=== PATIENT | male | born 1930 | race Hispanic/Latino ===

== ENCOUNTER 2017-09-20 19:32 | Inpatient (IN) | payer MEDICARE ==
[2017-09-20] MEDS ORDERED: ASPIRIN PO ONE (19:49)
[2017-09-20 20:28] LABS: Hematocrit 29.9 % (35.5-45.6); Hemoglobin 9.3 gm/dl (11.8-15.2); Mean Corpuscular HGB Conc 31 % (32-34); Mean Corpuscular Hemoglobin 31 pg (28-32); Mean Corpuscular Volume 99 fl (84-94); Platelet Count 267 K/mm3 (140-440); Red Blood Count 3.01 M/mm3 (3.65-5.03); Red Cell Distribution Width 14.9 % (13.2-15.2)
--- NOTE | 2017-09-20 20:28 | Emergency Department Report ---
ED Chest Pain HPI - General Chief Complaint: Chest Pain Stated Complaint: CHEST PAIN Time Seen by Provider: 09/20/17 20:22 Source: patient Mode of arrival: Stretcher Limitations: Altered Mental Status - History of Present Illness Initial Comments: Patient is a 87-year-old male, correction patient with history of dementia and hypertension. Patient brought to the ER for evaluation of left-sided chest pain. Patient is not communicating well but he is pointing to his left side of his chest. Unable to obtain more information at this moment. MD Complaint: chest pain -: This afternoon Onset: during rest Pain Location: left chest - Related Data Previous Rx's Medication Instructions Recorded Last Taken Type HYDROcodone/APAP 5-325 [Clarita 1 each PO Q6HR PRN #20 tablet 11/07/13 Unknown Rx 5/325] Allergies Allergy/AdvReac Type Severity Reaction Status Date / Time Penicillins Allergy Itching Verified 11/07/13 00:39 Heart Score - HEART Score History: Moderately suspicious EKG: Non-specific Age: > 65 Risk factors: 1-2 risk factors Troponin: < normal limit HEART Score: 5 - Critical Actions Critical Actions: 4-6 pts:12-16.6% risk of adverse cardiac event. Should be admitted ED Review of Systems ROS: Stated complaint: CHEST PAIN Other details as noted in HPI Comment: Unobtainable due to pts medical conditions ED Past Medical Hx - Past Medical History Hx Psychiatric Treatment: Yes (Depression) Hx COPD: Yes Hx Dementia: Yes - Surgical History Additional Surgical History: Back surgery in 2008 - Social History Smoking Status: Never Smoker Substance Use Type: None - Medications Home Medications: Home Medications Medication Instructions Recorded Confirmed Last Taken Type HYDROcodone/APAP 5-325 [Clarita 1 each PO Q6HR PRN #20 tablet 11/07/13 Unknown Rx 5/325] ED Physical Exam - General Limitations: Altered Mental Status General appearance: alert, in no apparent distress - Head Head exam: Present: atraumatic, normocephalic, normal inspection - Eye Eye exam: Present: normal appearance - ENT ENT exam: Present: normal exam, normal orophraynx, mucous membranes moist - Neck Neck exam: Present: normal inspection, full ROM. Absent: tenderness, meningismus, lymphadenopathy, thyromegaly - Respiratory Respiratory exam: Present: normal lung sounds bilaterally. Absent: respiratory distress, wheezes, rales, rhonchi, stridor, accessory muscle use, prolonged expiratory - Cardiovascular Cardiovascular Exam: Present: regular rate, normal rhythm, normal heart sounds - GI/Abdominal GI/Abdominal exam: Present: soft, normal bowel sounds. Absent: distended, tenderness, guarding, rebound, rigid, diminished bowel sounds, organomegaly, mass, bruit, pulsatile mass, hernia - Extremities Exam Extremities exam: Present: normal inspection, full ROM, normal capillary refill - Back Exam Back exam: Present: normal inspection, full ROM. Absent: tenderness, CVA tenderness (R), CVA tenderness (L), muscle spasm, paraspinal tenderness, vertebral tenderness - Neurological Exam Neurological exam: Present: alert, altered - Skin Skin exam: Present: warm, intact, normal color ED Course Vital Signs 09/20/17 19:50 Temperature 98.7 F Pulse Rate 72 Respiratory 16 Rate Blood Pressure 112/63 O2 Sat by Pulse 99 Oximetry ED Medical Decision Making - Lab Data Result diagrams: 09/20/17 20:07 09/20/17 20:07 - EKG Data -: EKG Interpreted by Me EKG shows normal: sinus rhythm Rate: normal - EKG Data Interpretation: no acute changes - Radiology Data Radiology results: image reviewed interpreted by me: Chest x-ray is unremarkable for acute findings. - Medical Decision Making I discussed the patient was Dr. Katy Gray, she agreed to admit to her service. Critical care attestation.: If time is entered above; I have spent that time in minutes in the direct care of this critically ill patient, excluding procedure time. ED Disposition Clinical Impression: Chest pain Disposition: -09 OP ADMIT IP TO THIS HOSP Is pt being admited?: Yes Condition: Stable Instructions: Chest Pain (ED)
[2017-09-20 20:39] LABS: BUN/Creatinine Ratio 22; Blood Urea Nitrogen 31 mg/dL (9-20); Calcium 8.4 mg/dL (8.4-10.2); Hemolysis Index 2
[2017-09-20 21:01] LABS: Bilirubin,Urine NEG (Negative); Blood,Urine NEG (Negative); Color,Urine Yellow (Yellow); Mucus,Urine 1+ /HPF; Urobilinogen,Urine < 2.0 mg/dL (<2.0)
[2017-09-20 21:07] LABS: Basophils % (Manual) 0 % (0.0-1.8); Ovalocytes 1+; Total Cells Counted 100
[2017-09-20 21:08] LABS: Anisocytosis 1+; Poikilocytosis 1+
[2017-09-20] MEDS ORDERED: SODIUM CHLORIDE FLUSH SYRINGE 10 ML IV PRN (22:30)
[2017-09-20] MEDS ORDERED: ZOFRAN IV PRN (22:30)
--- NOTE | 2017-09-20 22:33 | History and Physical Report ---
History of Present Illness Date of examination: 09/20/17 History of present illness: 87-year-old man with a history of dementia, depression, COPD was sent from senior care for evaluation of chest pain. The patient is unable to give a history. Review of system is unobtainable PAST MEDICAL HISTORY: Dementia, depression, COPD PAST SURGICAL HISTORY: Back surgery SOCIAL HISTORY: No alcohol, no drugs, tobacco, senior care resident FAMILY HISTORY: Hypertension Medications and Allergies Allergies Allergy/AdvReac Type Severity Reaction Status Date / Time Penicillins Allergy Itching Verified 11/07/13 00:39 Home Medications Medication Instructions Recorded Confirmed Last Taken Type Albuterol Sulfate [Ventolin HFA] 2 puff IH PRN PRN 09/20/17 09/20/17 Unknown History Donepezil [Aricept] 5 mg PO DAILY 09/20/17 09/20/17 Unknown History Ergocalciferol [Vitamin D2] 1 cap PO 2XW 09/20/17 09/20/17 Unknown History Mirtazapine [Remeron] 67.5 mg PO HS PRN 09/20/17 09/20/17 Unknown History Testosterone [Androderm] 1 each TD DAILY 09/20/17 09/20/17 Unknown History Tiotropium Br/Olodaterol HCl 1 puff IH DAILY 09/20/17 09/20/17 Unknown History [Stiolto Respimat Inhal [place]] Exam - Physical Exam Narrative exam: Gen. appearance: Patient lying in bed, no apparent distress HEENT: Normocephalic, atraumatic, pupils equally round and reactive to light, eyes are , extraocular movement intact, and no sclericterus,. No JVD or thyromegaly or nodule,neck supple, no carotid bruit ,mucous membranes moist, no exudate or erythema Heart: S1, S2, regular rate and rhythm Lungs: Clear bilaterally, breathing comfortable Abdomen: Positive bowel sounds, tender in mid abdomen, nondistended, no organomegaly Extremity:no edema cyanosis, clubbing Skin: no rash, dry, warm Neuro: Difficult to assess - Constitutional Vitals: Temp Pulse Resp BP Pulse Ox 98.7 F 71 16 124/64 96 09/20/17 19:50 09/20/17 22:06 09/20/17 22:06 09/20/17 22:06 09/20/17 22:06 Results - Labs CBC & Chem 7: 09/22/17 07:04 09/22/17 07:04 Labs: Abnormal lab results 09/20/17 09/20/17 09/20/17 Range/Units 20:07 20:07 20:44 WBC 13.9 H (4.5-11.0) K/mm3 RBC 3.01 L (3.65-5.03) M/mm3 Hgb 9.3 L (11.8-15.2) gm/dl Hct 29.9 L (35.5-45.6) % MCV 99 H (84-94) fl MCHC 31 L (32-34) % Lymphocytes % (Manual) 9.0 L (13.4-35.0) % Monocytes % (Manual) 12.0 H (0.0-7.3) % Eosinophils % (Manual) 6.0 H (0.0-4.3) % Seg Neutrophils # Man 9.7 H (1.8-7.7) K/mm3 Monocytes # (Manual) 1.7 H (0.0-0.8) K/mm3 Eosinophils # (Manual) 0.8 H (0.0-0.4) K/mm3 BUN 31 H (9-20) mg/dL Urine WBC (Auto) 13.0 H (0.0-6.0) /HPF - Imaging and Cardiology EKG: image reviewed Chest x-ray: image reviewed Assessment and Plan Assessment Chest pain UTI Dementia Depression COPD Plan Admit to medicine Check cardiac enzymes, d-dimer, consult cardiology DVT prophylaxis,, start Levaquin Continue appropriate outpatient medications
--- NOTE | 2017-09-20 22:39 | XRay Report ---
FINAL REPORT PROCEDURE: XR CHEST 1V AP TECHNIQUE: Chest radiograph anteroposterior view. CPT 64889 HISTORY: chest pain COMPARISON: No prior studies are available for comparison. FINDINGS: Heart: Normal. Mediastinum/Vessels: Normal. Lungs/Pleural space: No infiltrate, effusion, or pneumothorax is seen. There may be right pleural calcification. Bony thorax: Spinal stimulator device is present. Life support devices: None. IMPRESSION: No radiographic evidence of acute cardiopulmonary abnormality. Limited evaluation of the ribs. If there is concern for fracture, recommend dedicated rib series
[2017-09-20 23:32] LABS: Creatine Kinase MB < 1.0 ng/mL (0.0-4.0)
[2017-09-21] MEDS ORDERED: MIRTAZAPINE PO PRN (01:49)
[2017-09-21] MEDS ORDERED: PROAIR IH PRN (01:49)
[2017-09-21] MEDS ORDERED: PROVENTIL IH PRN (02:10)
[2017-09-21 08:19] LABS: Mean Corpuscular HGB Conc 33 % (32-34); Mean Corpuscular Hemoglobin 31 pg (28-32); Mean Corpuscular Volume 95 fl (84-94); Platelet Count 245 K/mm3 (140-440); Red Blood Count 2.85 M/mm3 (3.65-5.03); Red Cell Distribution Width 13.9 % (13.2-15.2)
[2017-09-21 08:21] LABS: Creatine Kinase MB < 1.0 ng/mL (0.0-4.0)
[2017-09-21 08:30] LABS: Calcium 8.3 mg/dL (8.4-10.2)
[2017-09-21 09:30] LABS: Band Neutrophils # (Manual) 0.4 K/mm3; Basophils % (Manual) 0 % (0.0-1.8); Total Cells Counted 100
[2017-09-21 09:31] LABS: Anisocytosis 1+; Platelet Estimate Consistent w Auto
[2017-09-21] MEDS ORDERED: LOVENOX SUB-Q SCH (10:00)
[2017-09-21] MEDS: SODIUM CHLORIDE FLUSH SYRINGE 10 ML IV SCH ×2 (10:29→22:00)
[2017-09-21] MEDS: LEVAQUIN 500MG/100ML 500 MG/100 ML BAG IV SCH (10:29)
[2017-09-21] MEDS: ARICEPT PO SCH (10:29)
--- NOTE | 2017-09-21 11:10 | Consultation ---
History of Present Illness Consult date: 09/21/17 Consult reason: chest pain History of present illness: This is an 87yr old male admitted with chest pain. A cardiac consultation was requested. History is unobtainable due to Dementia. No family members are present during this assessment. Patient is resting in bed and appears comfortable. He has wrist restraints in place. There were no reports of shortness of breath or palpitations. Cycled cardiac enzymes were normal. He has a negative chest x-ray. His ECG is benign, a normal sinus rhythm. Medications and Allergies Allergies Allergy/AdvReac Type Severity Reaction Status Date / Time Penicillins Allergy Itching Verified 11/07/13 00:39 Home Medications Medication Instructions Recorded Confirmed Last Taken Type Albuterol Sulfate [Ventolin HFA] 2 puff IH PRN PRN 09/20/17 09/20/17 Unknown History Donepezil [Aricept] 5 mg PO DAILY 09/20/17 09/20/17 Unknown History Ergocalciferol [Vitamin D2] 1 cap PO 2XW 09/20/17 09/20/17 Unknown History Mirtazapine [Remeron] 67.5 mg PO HS PRN 09/20/17 09/20/17 Unknown History Testosterone [Androderm] 1 each TD DAILY 09/20/17 09/20/17 Unknown History Tiotropium Br/Olodaterol HCl 1 puff IH DAILY 09/20/17 09/20/17 Unknown History [Stiolto Respimat Inhal [place]] Active Meds: Active Medications Acetaminophen (Tylenol) 650 mg PO Q4H PRN PRN Reason: Pain MILD(1-3)/Fever >100.5/[place] Albuterol (Proventil) 2.5 mg IH Q3HRT PRN PRN Reason: Shortness Of Breath Donepezil HCl (Aricept) 5 mg PO DAILY [facility] Last Admin: 09/21/17 10:29 Dose: 5 mg Enoxaparin Sodium (Lovenox) 40 mg SUB-Q QDAY NILDA Last Admin: 09/21/17 10:29 Dose: 40 mg Levofloxacin/Dextrose (Levaquin 500mg/100ml) 500 mg in 100 mls @ 100 mls/hr IV Q24HR NILDA; Protocol Last Admin: 09/21/17 10:29 Dose: 100 mls/hr Miscellaneous Medication (Mirtazapine [Remeron]) 67.5 mg PO HS PRN PRN Reason: Sleep Ondansetron HCl (Zofran) 4 mg IV Q8H PRN PRN Reason: Nausea And Vomiting Sodium Chloride (Sodium Chloride Flush Syringe 10 Ml) 10 ml IV BID NILDA Last Admin: 09/21/17 10:29 Dose: 10 ml Sodium Chloride (Sodium Chloride Flush Syringe 10 Ml) 10 ml IV PRN PRN PRN Reason: LINE FLUSH Physical Examination Vital Signs Temp Pulse Resp BP Pulse Ox 98.7 F 72 16 112/63 99 09/20/17 19:50 09/20/17 19:50 09/20/17 19:50 09/20/17 19:50 09/20/17 19:50 General appearance: no acute distress Cardiac: Positive: Reg Rate and Rhythm Results 09/21/17 07:14 09/21/17 07:14 Cardiac Enzymes 09/20/17 09/21/17 Range/Units 22:30 07:14 CK-MB (CK-2) < 1.0 < 1.0 (0.0-4.0) ng/mL CBC 09/20/17 09/21/17 Range/Units 20:07 07:14 WBC 13.9 H 13.1 H (4.5-11.0) K/mm3 RBC 3.01 L 2.85 L (3.65-5.03) M/mm3 Hgb 9.3 L 9.0 L (11.8-15.2) gm/dl Hct 29.9 L 27.0 L (35.5-45.6) % Plt Count 267 245 (140-440) K/mm3 Lymph # Pss Delivery Professional [place] # Pss Delivery Professional Eos # Pss Delivery Professional Baso # Pss Delivery Professional Comprehensive Metabolic Panel 09/20/17 09/21/17 Range/Units 20:07 07:14 Sodium 144 145 (137-145) mmol/L Potassium 3.9 3.9 (3.6-5.0) mmol/L Chloride 106.0 107.0 (98-107) mmol/L Carbon Dioxide 23 24 (22-30) mmol/L BUN 31 H 26 H (9-20) mg/dL Creatinine 1.4 1.2 (0.8-1.5) mg/dL Glucose 98 84 (75-100) mg/dL Calcium 8.4 8.3 L (8.4-10.2) mg/dL Assessment and Plan - Patient Problems (1) Chest pain Current Visit: Yes Status: Acute
[2017-09-21] MEDS ORDERED: ATIVAN IV NR (13:28)
--- NOTE | 2017-09-21 17:36 | Progress Note ---
Assessment and Plan Assessment and plan: Mr. Maguire is a 87 yo man from [facility] w/ a h/o hypertension and Dementia who pw chest pains * pCXR unremarkable for acute cardiopulmonary abnormality * WBC 13.1 * UA positive for UTI * Hgb 9.0 * D-Dimer 6059.16 * negative Troponin T x 4 * -Chest pains, atypical with elevated d-dimer: order stat CTA chest -UTI: treat with abx, no cultures sent -Acute encephalopathy -ARF, vasomotor nephrology, poa (no prior baseline cr) vs CKD 3: repeat bmp in am -Anemia: repeat levels -DVT prophylaxis: sq heparin History Interval history: Patient was seen and examined. Follow-up on current diagnosis of ams, still present. Overnight uneventful. Patient is confused. Imaging, nursing note, chart , labs and old chart reviewed. Hospitalist Physical - Physical exam Narrative exam: GEN: thin frail NAD, Awake, Alert, Orientated x0 HEENT: NCAT, EOMI, PERRL, OP Clear NECK: supple, no adenopathy, no thyromegaly, no JVD CVS/HEART: RRR, normal S1S2, pulses present bilaterally CHEST/LUNGS: CTA B, Symmetrical chest expansion, good air entry bilaterally GI/Abdomen: soft, NTND, good bowel sounds, no guarding or rebound /Bladder: no suprapubic tenderness, no CVA or paraspinal tenderness EXT/Skin: no c/c/e, no obvious rash MSK: FROM x 4 Neuro: CN 2-12 grossly intact, no new focal deficits Psych: calm but confused - Constitutional Vitals: Temp Pulse Resp BP Pulse Ox 98.8 F 70 18 133/71 95 09/21/17 09:00 09/21/17 15:00 09/21/17 10:00 09/21/17 08:18 09/21/17 10:00 General appearance: Present: no acute distress Results - Labs CBC & Chem 7: 09/21/17 07:14 09/21/17 07:14 Labs: Laboratory Last Values WBC 13.1 K/mm3 (4.5-11.0) H 09/21/17 07:14 RBC 2.85 M/mm3 (3.65-5.03) L 09/21/17 07:14 Hgb 9.0 gm/dl (11.8-15.2) L 09/21/17 07:14 Hct 27.0 % (35.5-45.6) L 09/21/17 07:14 MCV 95 fl (84-94) H 09/21/17 07:14 MCH 31 pg (28-32) 09/21/17 07:14 MCHC 33 % (32-34) 09/21/17 07:14 RDW 13.9 % (13.2-15.2) 09/21/17 07:14 Plt Count 245 K/mm3 (140-440) 09/21/17 07:14 Lymph % (Auto) Driller Portable 09/20/17 20:07 [place] % (Auto) Driller Portable 09/20/17 20:07 Eos % (Auto) Driller Portable 09/20/17 20:07 Baso % (Auto) Driller Portable 09/20/17 20:07 Lymph # Driller Portable 09/20/17 20:07 [place] # Driller Portable 09/20/17 20:07 Eos # Driller Portable 09/20/17 20:07 Baso # Driller Portable 09/20/17 20:07 Add Manual Diff Complete 09/21/17 07:14 Total Counted 100 09/21/17 07:14 Seg Neutrophils % Driller Portable 09/20/17 20:07 Seg Neuts % (Manual) 72.0 % (40.0-70.0) H 09/21/17 07:14 Band Neutrophils % 3.0 % 09/21/17 07:14 Lymphocytes % (Manual) 9.0 % (13.4-35.0) L 09/21/17 07:14 Reactive Lymphs % (Man) 0 % 09/21/17 07:14 Monocytes % (Manual) 13.0 % (0.0-7.3) H 09/21/17 07:14 Eosinophils % (Manual) 3.0 % (0.0-4.3) 09/21/17 07:14 Basophils % (Manual) 0 % (0.0-1.8) 09/21/17 07:14 Metamyelocytes % 0 % 09/21/17 07:14 Myelocytes % 0 % 09/21/17 07:14 Promyelocytes % 0 % 09/21/17 07:14 Blast Cells % 0 % 09/21/17 07:14 Nucleated RBC % Not Reportable 09/21/17 07:14 Seg Neutrophils # Driller Portable 09/20/17 20:07 Seg Neutrophils # Man 9.4 K/mm3 (1.8-7.7) H 09/21/17 07:14 Band Neutrophils # 0.4 K/mm3 09/21/17 07:14 Lymphocytes # (Manual) 1.2 K/mm3 (1.2-5.4) 09/21/17 07:14 Abs React Lymphs (Man) 0.0 K/mm3 09/21/17 07:14 Monocytes # (Manual) 1.7 K/mm3 (0.0-0.8) H 09/21/17 07:14 Eosinophils # (Manual) 0.4 K/mm3 (0.0-0.4) 09/21/17 07:14 Basophils # (Manual) 0.0 K/mm3 (0.0-0.1) 09/21/17 07:14 Metamyelocytes # 0.0 K/mm3 09/21/17 07:14 Myelocytes # 0.0 K/mm3 09/21/17 07:14 Promyelocytes # 0.0 K/mm3 09/21/17 07:14 Blast Cells # 0.0 K/mm3 09/21/17 07:14 WBC Morphology Not Reportable 09/21/17 07:14 Hypersegmented Neuts Not Reportable 09/21/17 07:14 Hyposegmented Neuts Not Reportable 09/21/17 07:14 Hypogranular Neuts Not Reportable 09/21/17 07:14 Smudge Cells Not Reportable 09/21/17 07:14 Toxic Granulation Not Reportable 09/21/17 07:14 Toxic Vacuolation Not Reportable 09/21/17 07:14 Dohle Bodies Not Reportable 09/21/17 07:14 Pelger-Huet Anomaly Not Reportable 09/21/17 07:14 Vincenzo Rods Not Reportable 09/21/17 07:14 Platelet Estimate Consistent w auto 09/21/17 07:14 Clumped Platelets Not Reportable 09/21/17 07:14 Plt Clumps, EDTA Not Reportable 09/21/17 07:14 Large Platelets Not Reportable 09/21/17 07:14 Giant Platelets Not Reportable 09/21/17 07:14 Platelet Satelliting Not Reportable 09/21/17 07:14 Plt Morphology Comment Not Reportable 09/21/17 07:14 RBC Morphology Not Reportable 09/21/17 07:14 Dimorphic RBCs Not Reportable 09/21/17 07:14 Polychromasia Rare 09/21/17 07:14 Hypochromasia Not Reportable 09/21/17 07:14 Poikilocytosis Not Reportable 09/21/17 07:14 Anisocytosis 1+ 09/21/17 07:14 Microcytosis Not Reportable 09/21/17 07:14 Macrocytosis Not Reportable 09/21/17 07:14 Spherocytes Not Reportable 09/21/17 07:14 Pappenheimer Bodies Not Reportable 09/21/17 07:14 Sickle Cells Not Reportable 09/21/17 07:14 Target Cells Not Reportable 09/21/17 07:14 Tear Drop Cells Not Reportable 09/21/17 07:14 Ovalocytes Not Reportable 09/21/17 07:14 Helmet Cells Not Reportable 09/21/17 07:14 [place] Bodies Not Reportable 09/21/17 07:14 [place] Rings Not Reportable 09/21/17 07:14 [place] Cells Not Reportable 09/21/17 07:14 Bite Cells Not Reportable 09/21/17 07:14 Crenated Cell Not Reportable 09/21/17 07:14 Elliptocytes Not Reportable 09/21/17 07:14 Acanthocytes (Spur) Not Reportable 09/21/17 07:14 Rouleaux Not Reportable 09/21/17 07:14 Hemoglobin C Crystals Not Reportable 09/21/17 07:14 Schistocytes Not Reportable 09/21/17 07:14 Malaria parasites Not Reportable 09/21/17 07:14 [place] Bodies Not Reportable 09/21/17 07:14 Hem Pathologist Commnt No 09/21/17 07:14 D-Dimer 6059.16 ng/mlDDU (0-234) H 09/21/17 02:12 Sodium 145 mmol/L (137-145) 09/21/17 07:14 Potassium 3.9 mmol/L (3.6-5.0) 09/21/17 07:14 Chloride 107.0 mmol/L (98-107) 09/21/17 07:14 Carbon Dioxide 24 mmol/L (22-30) 09/21/17 07:14 Anion Gap 18 mmol/L 09/21/17 07:14 BUN 26 mg/dL (9-20) H 09/21/17 07:14 Creatinine 1.2 mg/dL (0.8-1.5) 09/21/17 07:14 Estimated GFR 57 ml/min 09/21/17 07:14 BUN/Creatinine Ratio 22 % 09/21/17 07:14 Glucose 84 mg/dL (75-100) 09/21/17 07:14 Calcium 8.3 mg/dL (8.4-10.2) L 09/21/17 07:14 Total Creatine Kinase 40 units/L (55-170) L 09/21/17 07:14 CK-MB (CK-2) < 1.0 ng/mL (0.0-4.0) 09/21/17 07:14 CK-MB (CK-2) Rel Index 2.5 (0-4) 09/21/17 07:14 Troponin T < 0.010 ng/mL (0.00-0.029) 09/21/17 07:14 Urine Color Yellow (Yellow) 09/20/17 20:44 Urine Turbidity Clear (Clear) 09/20/17 20:44 Urine pH 5.0 (5.0-7.0) 09/20/17 20:44 Ur Specific [place] 1.025 (1.003-1.030) 09/20/17 20:44 Urine Protein 30 mg/dl mg/dL (Negative) 09/20/17 20:44 Urine Glucose (UA) Neg mg/dL (Negative) 09/20/17 20:44 Urine Ketones Tr mg/dL (Negative) 09/20/17 20:44 Urine Blood Neg (Negative) 09/20/17 20:44 Urine Nitrite Neg (Negative) 09/20/17 20:44 Urine Bilirubin Neg (Negative) 09/20/17 20:44 Urine Urobilinogen < 2.0 mg/dL (<2.0) 09/20/17 20:44 Ur Leukocyte Esterase Sm (Negative) 09/20/17 20:44 Urine WBC (Auto) 13.0 /HPF (0.0-6.0) H 09/20/17 20:44 Urine RBC (Auto) 1.0 /HPF (0.0-6.0) 09/20/17 20:44 U Epithel Cells (Auto) < 1.0 /HPF (0-13.0) 09/20/17 20:44 Urine Mucus 1+ /HPF 09/20/17 20:44
[2017-09-22 08:14] LABS: Hematocrit 28.3 % (35.5-45.6); Hemoglobin 9.4 gm/dl (11.8-15.2); Mean Corpuscular HGB Conc 33 % (32-34); Mean Corpuscular Hemoglobin 32 pg (28-32); Mean Corpuscular Volume 95 fl (84-94); Platelet Count 263 K/mm3 (140-440); Red Blood Count 2.97 M/mm3 (3.65-5.03); Red Cell Distribution Width 14.1 % (13.2-15.2)
[2017-09-22 08:24] LABS: BUN/Creatinine Ratio 23; Blood Urea Nitrogen 23 mg/dL (9-20); Calcium 8.3 mg/dL (8.4-10.2); Hemolysis Index 5
--- NOTE | 2017-09-22 10:54 | Cat Scan Report ---
CTA CHEST: HISTORY: chest pain. COMPARISON: none. TECHNIQUE: Helical CT in 1.25mm intervals following IV contrast. Pulmonary embolus protocol. Sagittal and coronal reformatted images. Rotational MIP images. FINDINGS: Contrast bolus is satisfactory. No pulmonary embolus is identified. Thyroid gland: The right thyroid lobe is mildly enlarged and heterogeneous. The left thyroid lobe is normal. Tracheobronchial tree: Normal. Esophagus: Normal. Heart: Normal. Pericardium: Normal. Mediastinum: Normal. Lung [place]: Moderate centrilobular emphysematous changes are identified bilaterally. Pleural Spaces: Trace bilateral pleural fluid effusions are identified. No pneumothorax. Musculoskeletal: Subtle nondisplaced left posterior rib fractures are identified at levels 8-10. The spleen is heterogeneous with suggestion of intermediate density perisplenic fluid. In a splenic laceration should be considered. IMPRESSION: No evidence for pulmonary embolus. Emphysema. Left posterior rib fractures at levels 8-10. Findings suspicious for a splenic laceration. Consider further evaluation of the abdomen and pelvis.
--- NOTE | 2017-09-22 11:05 | Progress Note ---
Assessment and Plan - Patient Problems (1) Elevated d-dimer Current Visit: Yes Status: Acute Plan to address problem: Patient's chest pain complaint is not reproducible, confusion and disorientation provides unreliable history. Due to marked elevation in d-dimer, we have recommended a CT of the chest for PE protocol. Otherwise no further cardiac ischemic workup is indicated in the absence of angina or ECG abnormalities. Subjective Date of service: 09/22/17 Interval history: Patient is confused, no acute cardiac problems. Objective Vital Signs Temp Pulse Pulse Resp BP BP Pulse Ox 09/22/17 09:07 95 09/22/17 08:03 61 82 L 09/22/17 08:01 98.2 F 20 163/68 09/22/17 06:02 97.6 F 68 18 126/58 94 09/22/17 02:53 73 18 09/22/17 01:22 98.2 F 68 18 110/68 98 09/21/17 23:00 79 09/21/17 21:14 97 09/21/17 20:28 79 F L 20 125/55 98 09/21/17 19:55 73 95 09/21/17 17:00 98.2 F 67 20 133/66 99 09/21/17 15:00 70 - Physical Examination General: Other (confused and disoriented) HEENT: Positive: PERRL Neck: Positive: neck supple Cardiac: Positive: Reg Rate and Rhythm Lungs: Positive: Decreased Breath Sounds Neuro: Positive: Grossly Intact Abdomen: Positive: Soft Skin: Positive: Clear Extremities: Absent: edema - Labs and Meds CBC 09/22/17 Range/Units 07:04 WBC 13.5 H (4.5-11.0) K/mm3 RBC 2.97 L (3.65-5.03) M/mm3 Hgb 9.4 L (11.8-15.2) gm/dl Hct 28.3 L (35.5-45.6) % Plt Count 263 (140-440) K/mm3 Comprehensive Metabolic Panel 09/22/17 Range/Units 07:04 Sodium 148 H (137-145) mmol/L Potassium 4.0 (3.6-5.0) mmol/L Chloride 109.2 H (98-107) mmol/L Carbon Dioxide 24 (22-30) mmol/L BUN 23 H (9-20) mg/dL Creatinine 1.0 (0.8-1.5) mg/dL Glucose 78 (75-100) mg/dL Calcium 8.3 L (8.4-10.2) mg/dL - Imaging and Cardiology EKG: image reviewed
[2017-09-22] MEDS: HEPARIN SUB-Q SCH ×2 (11:08→22:52)
[2017-09-22] MEDS: LEVAQUIN 500MG/100ML 500 MG/100 ML BAG IV SCH (11:08)
[2017-09-22] MEDS: ARICEPT PO SCH (11:08)
[2017-09-22] MEDS: SODIUM CHLORIDE FLUSH SYRINGE 10 ML IV SCH ×2 (11:09→23:00)
--- NOTE | 2017-09-22 15:08 | Progress Note ---
Assessment and Plan Assessment and plan: Mr. Maguire is a 87 yo man from [facility] called [facility] with a h/o hypertension and Dementia who pw chest pains * pCXR unremarkable for acute cardiopulmonary abnormality * WBC 13.1 * UA positive for UTI * Hgb 9.0 * D-Dimer 6059.16 * negative Troponin T x 4 * -Chest pains, atypical with elevated d-dimer: order stat CTA chest -Splenic laceration: stat Surgeon consult, I called Dr. Smith's answering service -Rib fractures: supportative care. -UTI: treat with abx, no cultures sent -Acute encephalopathy -ARF, vasomotor nephrology, poa (no prior baseline cr) w/CKD 3: repeat bmp in am -Anemia: repeat levels -DVT prophylaxis: sq heparin CTA chest wasn't done yesterday because no consent was obtained. i signed the consent. CTA chest done IMPRESSION: No evidence for pulmonary embolus. Emphysema. Left posterior rib fractures at levels 8-10. Findings suspicious for a splenic laceration. Consider further evaluation of the abdomen and pelvis. Consult Gen. Surgeon geriatric personal care aide, Dr. Smith, i called answering service, spoke with [facility] message. Dr. Moser is covering, await call back CCT 32 minutes History Interval history: Patient was seen and examined. Follow-up on current diagnosis of ams, still present. Overnight uneventful. Patient is confused. Imaging, nursing note, chart , labs and old chart reviewed. Hospitalist Physical - Physical exam Narrative exam: GEN: thin frail NAD, Awake, Alert, Orientated x2 HEENT: NCAT, EOMI, PERRL, OP Clear NECK: supple, no adenopathy, no thyromegaly, no JVD CVS/HEART: RRR, normal S1S2, pulses present bilaterally CHEST/LUNGS: CTA B, Symmetrical chest expansion, good air entry bilaterally GI/Abdomen: soft, NTND, good bowel sounds, no guarding or rebound /Bladder: no suprapubic tenderness, no CVA or paraspinal tenderness EXT/Skin: no c/c/e, no obvious rash MSK: FROM x 4 Neuro: CN 2-12 grossly intact, no new focal deficits Psych: calm but confused - Constitutional Vitals: Temp Pulse Resp BP Pulse Ox 98.2 F 113 H 18 116/71 84 09/22/17 11:16 07/04/18 11:17 09/22/17 11:16 09/22/17 11:16 09/22/17 11:17 General appearance: Present: no acute distress Results - Labs CBC & Chem 7: 09/22/17 07:04 09/22/17 07:04 Labs: Laboratory Last Values WBC 13.5 K/mm3 (4.5-11.0) H 09/22/17 07:04 RBC 2.97 M/mm3 (3.65-5.03) L 09/22/17 07:04 Hgb 9.4 gm/dl (11.8-15.2) L 09/22/17 07:04 Hct 28.3 % (35.5-45.6) L 09/22/17 07:04 MCV 95 fl (84-94) H 09/22/17 07:04 MCH 32 pg (28-32) 09/22/17 07:04 MCHC 33 % (32-34) 09/22/17 07:04 RDW 14.1 % (13.2-15.2) 09/22/17 07:04 Plt Count 263 K/mm3 (140-440) 09/22/17 07:04 Lymph % (Auto) [employer] 09/20/17 20:07 [place] % (Auto) [employer] 09/20/17 20:07 Eos % (Auto) [employer] 09/20/17 20:07 Baso % (Auto) [employer] 09/20/17 20:07 Lymph # [employer] 09/20/17 20:07 [place] # [employer]er 09/20/17 20:07 Eos # [employer] 09/20/17 20:07 Baso # [employer] 09/20/17 20:07 Add Manual Diff Complete 09/21/17 07:14 Total Counted 100 09/21/17 07:14 Seg Neutrophils % [employer] 09/20/17 20:07 Seg Neuts % (Manual) 72.0 % (40.0-70.0) H 09/21/17 07:14 Band Neutrophils % 3.0 % 09/21/17 07:14 Lymphocytes % (Manual) 9.0 % (13.4-35.0) L 09/21/17 07:14 Reactive Lymphs % (Man) 0 % 09/21/17 07:14 Monocytes % (Manual) 13.0 % (0.0-7.3) H 09/21/17 07:14 Eosinophils % (Manual) 3.0 % (0.0-4.3) 09/21/17 07:14 Basophils % (Manual) 0 % (0.0-1.8) 09/21/17 07:14 Metamyelocytes % 0 % 09/21/17 07:14 Myelocytes % 0 % 09/21/17 07:14 Promyelocytes % 0 % 09/21/17 07:14 Blast Cells % 0 % 09/21/17 07:14 Nucleated RBC % Not Reportable 09/21/17 07:14 Seg Neutrophils # [employer] 09/20/17 20:07 Seg Neutrophils # Man 9.4 K/mm3 (1.8-7.7) H 09/21/17 07:14 Band Neutrophils # 0.4 K/mm3 09/21/17 07:14 Lymphocytes # (Manual) 1.2 K/mm3 (1.2-5.4) 09/21/17 07:14 Abs React Lymphs (Man) 0.0 K/mm3 09/21/17 07:14 Monocytes # (Manual) 1.7 K/mm3 (0.0-0.8) H 09/21/17 07:14 Eosinophils # (Manual) 0.4 K/mm3 (0.0-0.4) 09/21/17 07:14 Basophils # (Manual) 0.0 K/mm3 (0.0-0.1) 09/21/17 07:14 Metamyelocytes # 0.0 K/mm3 09/21/17 07:14 Myelocytes # 0.0 K/mm3 09/21/17 07:14 Promyelocytes # 0.0 K/mm3 09/21/17 07:14 Blast Cells # 0.0 K/mm3 09/21/17 07:14 WBC Morphology Not Reportable 09/21/17 07:14 Hypersegmented Neuts Not Reportable 09/21/17 07:14 Hyposegmented Neuts Not Reportable 09/21/17 07:14 Hypogranular Neuts Not Reportable 09/21/17 07:14 Smudge Cells Not Reportable 09/21/17 07:14 Toxic Granulation Not Reportable 09/21/17 07:14 Toxic Vacuolation Not Reportable 09/21/17 07:14 Dohle Bodies Not Reportable 09/21/17 07:14 Pelger-Huet Anomaly Not Reportable 09/21/17 07:14 Vincenzo Rods Not Reportable 09/21/17 07:14 Platelet Estimate Consistent w auto 09/21/17 07:14 Clumped Platelets Not Reportable 09/21/17 07:14 Plt Clumps, EDTA Not Reportable 09/21/17 07:14 Large Platelets Not Reportable 09/21/17 07:14 Giant Platelets Not Reportable 09/21/17 07:14 Platelet Satelliting Not Reportable 09/21/17 07:14 Plt Morphology Comment Not Reportable 09/21/17 07:14 RBC Morphology Not Reportable 09/21/17 07:14 Dimorphic RBCs Not Reportable 09/21/17 07:14 Polychromasia Rare 09/21/17 07:14 Hypochromasia Not Reportable 09/21/17 07:14 Poikilocytosis Not Reportable 09/21/17 07:14 Anisocytosis 1+ 09/21/17 07:14 Microcytosis Not Reportable 09/21/17 07:14 Macrocytosis Not Reportable 09/21/17 07:14 Spherocytes Not Reportable 09/21/17 07:14 Pappenheimer Bodies Not Reportable 09/21/17 07:14 Sickle Cells Not Reportable 09/21/17 07:14 Target Cells Not Reportable 09/21/17 07:14 Tear Drop Cells Not Reportable 09/21/17 07:14 Ovalocytes Not Reportable 09/21/17 07:14 Helmet Cells Not Reportable 09/21/17 07:14 [place] Bodies Not Reportable 09/21/17 07:14 [place] Rings Not Reportable 09/21/17 07:14 [place] Cells Not Reportable 09/21/17 07:14 Bite Cells Not Reportable 09/21/17 07:14 Crenated Cell Not Reportable 09/21/17 07:14 Elliptocytes Not Reportable 09/21/17 07:14 Acanthocytes (Spur) Not Reportable 09/21/17 07:14 Rouleaux Not Reportable 09/21/17 07:14 Hemoglobin C Crystals Not Reportable 09/21/17 07:14 Schistocytes Not Reportable 09/21/17 07:14 Malaria parasites Not Reportable 09/21/17 07:14 [place] Bodies Not Reportable 09/21/17 07:14 Hem Pathologist Commnt No 09/21/17 07:14 D-Dimer 6059.16 ng/mlDDU (0-234) H 09/21/17 02:12 Sodium 148 mmol/L (137-145) H 09/22/17 07:04 Potassium 4.0 mmol/L (3.6-5.0) 09/22/17 07:04 Chloride 109.2 mmol/L (98-107) H 09/22/17 07:04 Carbon Dioxide 24 mmol/L (22-30) 09/22/17 07:04 Anion Gap 19 mmol/L 09/22/17 07:04 BUN 23 mg/dL (9-20) H 09/22/17 07:04 Creatinine 1.0 mg/dL (0.8-1.5) 09/22/17 07:04 Estimated GFR > 60 ml/min 09/22/17 07:04 BUN/Creatinine Ratio 23 % 09/22/17 07:04 Glucose 78 mg/dL (75-100) 09/22/17 07:04 Calcium 8.3 mg/dL (8.4-10.2) L 09/22/17 07:04 Total Creatine Kinase 40 units/L (55-170) L 09/21/17 07:14 CK-MB (CK-2) < 1.0 ng/mL (0.0-4.0) 09/21/17 07:14 CK-MB (CK-2) Rel Index 2.5 (0-4) 09/21/17 07:14 Troponin T < 0.010 ng/mL (0.00-0.029) 09/21/17 07:14 Urine Color Yellow (Yellow) 09/20/17 20:44 Urine Turbidity Clear (Clear) 09/20/17 20:44 Urine pH 5.0 (5.0-7.0) 09/20/17 20:44 Ur Specific [place] 1.025 (1.003-1.030) 09/20/17 20:44 Urine Protein 30 mg/dl mg/dL (Negative) 09/20/17 20:44 Urine Glucose (UA) Neg mg/dL (Negative) 09/20/17 20:44 Urine Ketones Tr mg/dL (Negative) 09/20/17 20:44 Urine Blood Neg (Negative) 09/20/17 20:44 Urine Nitrite Neg (Negative) 09/20/17 20:44 Urine Bilirubin Neg (Negative) 09/20/17 20:44 Urine Urobilinogen < 2.0 mg/dL (<2.0) 09/20/17 20:44 Ur Leukocyte Esterase Sm (Negative) 09/20/17 20:44 Urine WBC (Auto) 13.0 /HPF (0.0-6.0) H 09/20/17 20:44 Urine RBC (Auto) 1.0 /HPF (0.0-6.0) 09/20/17 20:44 U Epithel Cells (Auto) < 1.0 /HPF (0-13.0) 09/20/17 20:44 Urine Mucus 1+ /HPF 09/20/17 20:44
--- NOTE | 2017-09-22 22:33 | Consultation ---
HISTORY OF PRESENT ILLNESS: This man was a resident in a [facility]. Apparently, he was transferred here because of questionable chest pain. The patient is an 87-year-old white male with a history of dementia, depression, and COPD. I could not get any specific history from him. I was called to evaluate him because of questionable laceration of the spleen. The patient on the x-ray and the CAT scan showed evidence of questionable fractures to the posterior rib on the left side, only 1. Chest x-ray was essentially negative. Chest CT was negative. CBC showed a white count of 13,000 over the last 3 days and his hemoglobin was 9.3. His platelets were 250 all through. His potassium was normal. Sodium was normal. Chloride was normal. BUN was 31, today is 23. His troponins were normal. I was asked to evaluate him from a general surgical point of view especially that there is questionable spleen laceration. I was barely able to communicate with the man, he looked demented, but he is normal otherwise. PHYSICAL EXAMINATION: HEAD AND NECK: Essentially negative. Neck is supple. CHEST: Essentially clear to me. HEART: Sounds normal. ABDOMEN: Protuberant, soft, benign. No evidence of any acute tenderness anywhere. EXTREMITIES: Showed no sign of edema. NEUROLOGIC: Physiologic other than being demented. IMPRESSION: Normal examination, surgery araya. Dementia. Fracture of the rib in the left side by history. No evidence of any left upper abdominal tenderness to suggest any spleen laceration. At this point, I would just continue observation. I am going to check his CBC in the morning and then we will go from there. The patient is already on clear liquids and he is on Levaquin. JOB# [id number] RADHA/NINFA MERINO
[2017-09-22] MEDS: TYLENOL PO PRN (23:00)
[2017-09-23] MEDS: ARICEPT PO SCH (10:48)
[2017-09-23] MEDS: HEPARIN SUB-Q SCH ×2 (10:49→21:58)
[2017-09-23] MEDS: SODIUM CHLORIDE FLUSH SYRINGE 10 ML IV SCH ×2 (10:49→21:59)
[2017-09-23] MEDS: LEVAQUIN 500MG/100ML 500 MG/100 ML BAG IV SCH (10:49)
--- NOTE | 2017-09-23 13:15 | Progress Note ---
Subjective Patient Reports: Positive: feels better Narrative: doing fine , no aches no pains abd soft and benign tolerating PO well can go Home fro a surgical view point . Objective Vital Signs - 12hr 09/23/17 09/23/17 09/23/17 05:21 07:00 07:51 Temperature 98.1 F Pulse Rate 78 69 75 Respiratory 18 20 Rate Blood Pressure 131/70 136/71 O2 Sat by Pulse 91 93 Oximetry 09/23/17 08:00 Temperature 98.1 F Pulse Rate Respiratory Rate Blood Pressure O2 Sat by Pulse Oximetry - Labs 09/22/17 07:04 09/22/17 07:04
--- NOTE | 2017-09-23 13:59 | Progress Note ---
Assessment and Plan - Patient Problems (1) Chest pain Current Visit: Yes Status: Acute Plan to address problem: Atypical noncardiac chest pain, conservative cardiac management. Subjective Date of service: 09/23/17 Interval history: Patient is comfortable, in no acute distress. Chest CT scan showed posterior rib fractures with possible spleen laceration, the internal medicine service is evaluating these findings. Objective Vital Signs Temp Pulse Resp BP BP Pulse Ox 09/23/17 12:25 80 20 105/64 92 09/23/17 12:00 99.3 F 80 20 105/64 93 09/23/17 08:00 98.1 F 09/23/17 07:51 75 20 136/71 93 09/23/17 07:00 69 09/23/17 05:21 98.1 F 78 18 131/70 91 09/22/17 23:28 98.2 F 74 18 118/56 93 09/22/17 22:00 20 09/22/17 20:00 97.8 F 90 18 116/67 90 09/22/17 15:41 98.4 F 18 121/68 - Physical Examination General: No Apparent Distress HEENT: Positive: PERRL Neck: Positive: neck supple Cardiac: Positive: Reg Rate and Rhythm Lungs: Positive: Decreased Breath Sounds Neuro: Positive: Grossly Intact Abdomen: Positive: Soft Skin: Positive: Clear Extremities: Absent: edema - Imaging and Cardiology EKG: image reviewed
--- NOTE | 2017-09-23 14:32 | XRay Report ---
AP CHEST: HISTORY: Short of breath Compared to the exams dated 09/20/17 and 09/22/17. Moderate underlying emphysema is again noted. Trace bilateral pleural effusions are again identified. A small amount of fluid is noted in the right major fissure which simulates a mass. No evidence for pneumonia or pneumothorax. Heart size is within normal limits. Previously described left rib fractures are not appreciated on this exam. IMPRESSION: Emphysema. Trace pleural effusions. No significant change since previous exams.
--- NOTE | 2017-09-23 15:08 | Progress Note ---
Assessment and Plan Assessment and plan: Mr. Maguire is a 87 yo man from [facility] called [facility] with a h/o hypertension and Dementia who pw chest pains * pCXR unremarkable for acute cardiopulmonary abnormality * WBC 13.1 * UA positive for UTI * Hgb 9.0 * D-Dimer 6059.16 * negative Troponin T x 4 * -Chest pains, atypical, costochondritis most likely with rib fractures -Acute COPD exacerbation: start steroids, duonebs and continue Levaquin -Splenic laceration: stat Surgeon consult, I called Dr. Smith's answering service -Rib fractures: supportative care. -UTI, poa: treat with abx, no urine cultures sent on admission -Acute encephalopathy -ARF, vasomotor nephrology, poa (no prior baseline cr) w/CKD 3: repeat bmp in am -Anemia: repeat levels -DVT prophylaxis: sq heparin -Splenic laceration evaluated by Surgeon, Dr. Moser -Disposition: continue inpatient care, anticipate d/c in AM Not in restraints anymore * CTA chest IMPRESSION: No evidence for pulmonary embolus. Emphysema. Left posterior rib fractures at levels 8-10. Findings suspicious for a splenic laceration. Consider further evaluation of the abdomen and pelvis. Today he developed acute respiratory distress with bilateral wheezing, most likely AE copd; will treat according, wasn't hypoxic, reviewed ABGs. ordered stat CXR==>patient condition stabilized, possibly d/c tomorrow CCT 36 minutes History Interval history: Patient was seen and examined. Follow-up on current diagnosis of ams, still present. Overnight uneventful. Patient is confused. Imaging, nursing note, chart , labs and old chart reviewed. Today he started to gasp for air, he was choking. He had auditory wheezing. Hospitalist Physical - Physical exam Narrative exam: GEN: thin frail NAD, Awake, Alert, Orientated x2 HEENT: NCAT, EOMI, PERRL, OP Clear NECK: supple, no adenopathy, no thyromegaly, no JVD CVS/HEART: RRR, normal S1S2, pulses present bilaterally CHEST/LUNGS: bilateral wheezing, Symmetrical chest expansion, good air entry bilaterally GI/Abdomen: soft, NTND, good bowel sounds, no guarding or rebound /Bladder: no suprapubic tenderness, no CVA or paraspinal tenderness EXT/Skin: no c/c/e, no obvious rash MSK: FROM x 4 Neuro: CN 2-12 grossly intact, no new focal deficits Psych: calm but confused - Constitutional Vitals: Temp Pulse Resp BP Pulse Ox 99.3 F 72 18 105/64 97 09/23/17 12:00 09/23/17 14:25 09/23/17 14:25 09/23/17 12:25 09/23/17 14:37 General appearance: Present: no acute distress Results - Labs CBC & Chem 7: 09/22/17 07:04 09/22/17 07:04 Labs: Laboratory Last Values WBC 13.5 K/mm3 (4.5-11.0) H 09/22/17 07:04 RBC 2.97 M/mm3 (3.65-5.03) L 09/22/17 07:04 Hgb 9.4 gm/dl (11.8-15.2) L 09/22/17 07:04 Hct 28.3 % (35.5-45.6) L 09/22/17 07:04 MCV 95 fl (84-94) H 09/22/17 07:04 MCH 32 pg (28-32) 09/22/17 07:04 MCHC 33 % (32-34) 09/22/17 07:04 RDW 14.1 % (13.2-15.2) 09/22/17 07:04 Plt Count 263 K/mm3 (140-440) 09/22/17 07:04 Lymph % (Auto) [employer] Room Attendant 09/20/17 20:07 [place] % (Auto) [employer] Attendant 09/20/17 20:07 Eos % (Auto) [employer] Room Attendant 09/20/17 20:07 Baso % (Auto) [employer] Room Attendant 09/20/17 20:07 Lymph # [employer] Room Attendant 09/20/17 20:07 [place] # [employer] Room Attendant 09/20/17 20:07 Eos # [employer] Locker Room Attendant 09/20/17 20:07 Baso # [employer] Room Attendant 09/20/17 20:07 Add Manual Diff Complete 09/21/17 07:14 Total Counted 100 09/21/17 07:14 Seg Neutrophils % [employer] Attendant 09/20/17 20:07 Seg Neuts % (Manual) 72.0 % (40.0-70.0) H 09/21/17 07:14 Band Neutrophils % 3.0 % 09/21/17 07:14 Lymphocytes % (Manual) 9.0 % (13.4-35.0) L 09/21/17 07:14 Reactive Lymphs % (Man) 0 % 09/21/17 07:14 Monocytes % (Manual) 13.0 % (0.0-7.3) H 09/21/17 07:14 Eosinophils % (Manual) 3.0 % (0.0-4.3) 09/21/17 07:14 Basophils % (Manual) 0 % (0.0-1.8) 09/21/17 07:14 Metamyelocytes % 0 % 09/21/17 07:14 Myelocytes % 0 % 09/21/17 07:14 Promyelocytes % 0 % 09/21/17 07:14 Blast Cells % 0 % 09/21/17 07:14 Nucleated RBC % Not Reportable 09/21/17 07:14 Seg Neutrophils # [employer] Attendant 09/20/17 20:07 Seg Neutrophils # Man 9.4 K/mm3 (1.8-7.7) H 09/21/17 07:14 Band Neutrophils # 0.4 K/mm3 09/21/17 07:14 Lymphocytes # (Manual) 1.2 K/mm3 (1.2-5.4) 09/21/17 07:14 Abs React Lymphs (Man) 0.0 K/mm3 09/21/17 07:14 Monocytes # (Manual) 1.7 K/mm3 (0.0-0.8) H 09/21/17 07:14 Eosinophils # (Manual) 0.4 K/mm3 (0.0-0.4) 09/21/17 07:14 Basophils # (Manual) 0.0 K/mm3 (0.0-0.1) 09/21/17 07:14 Metamyelocytes # 0.0 K/mm3 09/21/17 07:14 Myelocytes # 0.0 K/mm3 09/21/17 07:14 Promyelocytes # 0.0 K/mm3 09/21/17 07:14 Blast Cells # 0.0 K/mm3 09/21/17 07:14 WBC Morphology Not Reportable 09/21/17 07:14 Hypersegmented Neuts Not Reportable 09/21/17 07:14 Hyposegmented Neuts Not Reportable 09/21/17 07:14 Hypogranular Neuts Not Reportable 09/21/17 07:14 Smudge Cells Not Reportable 09/21/17 07:14 Toxic Granulation Not Reportable 09/21/17 07:14 Toxic Vacuolation Not Reportable 09/21/17 07:14 Dohle Bodies Not Reportable 09/21/17 07:14 Pelger-Huet Anomaly Not Reportable 09/21/17 07:14 Vincenzo Rods Not Reportable 09/21/17 07:14 Platelet Estimate Consistent w auto 09/21/17 07:14 Clumped Platelets Not Reportable 09/21/17 07:14 Plt Clumps, EDTA Not Reportable 09/21/17 07:14 Large Platelets Not Reportable 09/21/17 07:14 Giant Platelets Not Reportable 09/21/17 07:14 Platelet Satelliting Not Reportable 09/21/17 07:14 Plt Morphology Comment Not Reportable 09/21/17 07:14 RBC Morphology Not Reportable 09/21/17 07:14 Dimorphic RBCs Not Reportable 09/21/17 07:14 Polychromasia Rare 09/21/17 07:14 Hypochromasia Not Reportable 09/21/17 07:14 Poikilocytosis Not Reportable 09/21/17 07:14 Anisocytosis 1+ 09/21/17 07:14 Microcytosis Not Reportable 09/21/17 07:14 Macrocytosis Not Reportable 09/21/17 07:14 Spherocytes Not Reportable 09/21/17 07:14 Pappenheimer Bodies Not Reportable 09/21/17 07:14 Sickle Cells Not Reportable 09/21/17 07:14 Target Cells Not Reportable 09/21/17 07:14 Tear Drop Cells Not Reportable 09/21/17 07:14 Ovalocytes Not Reportable 09/21/17 07:14 Helmet Cells Not Reportable 09/21/17 07:14 [place] Bodies Not Reportable 09/21/17 07:14 [place] Rings Not Reportable 09/21/17 07:14 [place] Cells Not Reportable 09/21/17 07:14 Bite Cells Not Reportable 09/21/17 07:14 Crenated Cell Not Reportable 09/21/17 07:14 Elliptocytes Not Reportable 09/21/17 07:14 Acanthocytes (Spur) Not Reportable 09/21/17 07:14 Rouleaux Not Reportable 09/21/17 07:14 Hemoglobin C Crystals Not Reportable 09/21/17 07:14 Schistocytes Not Reportable 09/21/17 07:14 Malaria parasites Not Reportable 09/21/17 07:14 [place] Bodies Not Reportable 09/21/17 07:14 Hem Pathologist Commnt No 09/21/17 07:14 D-Dimer 6059.16 ng/mlDDU (0-234) H 09/21/17 02:12 POC ABG pH 7.457 (7.35-7.45) H 09/23/17 14:06 POC ABG pCO2 34.5 (35-45) L 09/23/17 14:06 POC ABG pO2 86 (80-105) 09/23/17 14:06 POC ABG HCO3 24.3 09/23/17 14:06 POC ABG Total CO2 25 09/23/17 14:06 POC ABG O2 Sat 97 09/23/17 14:06 POC ABG Base Excess 0 09/23/17 14:06 FiO2 28 % 09/23/17 14:06 Sodium 148 mmol/L (137-145) H 09/22/17 07:04 Potassium 4.0 mmol/L (3.6-5.0) 09/22/17 07:04 Chloride 109.2 mmol/L (98-107) H 09/22/17 07:04 Carbon Dioxide 24 mmol/L (22-30) 09/22/17 07:04 Anion Gap 19 mmol/L 09/22/17 07:04 BUN 23 mg/dL (9-20) H 09/22/17 07:04 Creatinine 1.0 mg/dL (0.8-1.5) 09/22/17 07:04 Estimated GFR > 60 ml/min 09/22/17 07:04 BUN/Creatinine Ratio 23 % 09/22/17 07:04 Glucose 78 mg/dL (75-100) 09/22/17 07:04 Calcium 8.3 mg/dL (8.4-10.2) L 09/22/17 07:04 Total Creatine Kinase 40 units/L (55-170) L 09/21/17 07:14 CK-MB (CK-2) < 1.0 ng/mL (0.0-4.0) 09/21/17 07:14 CK-MB (CK-2) Rel Index 2.5 (0-4) 09/21/17 07:14 Troponin T < 0.010 ng/mL (0.00-0.029) 09/21/17 07:14 Urine Color Yellow (Yellow) 09/20/17 20:44 Urine Turbidity Clear (Clear) 09/20/17 20:44 Urine pH 5.0 (5.0-7.0) 09/20/17 20:44 Ur Specific [place] 1.025 (1.003-1.030) 09/20/17 20:44 Urine Protein 30 mg/dl mg/dL (Negative) 09/20/17 20:44 Urine Glucose (UA) Neg mg/dL (Negative) 09/20/17 20:44 Urine Ketones Tr mg/dL (Negative) 09/20/17 20:44 Urine Blood Neg (Negative) 09/20/17 20:44 Urine Nitrite Neg (Negative) 09/20/17 20:44 Urine Bilirubin Neg (Negative) 09/20/17 20:44 Urine Urobilinogen < 2.0 mg/dL (<2.0) 09/20/17 20:44 Ur Leukocyte Esterase Sm (Negative) 09/20/17 20:44 Urine WBC (Auto) 13.0 /HPF (0.0-6.0) H 09/20/17 20:44 Urine RBC (Auto) 1.0 /HPF (0.0-6.0) 09/20/17 20:44 U Epithel Cells (Auto) < 1.0 /HPF (0-13.0) 09/20/17 20:44 Urine Mucus 1+ /HPF 09/20/17 20:44
[2017-09-23] MEDS: DELTASONE PO SCH (18:25)
[2017-09-23] MEDS ORDERED: REMERON PO PRN (20:12)
[2017-09-23] MEDS: DUONEB *Not for PRN Use IH SCH (20:53)
[2017-09-23] MEDS: TYLENOL PO PRN (21:58)
[2017-09-23] MEDS ORDERED: REMERON PO SCH (22:00)
[2017-09-24 06:49] LABS: Hematocrit 26.8 % (35.5-45.6); Hemoglobin 8.9 gm/dl (11.8-15.2); Mean Corpuscular HGB Conc 33 % (32-34); Mean Corpuscular Hemoglobin 31 pg (28-32); Mean Corpuscular Volume 94 fl (84-94); Platelet Count 298 K/mm3 (140-440); Red Blood Count 2.86 M/mm3 (3.65-5.03); Red Cell Distribution Width 14.1 % (13.2-15.2)
[2017-09-24 07:03] LABS: BUN/Creatinine Ratio 16; Blood Urea Nitrogen 16 mg/dL (9-20); Calcium 8.2 mg/dL (8.4-10.2); Hemolysis Index 1
[2017-09-24] MEDS: DUONEB *Not for PRN Use IH SCH ×2 (08:20→13:26)
[2017-09-24] MEDS: LEVAQUIN PO SCH ×2 (10:21→13:58)
[2017-09-24] MEDS: ARICEPT PO SCH ×2 (10:21→13:58)
[2017-09-24] MEDS: HEPARIN SUB-Q SCH (10:21)
[2017-09-24] MEDS: DELTASONE PO SCH ×2 (10:21→13:58)
--- NOTE | 2017-09-24 12:01 | Progress Note ---
Assessment and Plan Emphysema Rib fractures Possible spleen laceration by CT chest Dementia Recommendations: Conservative cardiac management No further cardiac work-up is needed Subjective Date of service: 09/24/17 Principal diagnosis: Malaise Interval history: Patient describes feeling bad with pain all over No cardiac events overnight Objective Vital Signs Temp Pulse Pulse Pulse Resp Resp BP 09/24/17 07:45 97.6 F 77 18 133/54 09/24/17 06:29 98.4 F 74 18 09/24/17 01:33 98.3 F 73 18 09/23/17 21:11 70 16 09/23/17 21:06 85 20 09/23/17 20:56 83 20 09/23/17 20:43 98.3 F 70 18 09/23/17 16:20 69 20 115/64 09/23/17 16:00 98.1 F 09/23/17 14:37 09/23/17 14:25 72 18 09/23/17 14:08 73 18 09/23/17 12:25 80 20 105/64 09/23/17 12:00 99.3 F 80 20 BP Pulse Ox 09/24/17 07:45 100 09/24/17 06:29 127/77 09/24/17 01:33 128/70 100 09/23/17 21:11 94 09/23/17 21:06 09/23/17 20:56 95 09/23/17 20:43 113/66 94 09/23/17 16:20 93 09/23/17 16:00 09/23/17 14:37 97 09/23/17 14:25 09/23/17 14:08 09/23/17 12:25 92 09/23/17 12:00 105/64 93 - Physical Examination General: No Apparent Distress HEENT: Positive: PERRL Neck: Positive: neck supple Cardiac: Positive: Reg Rate and Rhythm Lungs: Positive: Normal Exam Neuro: Positive: Grossly Intact Abdomen: Positive: Soft Skin: Positive: Clear Extremities: Absent: edema - Labs and Meds CBC 09/24/17 Range/Units 05:44 WBC 11.2 H (4.5-11.0) K/mm3 RBC 2.86 L (3.65-5.03) M/mm3 Hgb 8.9 L (11.8-15.2) gm/dl Hct 26.8 L (35.5-45.6) % Plt Count 298 (140-440) K/mm3 Comprehensive Metabolic Panel 09/24/17 Range/Units 05:44 Sodium 144 (137-145) mmol/L Potassium 3.9 (3.6-5.0) mmol/L Chloride 105.3 (98-107) mmol/L Carbon Dioxide 26 (22-30) mmol/L BUN 16 (9-20) mg/dL Creatinine 1.0 (0.8-1.5) mg/dL Glucose 99 (75-100) mg/dL Calcium 8.2 L (8.4-10.2) mg/dL - Imaging and Cardiology EKG: image reviewed
--- NOTE | 2017-09-24 13:00 | Discharge Summary ---
Providers - Providers Date of Admission: 09/23/17 10:15 Date of discharge: 09/24/17 Attending physician: YAHIR LANTIGUA 09/20/17 22:30 Consult to Physician [CONS] Routine Comment: Consulting Provider: LORRI SINHA Physician Instructions: Reason For Exam: cp 09/21/17 11:47 Speech Therapy Evaluation and Treat [CONS] Routine Reason For Exam: elev 09/22/17 15:01 Consult to Physician [CONS] Routine Comment: Consulting Provider: NEHAL LAUGHLIN Physician Instructions: Reason For Exam: splenic laceration 09/23/17 16:09 Consult to Physician [CONS] Routine Comment: Consulting Provider: HEATHER SCHMIDT Physician Instructions: Reason For Exam: Copd Exacerbation Primary care physician: [employer] Hospitalization Condition: Stable Hospital course: Mr. Maguire is a 87 yo man from personal [facility] with a h/o hypertension and Dementia who pw chest pains * pCXR unremarkable for acute cardiopulmonary abnormality * WBC 13.1 * UA positive for UTI * Hgb 9.0 * D-Dimer 6059.16 * negative Troponin T x 4 * -Chest pains, atypical, costochondritis most likely with rib fractures -Acute COPD exacerbation: start steroids, duonebs and continue Levaquin -Rib fractures most likely due to falls at home: supportative care. -UTI, poa: treat with abx, no urine cultures sent on admission -Acute encephalopathy -ARF, vasomotor nephrology, poa (no prior baseline cr) w/CKD 3: repeat bmp in am -Anemia: repeat levels -DVT prophylaxis: sq heparin -Splenic laceration evaluated by Surgeon, Dr. Laughlin -Disposition: d/c back to personal skilled nursing Not in restraints anymore * CTA chest IMPRESSION: No evidence for pulmonary embolus. Emphysema. Left posterior rib fractures at levels 8-10. Findings suspicious for a splenic laceration. Consider further evaluation of the abdomen and pelvis. Disposition: [id number] HOME UNDER HOME [facility] Time spent for discharge: 38 minutes Core Measure Documentation - Palliative Care Palliative Care/ Comfort Measures: Not Applicable - Core Measures Any of the following diagnoses?: none - VTE Discharge Requirements Deep Vein Thrombosis/Pulmonary Embolism Present on Admission: No Has pt received <5 days of overlap therapy or INR<2.0: No Anticoagulant overlap therapy prescribed at discharge: No Contraindication No Overlap Therapy order at DC: Not Indicated Exam - Physical Exam Narrative exam: GEN: thin frail NAD, Awake, Alert, Orientated x2 HEENT: NCAT, EOMI, PERRL, OP Clear NECK: supple, no adenopathy, no thyromegaly, no JVD CVS/HEART: RRR, normal S1S2, pulses present bilaterally CHEST/LUNGS: bilateral wheezing, Symmetrical chest expansion, good air entry bilaterally GI/Abdomen: soft, NTND, good bowel sounds, no guarding or rebound /Bladder: no suprapubic tenderness, no CVA or paraspinal tenderness EXT/Skin: no c/c/e, no obvious rash MSK: FROM x 4 Neuro: CN 2-12 grossly intact, no new focal deficits Psych: calm but confused - Constitutional Vitals: Temp Pulse Resp BP Pulse Ox 97.7 F 64 18 102/55 90 09/24/17 12:11 09/24/17 12:11 09/24/17 12:11 09/24/17 12:11 09/24/17 12:11 Plan Activity: up only with assistance, fall precautions, other (aspiration precaution, head of bed at 45 degree angle at all times, no strenous activity) Diet: low salt, diabetic Special Instructions: record daily BP diary, record blood sugar diary (three times a day with meals), home hospice Follow up with: PRIMARY CARE, [Primary Care Provider] - 3-5 Days NEHAL LAUGHLIN MD [Staff Physician] - 7 Days HEATHER SCHMIDT MD [Staff Physician] - 7 Days LORRI SINHA MD [Staff Physician] - 7 Days Prescriptions: Acetaminophen [Acetaminophen TAB] 650 mg PO Q4H PRN #30 tablet PRN Reason: Pain MILD(1-3)/Fever >100.5/[place] ALBUTEROL NEB's [Proventil 0.083% NEBS] 2.5 mg IH Q3HRT PRN #30 nebu PRN Reason: Shortness Of Breath Ipratropium/Albuterol Sulfate [DUONEB *Not for PRN Use*] 1 ampul IH DAILY #30 ampul.neb Levofloxacin [Levaquin TAB] 500 mg PO Q24HR #5 tablet predniSONE [Deltasone] 1 dose PO QDAY 12 Days tab
--- NOTE | 2017-09-24 13:34 | Consultation ---
History of Present Illness Consult date: 09/24/17 Requesting physician: YAHIR LANTIGUA Reason for consult: dyspnea History of present illness: 87 y/o male who [facility] admitted with dyspnea. CTA negative for PE but shows rib fractures and emphyesema. Pulmonary consulted for shortness of breath. Resolved now and patient has a discharge order in place. Past History Past Medical History: COPD (or some form of obstructive lung disease) Medications and Allergies Allergies Allergy/AdvReac Type Severity Reaction Status Date / Time Penicillins Allergy Itching Verified 11/07/13 00:39 Home Medications Medication Instructions Recorded Confirmed Last Taken Type Albuterol Sulfate [Ventolin HFA] 2 puff IH PRN PRN 09/20/17 09/20/17 Unknown History Ergocalciferol [Vitamin D2] 1 cap PO 2XW 09/20/17 09/20/17 Unknown History Testosterone [Androderm] 1 each TD DAILY 09/20/17 09/20/17 Unknown History Tiotropium Br/Olodaterol HCl 1 puff IH DAILY 09/20/17 09/20/17 Unknown History [Stiolto Respimat Inhal [place]] ALBUTEROL NEB's [Proventil 0.083% 2.5 mg IH Q3HRT PRN #30 nebu 09/24/17 Unknown Rx NEBS] Acetaminophen [Acetaminophen TAB] 650 mg PO Q4H PRN #30 tablet 09/24/17 Unknown Rx Donepezil [Aricept] 5 mg PO DAILY #30 09/24/17 09/20/17 Unknown Rx Ipratropium/Albuterol Sulfate 1 ampul IH DAILY #30 ampul.neb 09/24/17 Unknown Rx [DUONEB *Not for PRN Use*] Levofloxacin [Levaquin TAB] 500 mg PO Q24HR #5 tablet 09/24/17 Unknown Rx Mirtazapine [Remeron] 30 mg PO QHS PRN #30 tablet 09/24/17 Unknown Rx predniSONE [Deltasone] 1 dose PO QDAY 12 Days tab 09/24/17 Unknown Rx Active Meds: Active Medications Acetaminophen (Tylenol) 650 mg PO Q4H PRN PRN Reason: Pain MILD(1-3)/Fever >100.5/[place] Last Admin: 09/23/17 21:58 Dose: 650 mg Albuterol (Proventil) 2.5 mg IH Q3HRT PRN PRN Reason: Shortness Of Breath Last Admin: 09/23/17 14:07 Dose: 2.5 mg Albuterol/Ipratropium (Duoneb *Not For Prn Use*) 1 ampul IH TIDRT [facility] Last Admin: 09/24/17 13:26 Dose: 1 ampul Donepezil HCl (Aricept) 5 mg PO DAILY [facility] Last Admin: 09/24/17 10:21 Dose: Not Given Heparin Sodium (Porcine) (Heparin) 5,000 unit SUB-Q Q12HR [facility] Last Admin: 09/24/17 10:21 Dose: Not Given Levofloxacin (Levaquin) 500 mg PO Q24HR [facility] Last Admin: 09/24/17 10:21 Dose: Not Given Mirtazapine (Remeron) 30 mg PO QHS PRN PRN Reason: Sleep Last Admin: 09/23/17 21:58 Dose: 30 mg Ondansetron HCl (Zofran) 4 mg IV Q8H PRN PRN Reason: Nausea And Vomiting Prednisone (Deltasone) 60 mg PO QDAY [facility] Last Admin: 09/24/17 10:21 Dose: Not Given Sodium Chloride (Sodium Chloride Flush Syringe 10 Ml) 10 ml IV BID [facility] Last Admin: 09/23/17 21:59 Dose: 10 ml Sodium Chloride (Sodium Chloride Flush Syringe 10 Ml) 10 ml IV PRN PRN PRN Reason: LINE FLUSH Review of Systems All systems: negative Physical Examination Vital signs: Vital Signs Temp Pulse Resp BP Pulse Ox 98.7 F 72 16 112/63 99 09/20/17 19:50 09/20/17 19:50 09/20/17 19:50 09/20/17 19:50 09/20/17 19:50 General appearance: no acute distress, alert Neck: supple Effort: normal Ascultation: Bilateral: diminished breath sounds Percussion: Right: not dull Tactile fremitus: Right: normal Results - Laboratory Findings CBC and BMP: 09/24/17 05:44 09/24/17 05:44 ABG POC ABG pH 7.457 (7.35-7.45) H 09/23/17 14:06 POC ABG pCO2 34.5 (35-45) L 09/23/17 14:06 POC ABG pO2 86 (80-105) 09/23/17 14:06 POC ABG HCO3 24.3 09/23/17 14:06 POC ABG Total CO2 25 09/23/17 14:06 POC ABG O2 Sat 97 09/23/17 14:06 PT/INR, D-dimer D-Dimer 6059.16 ng/mlDDU (0-234) H 09/21/17 02:12 Abnormal lab findings: Abnormal Labs 09/20/17 09/20/17 09/20/17 20:07 20:07 20:44 WBC 13.9 H RBC 3.01 L Hgb 9.3 L Hct 29.9 L MCV 99 H MCHC 31 L Seg Neuts % (Manual) Lymphocytes % (Manual) 9.0 L Monocytes % (Manual) 12.0 H Eosinophils % (Manual) 6.0 H Seg Neutrophils # Man 9.7 H Monocytes # (Manual) 1.7 H Eosinophils # (Manual) 0.8 H D-Dimer POC ABG pH POC ABG pCO2 Sodium Chloride BUN 31 H Calcium Total Creatine Kinase Urine WBC (Auto) 13.0 H 09/20/17 09/21/17 09/21/17 22:30 02:12 07:14 WBC 13.1 H RBC 2.85 L Hgb 9.0 L Hct 27.0 L MCV 95 H MCHC Seg Neuts % (Manual) 72.0 H Lymphocytes % (Manual) 9.0 L Monocytes % (Manual) 13.0 H Eosinophils % (Manual) Seg Neutrophils # Man 9.4 H Monocytes # (Manual) 1.7 H Eosinophils # (Manual) D-Dimer 6059.16 H POC ABG pH POC ABG pCO2 Sodium Chloride BUN Calcium Total Creatine Kinase 32 L Urine WBC (Auto) 09/21/17 09/21/17 09/22/17 07:14 07:14 07:04 WBC 13.5 H RBC 2.97 L Hgb 9.4 L Hct 28.3 L MCV 95 H MCHC Seg Neuts % (Manual) Lymphocytes % (Manual) Monocytes % (Manual) Eosinophils % (Manual) Seg Neutrophils # Man Monocytes # (Manual) Eosinophils # (Manual) D-Dimer POC ABG pH POC ABG pCO2 Sodium Chloride BUN 26 H Calcium 8.3 L Total Creatine Kinase 40 L Urine WBC (Auto) 07/0409/23/17 09/24/17 07:04 14:06 05:44 WBC 11.2 H RBC 2.86 L Hgb 8.9 L Hct 26.8 L MCV MCHC Seg Neuts % (Manual) Lymphocytes % (Manual) Monocytes % (Manual) Eosinophils % (Manual) Seg Neutrophils # Man Monocytes # (Manual) Eosinophils # (Manual) D-Dimer POC ABG pH 7.457 H POC ABG pCO2 34.5 L Sodium 148 H Chloride 109.2 H BUN 23 H Calcium 8.3 L Total Creatine Kinase Urine WBC (Auto) 09/24/17 05:44 WBC RBC Hgb Hct MCV MCHC Seg Neuts % (Manual) Lymphocytes % (Manual) Monocytes % (Manual) Eosinophils % (Manual) Seg Neutrophils # Man Monocytes # (Manual) Eosinophils # (Manual) D-Dimer POC ABG pH POC ABG pCO2 Sodium Chloride BUN Calcium 8.2 L Total Creatine Kinase Urine WBC (Auto) - Diagnostic Findings Chest x-ray: image reviewed CT scan - chest: image reviewed (emphysema with a right upper lobe smooth lesion , not spiculated, most likely old. This is not mentioned in the radiology report. )
[2017-09-24 16:02] VITALS: BP 115/55
== END 2017-09-24 17:26 | disposition home health service (06) | DRG 205 ==
LOC: ED 19:32 → 4A 22:30 → OBSVTOIN 09-23 10:15
PROVIDERS: ADMIT Internal Medicine; ATTEND Internal Medicine
PROC: 4A033R1 Measurement of Arterial Saturation, Peripheral, Percutaneous Approach (ICD-10-PCS; principal; 2017-09-23)
DX: M94.0 Chondrocostal junction syndrome [Tietze] (principal); G93.40 Encephalopathy, unspecified; S22.49XA Multiple fractures of ribs, unspecified side, initial encounter for closed fracture; J44.1 Chronic obstructive pulmonary disease with (acute) exacerbation; N39.0 Urinary tract infection, site not specified; S36.039A Unspecified laceration of spleen, initial encounter; F03.90 Unspecified dementia, unspecified severity, without behavioral disturbance, psychotic disturbance, mood disturbance, and anxiety; I12.9 Hypertensive chronic kidney disease with stage 1 through stage 4 chronic kidney disease, or unspecified chronic kidney disease; N18.3 Chronic kidney disease, stage 3 (moderate); D64.9 Anemia, unspecified; D72.829 Elevated white blood cell count, unspecified; F32.9 Major depressive disorder, single episode, unspecified; W18.30XA Fall on same level, unspecified, initial encounter; Z88.0 Allergy status to penicillin; Z79.899 Other long term (current) drug therapy; Z82.49 Family history of ischemic heart disease and other diseases of the circulatory system; Y93.89 Activity, other specified; Y92.098 Other place in other non-institutional residence as the place of occurrence of the external cause; Y99.8 Other external cause status
CPT/HCPCS: 36415; 36600; 71045; 71275; 80048; 81001; 82550; 82553; 82803; 84484; 85007; 85025; 85027; 85379; 93005; 93010; 94640; 94760; G0378; G8996-GN; G8997-GN; J1644; J1650; J1956; J2060; J7512; Q9967

== ENCOUNTER 2017-09-30 11:38 | Emergency (ER) | payer MEDICARE ==
[2017-09-30] MEDS ORDERED: SUBLIMAZE IV ONE (12:26)
[2017-09-30] MEDS ORDERED: NACL 0.9% 500 ML 500 ML IV ONE (12:26)
[2017-09-30] MEDS ORDERED: BOOSTRIX IM ONE (12:28)
[2017-09-30] MEDS ORDERED: XYLOCAINE 2%/ EPI 1:200,000 INFILTRATI ONE (12:28)
[2017-09-30] MEDS ORDERED: NACL 0.9% IR ONE (12:28)
--- NOTE | 2017-09-30 12:30 | Emergency Department Report ---
<KULDEEP HE - Last Filed: 09/30/17 15:50> ED General Adult HPI - General Chief complaint: Fall Stated complaint: LACERATION Time Seen by Provider: 09/30/17 12:15 Source: EMS (ems notes not available at time of chart dictation), RN notes reviewed, old records reviewed Mode of arrival: Stretcher Limitations: Physical Limitation, Other (patient is demented, patient is a poor historian) - History of Present Illness Initial comments: This is an 87-year-old male. The patient is unknown to this provider previously. Has a past medical history of hypertension, dementia, recently admitted to this hospital for possible splenic laceration, and left posterior rib fractures at levels 8, 9, 10. The patient was seen and evaluated by general surgery for the possible splenic laceration and they eventually cleared him for discharge from a surgical perspective. He presents to the ER today for fall. The patient is demented and cannot describe how he fell. He has a large left posterior, medial forearm laceration. It is unknown when his last tetanus vaccination is. The patient cannot describe the nature of his fall, he cannot describe the nature of his pain, and he cannot describe exacerbating or relieving factors. Patient recently admitted to this hospital, and was cleared by cardiology, and was also thigh with by pulmonology. Specifically, cardiology did not recommend further ischemic cardiac workup. -: unknown (as per history of present illness) Location: left, upper extremity Radiation: other (as per history of present illness) Quality: other (as per history of present illness) Consistency: other (as per history of present illness) Improves with: other (as per history of present illness) Worsens with: other (as per history of present illness) Associated Symptoms: other (as per history of present illness) - Related Data Home Medications Medication Instructions Recorded Confirmed Last Taken Albuterol Sulfate [Ventolin HFA] 2 puff IH PRN PRN 09/20/17 09/20/17 Unknown Ergocalciferol [Vitamin D2] 1 cap PO 2XW 09/20/17 09/20/17 Unknown Testosterone [Androderm] 1 each TD DAILY 09/20/17 09/20/17 Unknown Tiotropium Br/Olodaterol HCl 1 puff IH DAILY 09/20/17 09/20/17 Unknown [Stiolto Respimat Inhal [place]] Previous Rx's Medication Instructions Recorded Last Taken Type ALBUTEROL NEB's [Proventil 0.083% 2.5 mg IH Q3HRT PRN #30 nebu 09/24/17 Unknown Rx NEBS] Acetaminophen [Acetaminophen TAB] 650 mg PO Q4H PRN #30 tablet 09/24/17 Unknown Rx Donepezil [Aricept] 5 mg PO DAILY #30 09/24/17 Unknown Rx Ipratropium/Albuterol Sulfate 1 ampul IH DAILY #30 ampul.neb 09/24/17 Unknown Rx [DUONEB *Not for PRN Use*] Levofloxacin [Levaquin TAB] 500 mg PO Q24HR #5 tablet 09/24/17 Unknown Rx Mirtazapine [Remeron] 30 mg PO QHS PRN #30 tablet 09/24/17 Unknown Rx predniSONE [Deltasone] 1 dose PO QDAY 12 Days tab 09/24/17 Unknown Rx Allergies Allergy/AdvReac Type Severity Reaction Status Date / Time haloperidol [From Haldol] Allergy Unknown Verified 09/30/17 12:34 Penicillins Allergy Itching Verified 11/07/13 00:39 shellfish derived Allergy Unknown Verified 09/30/17 12:34 ED Review of Systems ROS: Stated complaint: LACERATION Other details as noted in HPI Comment: Unobtainable due to pts medical conditions ED Past Medical Hx - Past Medical History Hx Psychiatric Treatment: Yes (Depression) Hx COPD: Yes Hx Dementia: Yes - Surgical History Additional Surgical History: Back surgery in 2008 - Social History Smoking Status: Unknown if ever smoked - Medications Home Medications: Home Medications Medication Instructions Recorded Confirmed Last Taken Type Albuterol Sulfate [Ventolin HFA] 2 puff IH PRN PRN 09/20/17 09/20/17 Unknown History Ergocalciferol [Vitamin D2] 1 cap PO 2XW 09/20/17 09/20/17 Unknown History Testosterone [Androderm] 1 each TD DAILY 09/20/17 09/20/17 Unknown History Tiotropium Br/Olodaterol HCl 1 puff IH DAILY 09/20/17 09/20/17 Unknown History [Stiolto Respimat Inhal [place]] ALBUTEROL NEB's [Proventil 0.083% 2.5 mg IH Q3HRT PRN #30 nebu 09/24/17 Unknown Rx NEBS] Acetaminophen [Acetaminophen TAB] 650 mg PO Q4H PRN #30 tablet 09/24/17 Unknown Rx Donepezil [Aricept] 5 mg PO DAILY #30 09/24/17 09/20/17 Unknown Rx Ipratropium/Albuterol Sulfate 1 ampul IH DAILY #30 ampul.neb 09/24/17 Unknown Rx [DUONEB *Not for PRN Use*] Levofloxacin [Levaquin TAB] 500 mg PO Q24HR #5 tablet 09/24/17 Unknown Rx Mirtazapine [Remeron] 30 mg PO QHS PRN #30 tablet 09/24/17 Unknown Rx predniSONE [Deltasone] 1 dose PO QDAY 12 Days tab 09/24/17 Unknown Rx ED Physical Exam - General Limitations: Physical Limitation, Other (patient is demented. Patient is a poor historian) General appearance: alert, in distress - Head Head exam: Present: atraumatic, normocephalic - Eye Eye exam: Present: normal appearance. Absent: nystagmus - ENT ENT exam: Present: mucous membranes dry - Neck Neck exam: Present: normal inspection, full ROM. Absent: tenderness, meningismus - Respiratory Respiratory exam: Present: normal lung sounds bilaterally. Absent: respiratory distress, chest wall tenderness - Cardiovascular Cardiovascular Exam: Present: regular rate, normal rhythm, normal heart sounds. Absent: bradycardia, tachycardia, irregular rhythm, systolic murmur, diastolic murmur, rubs, gallop - GI/Abdominal GI/Abdominal exam: Present: soft, normal bowel sounds. Absent: distended, tenderness, guarding, rebound, rigid, pulsatile mass - Rectal Rectal exam: Present: deferred - Extremities Exam Extremities exam: Present: normal inspection, full ROM, normal capillary refill , other (there is a large 10 cm laceration noted on the medial posterior aspect of the left forearm. Muscle tissue is exposed. Patient is demented, and cannot cooperate with a sensory or detailed tendon examination. He withdraws to pain, and is noted to be moving 4 extremities spontaneously and forcefully. He also was noted to be making a fist in his bilateral upper extremities. 2+ pulses noted in the bilateral upper, lower extremities. Compartments soft.). Absent: tenderness, pedal edema, joint swelling, calf tenderness - Back Exam Back exam: Present: normal inspection, full ROM. Absent: paraspinal tenderness , vertebral tenderness - Neurological Exam Neurological exam: Present: alert, other (unable to assess remainder of neurologic examination secondary to patient's dementia and lack of ability to cooperate). Absent: motor sensory deficit (5 out of 5 strength upper, lower extremities. Sensation intact to pinprick, pain in bilateral upper, lower extremities. No obvious facial droop.) - Psychiatric Psychiatric exam: Present: agitated - Skin Skin exam: Present: warm, dry, intact, normal color, other (laceration noted to the left lateral posterior forearm) ED Course Vital Signs 09/30/17 09/30/17 09/30/17 12:00 13:01 14:01 Temperature 98.1 F Pulse Rate 72 78 65 Respiratory 23 18 14 Rate Blood Pressure 109/55 112/59 112/59 Blood Pressure 109/55 [Left] O2 Sat by Pulse 94 95 100 Oximetry 09/30/17 15:00 Temperature Pulse Rate 62 Respiratory 18 Rate Blood Pressure 95/50 Blood Pressure [Left] O2 Sat by Pulse 100 Oximetry - Reevaluation(s) Reevaluation #1: 09/30/17 14:04 Differential diagnosis, including but not limited to: Intracranial injury, cervical spine injury, pneumonia, urinary tract infection, debilitated, recurrent falls Assessment and plan: 87-year-old male with recurrent fall and large left forearm laceration. He is moving 4 extremities spontaneously but is a poor historian. We will obtain CT scan of his brain and cervical spine. Given his recent complex findings on CT scan at this hospital, we will repeat a CT scan of his chest, and also obtain CT scan of his abdomen, pelvis. Attempted to contact family and next of kin as listed on his paperwork, however nobody answered that could give consent. The caregiver from the personal fpc did give consent, and we will also administrative consent the patient for CT scan. EKG is pending at this time. Urinalysis is pending at this time. Laceration will be repaired by the physician email marketing assistant Reevaluation #2: 09/30/17 15:51 CT scan of the abdomen and pelvis demonstrates the following findings: 1. Grade 3 splenic laceration with subcapsular hematoma and parenchyma laceration. 2. Grade 2 liver laceration/subcapsular hematoma. 3. Focus of hemorrhage adjacent to greater curvature of the stomach. Cannot exclude gastric injury. 4. Moderate volume of hemorrhage within the pelvis. 5. Acute left 7th through 10th rib fractures. 6. Nonspecific left renal lesion should be further characterized with a dedicated renal CT or MRI. 7. Nonobstructing left renal calculus. 8. Probable small simple right renal cyst. 9. Calcified left posterior pleural plaques. 10. Small probable simple right hepatic cyst. 11. 7 millimeter urinary bladder calcification. Uncertain which injuries are acute and which injuries are subacute. Given the complex nature of patient's traumatic presentation, and lack of, resources available at this hospital, we will transfer the patient to a dedicated trauma center that has definitive resources to manage this patient and the safest and best way possible. The case was presented to the trauma surgeon at [facility], Dr. Isaac Sheppard, who accepted the patient as an ER to ER transfer. Noncontrast CT scan of the brain, cervical spine negative for acute disease. ED Medical Decision Making - Lab Data Result diagrams: 09/30/17 13:14 09/30/17 13:14 Vital Signs 09/30/17 12:00 Temperature 98.1 F Pulse Rate 72 Respiratory 23 Rate Blood Pressure 109/55 Blood Pressure 109/55 [Left] O2 Sat by Pulse 94 Oximetry Lab Results 09/30/17 09/30/17 09/30/17 Range/Units 13:14 13:14 13:14 WBC 12.8 H (4.5-11.0) K/mm3 RBC 2.93 L (3.65-5.03) M/mm3 Hgb 9.0 L (11.8-15.2) gm/dl Hct 27.7 L (35.5-45.6) % MCV 95 H (84-94) fl MCH 31 (28-32) pg MCHC 33 (32-34) % RDW 14.3 (13.2-15.2) % Plt Count 448 H (140-440) K/mm3 PT 14.6 (12.2-14.9) Sec. INR 1.08 (0.87-1.13) APTT 33.0 (24.2-36.6) Sec. Sodium 143 (137-145) mmol/L Potassium 4.3 (3.6-5.0) mmol/L Chloride 105.7 (98-107) mmol/L Carbon Dioxide 25 (22-30) mmol/L Anion Gap 17 mmol/L BUN 27 H (9-20) mg/dL Creatinine 1.3 (0.8-1.5) mg/dL Estimated GFR 52 ml/min BUN/Creatinine Ratio 21 % Glucose 90 (75-100) mg/dL Calcium 8.8 (8.4-10.2) mg/dL Total Bilirubin 0.50 (0.1-1.2) mg/dL AST 14 (5-40) units/L ALT 5 L (7-56) units/L Alkaline Phosphatase 138 H (35-129) units/L Total Creatine Kinase 78 (55-170) units/L Total Protein 6.2 L (6.3-8.2) g/dL Albumin 3.0 L (3.9-5) g/dL Albumin/Globulin Ratio 0.9 % - Radiology Data Radiology results: pending, report reviewed, image reviewed Patient: ESTRELLA ROSARIO MR#: [id number] : 1930 Acct:[id number] Age/Sex: 87 / M ADM Date: 09/30/17 Loc: ED Attending Dr: Ordering Physician: KULDEEP HE MD Date of Service: 09/30/17 Procedure(s): CT abdomen pelvis w con Accession Number(s): [id number] cc: KULDEEP HE MD FINAL REPORT EXAM: CT ABDOMEN PELVIS W CON HISTORY: Trauma fall today. TECHNIQUE: CT of the abdomen and pelvis was performed after the administration of intravenous contrast. Subsequently, CT of the abdomen and pelvis was performed in the delayed phase. Reconstructions were included in the coronal and sagittal planes. PRIORS: None available. FINDINGS: Lower thorax: Bilateral dependent atelectasis is seen. There is a small hiatal hernia. Calcified left posterior pleural plaques are seen. The visualized portions of the heart are normal. Liver: There is a focal area of low attenuation along the periphery of the left hepatic lobe encompassing less than 25 percent of the surface area. Small low-attenuation lesion in the right hepatic lobe is too small to characterize but likely represents a small cyst. No active extravasation of contrast is seen. No intrahepatic biliary duct dilation. Gallbladder/ biliary system: Post cholecystectomy. The common bile duct appears nondilated. Spleen: Multifocal areas of low-attenuation are seen throughout the spleen. One of the sites of intraparenchymal hematoma measures 6.3 centimeters. There is a small amount of subcapsular hematoma encompassing less than 50 percent of the surface area. No extension is seen to the hilar vessels. No active extravasation is seen. Pancreas: No pancreatic lesions are seen. No pancreatic duct dilation. Kidneys: There is a nonspecific ovoid low-attenuation lesion in the interpolar region of the left kidney measuring 2.0 x 1.3 centimeters. There is a nonobstructing calculus in the inferior pole of the left kidney measuring 3 millimeters. Tiny low-attenuation lesion in the inferior pole of the right kidney is too small to characterize but likely represents a small cyst. No evidence of renal laceration. No evidence of renal collecting system injury. Adrenal glands: No adrenal masses. Vasculature: The abdominal and pelvic vasculature is patent without variant anatomy. Atherosclerotic calculi are seen in the abdominal aorta and branch vessels. Lymph nodes: No enlarged lymph nodes are seen in the abdomen or pelvis. Bowel, mesentery, peritoneum: No bowel obstruction. No free air. There is hemorrhage adjacent to greater curvature of the stomach. The appendix was not definitively seen. No colonic diverticulosis. Urinary bladder: A 7 millimeter calculus is seen in the left posterior aspect of the urinary bladder. No wall thickening is seen. No evidence of bladder injury. Pelvis: There is a moderate volume of hemorrhage within the pelvis. Abdominal wall: Small bilateral fat containing inguinal hernias are seen. A spinal stimulator device is present in the subcutaneous tissues of the left lower abdominal quadrant. Bones: A left hip prosthesis is seen. Several bone islands are seen within the sacrum, right iliac bone and L5 vertebral body. There acute left posterior 7th through 10th rib fractures. Degenerative changes are seen in the spine. Prior L5 laminectomy is noted. Old L1 compression fracture is seen. IMPRESSION: 1. Grade 3 splenic laceration with subcapsular hematoma and parenchyma laceration. 2. Grade 2 liver laceration/subcapsular hematoma. 3. Focus of hemorrhage adjacent to greater curvature of the stomach. Cannot exclude gastric injury. 4. Moderate volume of hemorrhage within the pelvis. 5. Acute left 7th through 10th rib fractures. 6. Nonspecific left renal lesion should be further characterized with a dedicated renal CT or MRI. 7. Nonobstructing left renal calculus. 8. Probable small simple right renal cyst. 9. Calcified left posterior pleural plaques. 10. Small probable simple right hepatic cyst. 11. 7 millimeter urinary bladder calcification. Findings were discussed with Dr. He at 12:29 p.m. [facility] on 09/30/2017. Transcribed By: Dictated By: KISHOR POON MD Electronically Authenticated By: KISHOR POON MD Signed Date/Time: 09/30/17 5001 Critical care attestation.: If time is entered above; I have spent that time in minutes in the direct care of this critically ill patient, excluding procedure time. ED Disposition Disposition: [id number]-TRM GEN HOSP IP Is pt being admited?: No Does the pt Need Aspirin: No Condition: Fair Referrals: PRIMARY CARE, [Primary Care Provider] - 3-5 Days <ROSA DOHERTY - Last Filed: 09/30/17 16:57> - Laceration /Wound Repair Left Distal Arm Wound Location: upper extremity (left forearm laceration) Wound Length (cm): 20 Wound's Depth, Shape: linear (linear with some jagged wound edges), irregular Irrigated w/ Saline (ccs): 1,000 Betadine Prep?: Yes Anesthesia: Lidocaine w/ Epi Volume Anesthetic (ccs): 10 Wound Debrided: moderate Wound Repaired With: sutures Suture Size/Type: 3:0, nylon Number of Sutures: 15 Layer Closure?: Yes Deep Layer Suture Size/Type: 4:0, dexon Number Deep Layer Sutures: 8 Sterile Dressing Applied?: Yes Progress: Patient was combative during laceration repair secondary to his dementia. Area cleaned thoroughly with iodine and saline mixture. Large laceration to left lateral forearm extending from below wrist to above elbow. Visible subcutaneous tissue and fascia. Wound irrigated thoroughly. Locally infiltrated with lidocaine with epinephrine all throughout wound edges. 8 deep sutures using 4-0 Vicryl placed. 15 external sutures using 3-0 Prolene placed externally. Wound edges with abrasions slathered with triple antibiotic ointment and covered with gauze afterward. Nurse Katty and Nurse Krupa assisted me by holding patient during procedure as he is combative and demented. After I finished suturing the wound I informed Dr. He of the repair. Pt was then picked up[ by EMT for transport to [facility] Medical Decision Making - Lab Data Result diagrams: 09/30/17 13:14 09/30/17 13:14
[2017-09-30] MEDS ORDERED: XYLOCAINE TOPICAL 2% 30ML TP ONE (12:42)
[2017-09-30] MEDS ORDERED: LET TOPICAL TP ONE ×2 (12:45→12:51)
[2017-09-30] MEDS ORDERED: NACL 0.9% 500 ML IR ONE (12:50)
[2017-09-30] MEDS ORDERED: XYLOCAINE 2%/EPI 1:100,000 INFILTRATI ONE (12:51)
--- NOTE | 2017-09-30 13:15 | XRay Report ---
LEFT FOREARM RADIOGRAPHS INDICATION: Trauma. COMPARISON: None similar. FINDINGS: AP and lateral views demonstrate bony demineralization, though otherwise grossly intact left radius and ulna with grossly preserved elbow and wrist articulations, to the extent assessed. Unremarkable soft tissues. CONCLUSION: No acute left forearm radiographic abnormality. Thank you for the opportunity to participate in this patient's care.
--- NOTE | 2017-09-30 13:16 | XRay Report ---
LEFT ELBOW RADIOGRAPHS INDICATION: Trauma. COMPARISON: None similar. FINDINGS: AP and lateral views demonstrate grossly intact bony articulation, including the radial head. Demineralized bones. Tiny olecranon spur. No abnormal fat pad sign. CONCLUSION: No acute left elbow radiographic abnormality. Thank you for the opportunity to participate in this patient's care.
--- NOTE | 2017-09-30 13:19 | XRay Report ---
LEFT HAND RADIOGRAPHS INDICATION: Trauma. COMPARISON: None similar. FINDINGS: AP and oblique left hand radiographs demonstrate demineralized bones. True lateral view not available. Articulation grossly intact. Mild osteoarthritic changes noted as involving few interphalangeal joints. Unremarkable soft tissues. CONCLUSION: No acute left hand radiographic abnormality with few age-appropriate degenerative changes noted. Thank you for the opportunity to participate in this patient's care.
[2017-09-30 13:49] LABS: Hematocrit 27.7 % (35.5-45.6); Mean Corpuscular HGB Conc 33 % (32-34); Mean Corpuscular Hemoglobin 31 pg (28-32); Mean Corpuscular Volume 95 fl (84-94); Platelet Count 448 K/mm3 (140-440); Red Blood Count 2.93 M/mm3 (3.65-5.03); Red Cell Distribution Width 14.3 % (13.2-15.2)
[2017-09-30 14:00] LABS: INR 1.08 (0.87-1.13)
[2017-09-30] MEDS ORDERED: BETADINE TP SCH (14:00)
[2017-09-30 14:02] LABS: Calcium 8.8 mg/dL (8.4-10.2)
--- NOTE | 2017-09-30 14:56 | Cat Scan Report ---
CT HEAD WITHOUT CONTRAST INDICATION: Trauma. COMPARISON: None similar. FINDINGS: Noncontrast head CT demonstrates symmetric, mild to moderate sulcal and mild ventricular enlargement, overall age-appropriate. Extra-axial CSF spaces asymmetrically larger on the right than left, measuring up to 0.8 cm on axial image 28, series 2, amongst others, possibly representing a subdural hygroma. Moderate periventricular white matter hypodense small vessel ischemic disease, left more than right. Few small lacunar infarcts as approximately 0.5 cm on the right, axial image 36. No definite acute infarct, hemorrhage, mass effect or midline shift. Approximately 1.3 cm partially calcified probable meningioma along the posterior interhemispheric fissure incidentally noted on axial image 54. Grossly normal posterior fossa with preserved basilar cisterns. Atherosclerotic ICA and vertebral artery calcifications. Bilateral cataract surgeries. Rightward nasal septal deviation. Clear imaged paranasal sinuses and mastoid air cells. Moderate right and mild left external auditory canal debris may be directly visualized. Intact calvarium. Mild left frontal/supraorbital soft tissue swelling not excluded. Edentulous jaw with possible maxillary dentures. CONCLUSION: No acute intracranial CT abnormality with age-appropriate atrophy, microvascular changes and few other findings as a small posterior interhemispheric possible meningioma and small right subdural hygroma, amongst others, as detailed above. Thank you for the opportunity to participate in this patient's care.
[2017-09-30 15:09] VITALS: BP 95/50
--- NOTE | 2017-09-30 15:33 | Cat Scan Report ---
CT CERVICAL SPINE WITHOUT CONTRAST INDICATION: Trauma. COMPARISON: None similar. FINDINGS: Noncontrast axial, sagittal and coronal CT reconstructions through the cervical spine demonstrate normal imaged posterior fossa. Clear mastoid air cells. Right more than left external auditory canal debris. Intact craniocervical articulation, dens, anterior and posterior arches of C1, prevertebral soft tissues and airway. Demineralized bones. Normal vertebral body stature and alignment. Mild multilevel degenerative spurring. Right thyroid asymmetrically enlarged with at least 2 hypodense lesions, the smaller approximately 1.5 cm superiorly, axial image 53, series 2 while the larger inferiorly is approximately 3 x 2.2 cm on axial image 64. Bilateral upper lobe emphysematous changes. On the obtained axial images: C2-C3 demonstrates mild, left more than right facet arthropathy. C3-C4 demonstrates mild disc narrowing. Left more than right uncovertebral spurring. Moderate to severe left and mild right facet hypertrophy. Moderate to severe left neural foraminal narrowing, axial image 67, series 3. C4-C5 demonstrates moderate bilateral facet hypertrophy. Mild uncovertebral spurring. Small central disc bulge. Moderate left neural foraminal narrowing as on axial image 81. C5-C6 demonstrates moderate to severe disc narrowing. Mild to moderate bilateral facet hypertrophy. Bilateral uncovertebral spurring. Bilateral neural foraminal narrowing suspected, axial image 93. Assessment of more inferior spinal canal compromised due to streak artifact from shoulder soft tissues. C6-C7 however demonstrates left more than right facet arthropathy. C7-T1 grossly unremarkable. CONCLUSION: No acute cervical spine CT abnormality with multilevel degenerative changes and various other findings, including asymmetrically enlarged right thyroid lobe with hypodense nodules, as described. Please correlate. Thank you for the opportunity to participate in this patient's care.
--- NOTE | 2017-09-30 15:41 | Cat Scan Report ---
FINAL REPORT EXAM: CT ABDOMEN PELVIS W CON HISTORY: Trauma fall today. TECHNIQUE: CT of the abdomen and pelvis was performed after the administration of intravenous contrast. Subsequently, CT of the abdomen and pelvis was performed in the delayed phase. Reconstructions were included in the coronal and sagittal planes. PRIORS: None available. FINDINGS: Lower thorax: Bilateral dependent atelectasis is seen. There is a small hiatal hernia. Calcified left posterior pleural plaques are seen. The visualized portions of the heart are normal. Liver: There is a focal area of low attenuation along the periphery of the left hepatic lobe encompassing less than 25 percent of the surface area. Small low-attenuation lesion in the right hepatic lobe is too small to characterize but likely represents a small cyst. No active extravasation of contrast is seen. No intrahepatic biliary duct dilation. Gallbladder/ biliary system: Post cholecystectomy. The common bile duct appears nondilated. Spleen: Multifocal areas of low-attenuation are seen throughout the spleen. One of the sites of intraparenchymal hematoma measures 6.3 centimeters. There is a small amount of subcapsular hematoma encompassing less than 50 percent of the surface area. No extension is seen to the hilar vessels. No active extravasation is seen. Pancreas: No pancreatic lesions are seen. No pancreatic duct dilation. Kidneys: There is a nonspecific ovoid low-attenuation lesion in the interpolar region of the left kidney measuring 2.0 x 1.3 centimeters. There is a nonobstructing calculus in the inferior pole of the left kidney measuring 3 millimeters. Tiny low-attenuation lesion in the inferior pole of the right kidney is too small to characterize but likely represents a small cyst. No evidence of renal laceration. No evidence of renal collecting system injury. Adrenal glands: No adrenal masses. Vasculature: The abdominal and pelvic vasculature is patent without variant anatomy. Atherosclerotic calculi are seen in the abdominal aorta and branch vessels. Lymph nodes: No enlarged lymph nodes are seen in the abdomen or pelvis. Bowel, mesentery, peritoneum: No bowel obstruction. No free air. There is hemorrhage adjacent to greater curvature of the stomach. The appendix was not definitively seen. No colonic diverticulosis. Urinary bladder: A 7 millimeter calculus is seen in the left posterior aspect of the urinary bladder. No wall thickening is seen. No evidence of bladder injury. Pelvis: There is a moderate volume of hemorrhage within the pelvis. Abdominal wall: Small bilateral fat containing inguinal hernias are seen. A spinal stimulator device is present in the subcutaneous tissues of the left lower abdominal quadrant. Bones: A left hip prosthesis is seen. Several bone islands are seen within the sacrum, right iliac bone and L5 vertebral body. There acute left posterior 7th through 10th rib fractures. Degenerative changes are seen in the spine. Prior L5 laminectomy is noted. Old L1 compression fracture is seen. IMPRESSION: 1. Grade 3 splenic laceration with subcapsular hematoma and parenchyma laceration. 2. Grade 2 liver laceration/subcapsular hematoma. 3. Focus of hemorrhage adjacent to greater curvature of the stomach. Cannot exclude gastric injury. 4. Moderate volume of hemorrhage within the pelvis. 5. Acute left 7th through 10th rib fractures. 6. Nonspecific left renal lesion should be further characterized with a dedicated renal CT or MRI. 7. Nonobstructing left renal calculus. 8. Probable small simple right renal cyst. 9. Calcified left posterior pleural plaques. 10. Small probable simple right hepatic cyst. 11. 7 millimeter urinary bladder calcification. Findings were discussed with Dr. He at 12:29 p.m. PST on 09/30/2017.
[2017-09-30 15:56] LABS: Bilirubin,Urine NEG (Negative); Blood,Urine NEG (Negative); Color,Urine Yellow (Yellow); Mucus,Urine FEW /HPF; Protein,Urine <15 mg/dL mg/dL (Negative); Urobilinogen,Urine < 2.0 mg/dL (<2.0)
[2017-09-30] MEDS ORDERED: TRIPLE ANTIBIOTIC TP ONE (16:36)
--- NOTE | 2017-09-30 16:42 | Cat Scan Report ---
FINAL REPORT PROCEDURE: CT ANGIO CHEST TECHNIQUE: Computerized tomographic angiography of the chest was performed during the IV injection of iodinated nonionic contrast including image processing. The image data was postprocessed using 2-dimensional multiplanar reformatted (MPR) and 3-dimensional (MIP and/or volume rendered) techniques. HISTORY: fall hx of rib fractures COMPARISON: No prior studies are available for comparison. FINDINGS: Pulmonary outflow tract, right and left main pulmonary arteries and their proximal branches: The pulmonary outflow tract right and left main pulmonary arteries are clear. Peripheral branches are suboptimally visualized due to breathing motion artifact however appear clear. No filling defects are seen that would suggest pulmonary embolus. Pericardium: No evidence of pericardial effusion. Thoracic aorta: There is borderline aneurysmal dilatation of the ascending thoracic aorta measuring 4 centimeter x 3.9 centimeter. No dissection seen. Mild atherosclerotic changes are noted. Coronary arteries: Are partially calcified indicating atherosclerotic disease. Mediastinum and hilar regions: Nonspecific subcentimeter lymph nodes are visualized. No pathologically enlarged lymph nodes or masses are identified. Within the right lobe of the thyroid gland there is a 2.3 centimeter heterogeneous subtle low-density nodule. Thyroid gland otherwise unremarkable. Lung [place]: Moderate emphysematous changes are visualized bilaterally. Bands of atelectasis seen in both lungs. Calcified pleural plaquing is visualized bilaterally suggesting prior environmental exposures. There is an oval density in the superior aspect of the right major fissure. This measures 1.6 x 1.7 by 4.0 centimeter. This has low density, approximately 10 Hounsfield units. Given the density and location this may represent a small loculated fluid collection. I cannot exclude a pleural-based mass. This is noncalcified. This is seen on axial image 82 series 3 and sagittal reconstruction image 139 series 602. Upper abdomen: There is heterogeneous enhancement of the spleen. There are linear bands of decreased enhancement seen. I suspect these represent splenic laceration secondary to the previous trauma. No free fluid is seen around the edges of the spleen. Other: There are multiple old healed rib fractures bilaterally. There acute/subacute rib fractures visualized on the left some with callus formation involving the left 3rd, 4th, 5th, 6th, 8th, 9th, 10th ribs laterally and posterior laterally. There is a moderate size Schmorl's node involving the superior endplate of L1. Electronic stimulating leads are seen projecting into the lower thoracic spinal canal posteriorly. IMPRESSION: No evidence of pulmonary embolus. Multiple old healed rib fractures visualized bilaterally. Subacute rib fractures are seen some with early callus formation visualized on the left involving the left 3rd through 10th ribs excluding the left 7th rib. Previous laceration of the spleen suspected. No free fluid is seen in the adjacent to the spleen. Atherosclerosis coronary arteries. Borderline aneurysmal dilatation ascending thoracic aorta. Moderate emphysematous changes visualized bilaterally. Calcified pleural plaquing visualized suggesting prior environmental exposures. Oval low-density nodule right major fissure superiorly. Please see above comments. Given the location and density this may represent a loculated fluid collection. Other masses not entirely excluded. Consider PET scan to evaluate for abnormal metabolic activity versus short-term follow-up, 3 months to evaluate for stability over time. Indeterminate low-density nodule right lobe of the thyroid gland. If clinically indicated thyroid ultrasound could be obtained for further evaluation
== END 2017-09-30 17:07 | disposition short-term general hospital (02) ==
LOC: ED 11:38
DX: S22.42XA Multiple fractures of ribs, left side, initial encounter for closed fracture (principal); S51.812A Laceration without foreign body of left forearm, initial encounter; S36.113A Laceration of liver, unspecified degree, initial encounter; S36.031A Moderate laceration of spleen, initial encounter; J44.9 Chronic obstructive pulmonary disease, unspecified; F03.90 Unspecified dementia, unspecified severity, without behavioral disturbance, psychotic disturbance, mood disturbance, and anxiety; F32.9 Major depressive disorder, single episode, unspecified; N32.89 Other specified disorders of bladder; W18.30XA Fall on same level, unspecified, initial encounter; Y93.89 Activity, other specified; Y92.89 Other specified places as the place of occurrence of the external cause; Y99.8 Other external cause status
CPT/HCPCS: 12035; 36415; 70450; 71275; 72125; 73070; 73090; 73130; 74177; 80053; 81001; 82550; 85027; 85610; 85730; 87086; 90471; 90715; 93005; 93010; 96374; 99285; J3010; J7040; Q9967; A6250

== ENCOUNTER 2018-05-07 09:27 | Emergency (ER) | payer MEDICARE ==
[2018-05-07 10:58] LABS: Hematocrit 42.8 % (35.5-45.6); Hemoglobin 14.8 gm/dl (11.8-15.2); Mean Corpuscular HGB Conc 34 % (32-34); Mean Corpuscular Volume 95 fl (84-94); Platelet Count 179 K/mm3 (140-440); Red Blood Count 4.53 M/mm3 (3.65-5.03)
--- NOTE | 2018-05-07 10:59 | XRay Report ---
FINAL REPORT EXAM: XR CHEST 1V AP HISTORY: cough COMPARISON: Chest radiograph performed on 09/20/2017 TECHNIQUE: Single frontal view of the chest FINDINGS: The cardiomediastinal silhouette is normal in appearance. No focal consolidation. Unchanged pleural plaques. No pleural effusion or pneumothorax. No acute bony or soft tissue abnormality. Epidural catheters are seen in the lower thoracic spine. IMPRESSION: No acute cardiopulmonary disease.
[2018-05-07 11:19] LABS: Alanine Aminotransferase 12 units/L (7-56); BUN/Creatinine Ratio 13; Blood Urea Nitrogen 14 mg/dL (9-20); Calcium 8.9 mg/dL (8.4-10.2); Hemolysis Index 15
--- NOTE | 2018-05-07 11:42 | Cat Scan Report ---
FINAL REPORT EXAM: CT HEAD/BRAIN WO CON HISTORY: AMS COMPARISON: None TECHNIQUE: Multiple contiguous axial images were obtained from the skullbase to the vertex without a dministration of IV contrast. FINDINGS: There is marked cerebral cortical atrophy. There is no parenchymal hemorrhage or extra-axial fluid co llection. There is a calcified extra-axial mass along the posterior falx (series 2, image 28), measur ing approximately 1.3 x 0.9 centimeters. There is no acute territorial infarct. There are patchy area s of decreased attenuation in the subcortical and periventricular white matter, likely due to chronic microvascular ischemic disease. The ventricles are midline. The subarachnoid spaces and basilar cist erns are clear. There is no skull fracture. The paranasal sinuses and mastoid air cells are clear. IMPRESSION: No acute intracranial abnormality. 1.3 x 0.9 centimeter calcified extra-axial mass along the posterior falx that may represent a meningi charity. Marked cerebral cortical atrophy and chronic microvascular ischemic changes in the subcortical and pe riventricular white matter.
--- NOTE | 2018-05-07 12:19 | Emergency Department Report ---
ED General Adult HPI - General Chief complaint: Altered Mental Status Stated complaint: DEMATIA Time Seen by Provider: 05/07/18 10:10 Source: patient, EMS Mode of arrival: Stretcher Limitations: No Limitations - History of Present Illness Initial comments: This is an 88-year-old senior care resident that was sent to this facility for evaluation of a transient alteration of awareness. He has a history of COPD on continuous oxygen. Harmful by the emergency department nurse that the report that she received indicated the following: The patient was found without his oxygen. He was lethargic. [facility] staff found her difficult to arouse him. Was replaced back on his oxygen. Paramedics were summoned. The paramedics arrived the patient was back to his baseline. The nurse states the patient was able to ambulate on his own and sit on the s tretcher for transport to this facility. The patient is coherent enough when he arrives to answer questions. He knows his in the hospital. He has no complaints whatsoever. He does not recall any d ifficulty in the senior care. -: minutes(s) Severity scale (0 -10): 0 - Related Data Home Medications Medication Instructions Recorded Confirmed Last Taken Albuterol Sulfate [Ventolin HFA] 2 puff IH PRN PRN 09/20/17 09/20/17 Unknown Ergocalciferol [Vitamin D2] 1 cap PO 2XW 09/20/17 09/20/17 Unknown Testosterone [Androderm] 1 each TD DAILY 09/20/17 09/20/17 Unknown Tiotropium Br/Olodaterol HCl 1 puff IH DAILY 09/20/17 09/20/17 Unknown [Stiolto Respimat Inhal [place]] Previous Rx's Medication Instructions Recorded Last Taken Type ALBUTEROL NEB's [Proventil 0.083% 2.5 mg IH Q3HRT PRN #30 nebu 09/24/17 Unknown Rx NEBS] Acetaminophen [Acetaminophen TAB] 650 mg PO Q4H PRN #30 tablet 09/24/17 Unknown Rx Donepezil [Aricept] 5 mg PO DAILY #30 09/24/17 Unknown Rx Ipratropium/Albuterol Sulfate 1 ampul IH DAILY #30 ampul.neb 09/24/17 Unknown Rx [DUONEB *Not for PRN Use*] Mirtazapine [Remeron] 30 mg PO QHS PRN #30 tablet 09/24/17 Unknown Rx levoFLOXacin [Levaquin TAB] 500 mg PO Q24HR #5 tablet 09/24/17 Unknown Rx predniSONE [Deltasone] 1 dose PO QDAY 12 Days tab 09/24/17 Unknown Rx Allergies Allergy/AdvReac Type Severity Reaction Status Date / Time haloperidol [From Haldol] Allergy Unknown Verified 09/30/17 12:34 Penicillins Allergy Itching Verified 11/07/13 00:39 shellfish derived Allergy Unknown Verified 09/30/17 12:34 ED Review of Systems ROS: Stated complaint: DEMATIA Other details as noted in HPI Comment: Unobtainable due to pts medical conditions (Limited secondary to dementia. However the patient has no complaints.) ED Past Medical Hx - Past Medical History Hx Psychiatric Treatment: Yes (Depression) Hx COPD: Yes Hx Dementia: Yes - Surgical History Additional Surgical History: Back surgery in 2008 - Social History Smoking Status: Former Smoker Substance Use Type: None - Medications Home Medications: Home Medications Medication Instructions Recorded Confirmed Last Taken Type Albuterol Sulfate [Ventolin HFA] 2 puff IH PRN PRN 09/20/17 09/20/17 Unknown History Ergocalciferol [Vitamin D2] 1 cap PO 2XW 09/20/17 09/20/17 Unknown History Testosterone [Androderm] 1 each TD DAILY 09/20/17 09/20/17 Unknown History Tiotropium Br/Olodaterol HCl 1 puff IH DAILY 09/20/17 09/20/17 Unknown History [Stiolto Respimat Inhal [place]] ALBUTEROL NEB's [Proventil 0.083% 2.5 mg IH Q3HRT PRN #30 nebu 09/24/17 Unknown Rx NEBS] Acetaminophen [Acetaminophen TAB] 650 mg PO Q4H PRN #30 tablet 09/24/17 Unknown Rx Donepezil [Aricept] 5 mg PO DAILY #30 09/24/17 09/20/17 Unknown Rx Ipratropium/Albuterol Sulfate 1 ampul IH DAILY #30 ampul.neb 09/24/17 Unknown Rx [DUONEB *Not for PRN Use*] Mirtazapine [Remeron] 30 mg PO QHS PRN #30 tablet 09/24/17 Unknown Rx levoFLOXacin [Levaquin TAB] 500 mg PO Q24HR #5 tablet 09/24/17 Unknown Rx predniSONE [Deltasone] 1 dose PO QDAY 12 Days tab 09/24/17 Unknown Rx ED Physical Exam - General Limitations: No Limitations General appearance: alert, in no apparent distress - Head Head exam: Present: atraumatic, normocephalic - Eye Eye exam: Present: normal appearance, PERRL, EOMI. Absent: scleral icterus - ENT ENT exam: Present: mucous membranes moist - Neck Neck exam: Present: normal inspection - Respiratory Respiratory exam: Present: normal lung sounds bilaterally. Absent: respiratory distress - Cardiovascular Cardiovascular Exam: Present: regular rate, normal rhythm. Absent: systolic murmur, diastolic murmur, rubs, gallop - GI/Abdominal GI/Abdominal exam: Present: soft, normal bowel sounds. Absent: distended, tenderness, guarding, rebound - Rectal Rectal exam: Present: deferred - Extremities Exam Extremities exam: Present: normal inspection - Back Exam Back exam: Present: normal inspection - Neurological Exam Neurological exam: Present: alert, oriented X3 (patient had some trouble with year. However he was oriented well to context and his name.), CN II-XII intact (as tested). Absent: motor sensory deficit - Psychiatric Psychiatric exam: Present: normal affect, normal mood - Skin Skin exam: Present: warm, dry, intact, normal color. Absent: rash ED Course Vital Signs 05/07/18 09:53 Temperature 97.3 F L Pulse Rate 56 L Respiratory 18 Rate Blood Pressure 164/77 [Left] O2 Sat by Pulse 99 Oximetry - Reevaluation(s) Reevaluation #1: The patient underwent an extensive workup. There are no significantly abnormal findings. Arterial blood gas did not show the presence of hypercapnia. Thus it is deemed that the patient probably had an hypoxic episode causing his transient alteration of awareness. He is appropriate for return to the senior care. 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 pH POC ABG pCO2 POC ABG pO2 POC ABG HCO3 POC ABG Total CO2 POC ABG O2 Sat POC ABG Base Excess FiO2 Sodium 144 Potassium 4.4 Chloride 107.7 H Carbon Dioxide 24 Anion Gap 17 BUN 14 Creatinine 1.1 Estimated GFR > 60 BUN/Creatinine Ratio 13 Glucose 77 Calcium 8.9 Magnesium Total Bilirubin 0.90 AST 20 ALT 12 Alkaline Phosphatase 59 Ammonia NT-Pro-B Natriuret Pep Total Protein 6.7 Albumin 4.0 Albumin/Globulin Ratio 1.5 TSH 2.490 05/07/18 05/07/18 05/07/18 10:34 10:34 11:52 WBC RBC Hgb Hct MCV MCH MCHC RDW Plt Count [place] % (Auto) POC ABG pH 7.353 POC ABG pCO2 41.4 POC ABG pO2 121 H POC ABG HCO3 23.0 POC ABG Total CO2 24 POC ABG O2 Sat 99 POC ABG Base Excess -3 FiO2 28 Sodium Potassium Chloride Carbon Dioxide Anion Gap BUN Creatinine Estimated GFR BUN/Creatinine Ratio Glucose Calcium Magnesium 2.00 Total Bilirubin AST ALT Alkaline Phosphatase Ammonia 35.0 NT-Pro-B Natriuret Pep 219.6 Total Protein Albumin Albumin/Globulin Ratio TSH - EKG Data EKG shows normal: sinus rhythm (first degree AV block), axis, intervals, QRS complexes, ST-T waves Rate: bradycardia - EKG Data Interpretation: no acute changes Critical care attestation.: If time is entered above; I have spent that time in minutes in the direct care of this critically ill patient, excluding procedure time. ED Disposition Clinical Impression: Hypoxia, Transient alteration of awareness Disposition: DC- TO HOME OR SELFCARE Is pt being admited?: No Does the pt Need Aspirin: No Condition: Stable Instructions: Hypoxia (ED), Altered Mental Status (ED) Additional Instructions: Maintain the patient's supplemental oxygen. His testing today was within acceptable limits. Return him to the emergency department for any acute change or problem. Follow-up with usual responsible physicians. Referrals: SARAH LEPE MD [Primary Care Provider] - 3-5 Days Time of Disposition: 12:22
[2018-05-07 13:05] LABS: Anisocytosis 1+; Band Neutrophils # (Manual) 0.1 K/mm3; Basophils % (Manual) 0 % (0.0-1.8); Platelet Estimate Consistent w Auto; Total Cells Counted 100
[2018-05-07 14:48] VITALS: BP 130/76
== END 2018-05-07 14:59 | disposition home or self-care (01) ==
LOC: ED 09:27
DX: R09.02 Hypoxemia (principal); R41.82 Altered mental status, unspecified; F32.9 Major depressive disorder, single episode, unspecified; J44.9 Chronic obstructive pulmonary disease, unspecified; F03.90 Unspecified dementia, unspecified severity, without behavioral disturbance, psychotic disturbance, mood disturbance, and anxiety; Z87.891 Personal history of nicotine dependence; Z88.0 Allergy status to penicillin; Z91.013 Allergy to seafood
CPT/HCPCS: 36415; 70450; 71045; 80053; 82140; 82803; 82962; 83735; 83880; 84443; 85007; 85025; 93005; 93010

== ENCOUNTER 2020-06-07 08:11 | Inpatient (IN) | payer MEDICARE ==
--- NOTE | 2020-06-07 08:29 | Emergency Department Report ---
ED Altered Mental Status HPI - General Stated Complaint: AMS Time Seen by Provider: 06/07/20 08:23 - History of Present Illness Initial Comments: 89-year-old male with history of COPD, dementia, depression, presents to ED with altered mental status. Patient lives in a personal longterm. His demand inspector found in the bathroom with decreased responsiveness. EMS was called. They report patient had pinpoint pupils arrived. Dental Sales Representative denies giving patient any narcotic medications or patient being on any narcotic medications. Narcan 2 mg IV was given. Afterwards, EMS reports patient much more responsive. States he was able to stand up and walk to the ambulance. They report history of COPD, however patient is not on home O2. They report room air sats were 96%. Patient was placed on 2 L nasal cannula secondary to PVCs on monitor. Patient is oriented to self and place. Has no complaints at this time. MD Complaint: altered mental status -: This morning Severity: moderate Context: unknown Treatments Prior to Arrival: IV fluid, oxygen - Related Data Home Medications Medication Instructions Recorded Confirmed Last Taken Albuterol Sulfate [Ventolin HFA] 2 puff IH PRN PRN 09/20/17 09/20/17 Unknown Ergocalciferol [Vitamin D2] 1 cap PO 2XW 09/20/17 09/20/17 Unknown Testosterone [Androderm] 1 each TD DAILY 09/20/17 09/20/17 Unknown Tiotropium Br/Olodaterol HCl 1 puff IH DAILY 09/20/17 09/20/17 Unknown [Stiolto Respimat Inhal [place]] Previous Rx's Medication Instructions Recorded Last Taken Type ALBUTEROL NEB's [Proventil 0.083% 2.5 mg IH Q3HRT PRN #30 nebu 09/24/17 Unknown Rx NEBS] Acetaminophen [Acetaminophen TAB] 650 mg PO Q4H PRN #30 tablet 09/24/17 Unknown Rx Ipratropium/Albuterol Sulfate 1 ampul IH DAILY #30 ampul.neb 09/24/17 Unknown Rx [DUONEB *Not for PRN Use*] Mirtazapine [Remeron 30mg TAB] 30 mg PO QHS PRN #30 tablet 09/24/17 Unknown Rx donepeziL [Aricept] 5 mg PO DAILY #30 09/24/17 Unknown Rx levoFLOXacin [Levaquin TAB] 500 mg PO Q24HR #5 tablet 09/24/17 Unknown Rx predniSONE 1 dose PO QDAY 12 Days tab 09/24/17 Unknown Rx Famotidine [Pepcid] 40 mg PO QHS #10 tablet 07/21/18 Unknown Rx diphenhydrAMINE [Benadryl CAP] 25 mg PO Q6HR PRN #12 capsule 07/21/18 Unknown Rx Allergies Allergy/AdvReac Type Severity Reaction Status Date / Time haloperidol [From Haldol] Allergy Unknown Verified 09/30/17 12:34 Penicillins Allergy Itching Verified 11/07/13 00:39 shellfish derived Allergy Unknown Verified 09/30/17 12:34 ED Review of Systems ROS: Stated complaint: AMS Other details as noted in HPI Comment: Unobtainable due to pts medical conditions (hx dementia) ED Past Medical Hx - Past Medical History Hx Psychiatric Treatment: Yes (Depression) Hx COPD: Yes Hx Dementia: Yes - Surgical History Additional Surgical History: Back surgery in 2008 - Social History Smoking Status: Unknown if ever smoked Substance Use Type: None - Medications Home Medications: Home Medications Medication Instructions Recorded Confirmed Last Taken Type Albuterol Sulfate [Ventolin HFA] 2 puff IH PRN PRN 09/20/17 09/20/17 Unknown History Ergocalciferol [Vitamin D2] 1 cap PO 2XW 09/20/17 09/20/17 Unknown History Testosterone [Androderm] 1 each TD DAILY 09/20/17 09/20/17 Unknown History Tiotropium Br/Olodaterol HCl 1 puff IH DAILY 09/20/17 09/20/17 Unknown History [Stiolto Respimat Inhal [place]] ALBUTEROL NEB's [Proventil 0.083% 2.5 mg IH Q3HRT PRN #30 nebu 09/24/17 Unknown Rx NEBS] Acetaminophen [Acetaminophen TAB] 650 mg PO Q4H PRN #30 tablet 09/24/17 Unknown Rx Ipratropium/Albuterol Sulfate 1 ampul IH DAILY #30 ampul.neb 09/24/17 Unknown Rx [DUONEB *Not for PRN Use*] Mirtazapine [Remeron 30mg TAB] 30 mg PO QHS PRN #30 tablet 09/24/17 Unknown Rx donepeziL [Aricept] 5 mg PO DAILY #30 09/24/17 09/20/17 Unknown Rx levoFLOXacin [Levaquin TAB] 500 mg PO Q24HR #5 tablet 09/24/17 Unknown Rx predniSONE 1 dose PO QDAY 12 Days tab 09/24/17 Unknown Rx Famotidine [Pepcid] 40 mg PO QHS #10 tablet 07/21/18 Unknown Rx diphenhydrAMINE [Benadryl CAP] 25 mg PO Q6HR PRN #12 capsule 07/21/18 Unknown Rx ED Physical Exam - General General appearance: alert, in no apparent distress - Head Head exam: Present: atraumatic, normocephalic - Eye Eye exam: Present: normal appearance, PERRL, EOMI - ENT ENT exam: Present: mucous membranes moist - Neck Neck exam: Present: normal inspection - Respiratory Respiratory exam: Present: normal lung sounds bilaterally. Absent: respiratory distress - Cardiovascular Cardiovascular Exam: Present: regular rate, normal rhythm - GI/Abdominal GI/Abdominal exam: Present: soft. Absent: distended, tenderness - Extremities Exam Extremities exam: Present: normal inspection - Neurological Exam Neurological exam: Present: alert. Absent: oriented X3 (oriented x 2) - Psychiatric Psychiatric exam: Present: normal affect, normal mood - Skin Skin exam: Present: warm, dry, intact, normal color ED Course Vital Signs 06/07/20 06/07/20 06/07/20 08:40 08:57 09:45 Temperature 97.5 F L 97.8 F Pulse Rate 64 68 55 L Respiratory 18 20 14 Rate Blood Pressure 132/78 138/73 Blood Pressure 138/72 [Left] O2 Sat by Pulse 92 100 97 Oximetry 06/07/20 06/07/20 10:01 10:15 Temperature Pulse Rate 52 L 46 L Respiratory 15 14 Rate Blood Pressure 138/73 123/67 Blood Pressure [Left] O2 Sat by Pulse 96 Oximetry - Reevaluation(s) Reevaluation #1: 06/07/20 08:38 Spoke with patient's demand inspector, Kelley ([phone]). She states that she heard patient take a bath this morning. Afterwards he has to use the bathroom. She states she sat him on the commode and patient urinated. She states after urinating, patient began shaking all over, and then "went out." States he was unresponsive and without yes or any questions, so she called EMS. She denies any history of seizures that she knows of. She states that patient has history of COPD and wears his oxygen as needed. Patient has not had COVID-19 infection, however he has had first dose of the COVID-19 vaccine. She reports patient's medications as donepezil 10 mg, divalproex 50 mg, mirtazapine 45 mg. - Lab Data Result diagrams: 06/07/20 09:11 06/07/20 09:11 Lab Results 06/07/20 06/07/20 06/07/20 Range/Units 08:30 08:30 09:11 WBC 10.8 (4.5-11.0) K/mm3 RBC 4.19 (3.65-5.03) M/mm3 Hgb 13.9 (11.8-15.2) gm/dl Hct 39.9 (35.5-45.6) % MCV 95 H (84-94) fl MCH 33 H (28-32) pg MCHC 35 H (32-34) % RDW 13.6 (13.2-15.2) % Plt Count 247 (140-440) K/mm3 Lymph % (Auto) 15.4 (13.4-35.0) % [place] % (Auto) 7.4 H (0.0-7.3) % Eos % (Auto) 1.2 (0.0-4.3) % Baso % (Auto) 0.4 (0.0-1.8) % Lymph # (Auto) 1.7 (1.2-5.4) K/mm3 [place] # (Auto) 0.8 (0.0-0.8) K/mm3 Eos # (Auto) 0.1 (0.0-0.4) K/mm3 Baso # (Auto) 0.0 (0.0-0.1) K/mm3 Seg Neutrophils % 75.6 H (40.0-70.0) % Seg Neutrophils # 8.1 H (1.8-7.7) K/mm3 PT (12.2-14.9) Sec. INR (0.87-1.13) APTT (24.2-36.6) Sec. D-Dimer (0-234) ng/mlDDU Sodium (137-145) mmol/L Potassium (3.6-5.0) mmol/L Chloride (98-107) mmol/L Carbon Dioxide (22-30) mmol/L Anion Gap mmol/L BUN (9-20) mg/dL Creatinine (0.8-1.3) mg/dL Estimated GFR ml/min BUN/Creatinine Ratio % Glucose (75-100) mg/dL Calcium (8.4-10.2) mg/dL Total Bilirubin (0.1-1.2) mg/dL Direct Bilirubin (0-0.2) mg/dL Indirect Bilirubin mg/dL AST (5-40) units/L ALT (7-56) units/L Alkaline Phosphatase (35-129) units/L Troponin T (0.00-0.029) ng/mL Total Protein (6.3-8.2) g/dL Albumin (3.9-5) g/dL Albumin/Globulin Ratio % Triglycerides (2-149) mg/dL Cholesterol (50-199) mg/dL LDL Cholesterol Direct (50-130) mg/dL HDL Cholesterol (40-59) mg/dL Cholesterol/HDL Ratio % Urine Color Yellow (Yellow) Urine Turbidity Cloudy (Clear) Urine pH 5.0 (5.0-7.0) Ur Specific [place] 1.017 (1.003-1.030) Urine Protein 100 mg/dl (Negative) mg/dL Urine Glucose (UA) Neg (Negative) mg/dL Urine Ketones Neg (Negative) mg/dL Urine Blood Neg (Negative) Urine Nitrite Neg (Negative) Urine Bilirubin Neg (Negative) Urine Urobilinogen < 2.0 (<2.0) mg/dL Ur Leukocyte Esterase Mod (Negative) Urine WBC (Auto) 179.0 H (0.0-6.0) /HPF Urine RBC (Auto) 13.0 (0.0-6.0) /HPF Urine Mucus Few /HPF Urine Opiates Screen Negative Urine Methadone Screen Negative Ur Barbiturates Screen Negative Ur Phencyclidine Scrn Negative Ur Amphetamines Screen Negative U Benzodiazepines Scrn Negative Urine Cocaine Screen Negative U Marijuana (THC) Screen Negative Drugs of Abuse Note Disclamer 06/07/20 06/07/20 06/07/20 Range/Units 09:11 09:11 09:11 WBC (4.5-11.0) K/mm3 RBC (3.65-5.03) M/mm3 Hgb (11.8-15.2) gm/dl Hct (35.5-45.6) % MCV (84-94) fl MCH (28-32) pg MCHC (32-34) % RDW (13.2-15.2) % Plt Count (140-440) K/mm3 Lymph % (Auto) (13.4-35.0) % [place] % (Auto) (0.0-7.3) % Eos % (Auto) (0.0-4.3) % Baso % (Auto) (0.0-1.8) % Lymph # (Auto) (1.2-5.4) K/mm3 [place] # (Auto) (0.0-0.8) K/mm3 Eos # (Auto) (0.0-0.4) K/mm3 Baso # (Auto) (0.0-0.1) K/mm3 Seg Neutrophils % (40.0-70.0) % Seg Neutrophils # (1.8-7.7) K/mm3 PT 13.4 (12.2-14.9) Sec. INR 1.04 (0.87-1.13) APTT 26.1 (24.2-36.6) Sec. D-Dimer 534.8 H (0-234) ng/mlDDU Sodium 141 (137-145) mmol/L Potassium 4.8 (3.6-5.0) mmol/L Chloride 107.9 H (98-107) mmol/L Carbon Dioxide 20 L (22-30) mmol/L Anion Gap 18 mmol/L BUN 19 (9-20) mg/dL Creatinine 1.2 (0.8-1.3) mg/dL Estimated GFR 57 ml/min BUN/Creatinine Ratio 16 % Glucose 130 H (75-100) mg/dL Calcium 8.5 (8.4-10.2) mg/dL Total Bilirubin 0.40 (0.1-1.2) mg/dL Direct Bilirubin < 0.2 (0-0.2) mg/dL Indirect Bilirubin 0.2 mg/dL AST 19 (5-40) units/L ALT 8 (7-56) units/L Alkaline Phosphatase 82 (35-129) units/L Troponin T 0.067 H (0.00-0.029) ng/mL Total Protein 6.7 (6.3-8.2) g/dL Albumin 3.8 L (3.9-5) g/dL Albumin/Globulin Ratio 1.3 % Triglycerides 79 (2-149) mg/dL Cholesterol 137 (50-199) mg/dL LDL Cholesterol Direct 81 (50-130) mg/dL HDL Cholesterol 51 (40-59) mg/dL Cholesterol/HDL Ratio 2.68 % Urine Color (Yellow) Urine Turbidity (Clear) Urine pH (5.0-7.0) Ur Specific [place] (1.003-1.030) Urine Protein (Negative) mg/dL Urine Glucose (UA) (Negative) mg/dL Urine Ketones (Negative) mg/dL Urine Blood (Negative) Urine Nitrite (Negative) Urine Bilirubin (Negative) Urine Urobilinogen (<2.0) mg/dL Ur Leukocyte Esterase (Negative) Urine WBC (Auto) (0.0-6.0) /HPF Urine RBC (Auto) (0.0-6.0) /HPF Urine Mucus /HPF Urine Opiates Screen Urine Methadone Screen Ur Barbiturates Screen Ur Phencyclidine Scrn Ur Amphetamines Screen U Benzodiazepines Scrn Urine Cocaine Screen U Marijuana (THC) Screen Drugs of Abuse Note - EKG Data -: EKG Interpreted by Me EKG shows normal: sinus rhythm, intervals, ST-T waves Rate: bradycardia (rate 54) When compared to previous EKG there are: changes noted (new RBBB) - Radiology Data Radiology results: report reviewed, image reviewed - Medical Decision Making 89-year-old male presents to ED following seizure vs syncopal episode at personal-longterm. Patient currently awake and alert in ED. History of dementia, so responses are limited. However, he is oriented to self and place. Vital signs are stable. CT head is negative for any acute findings. Chest x- ray is unremarkable. EKG shows right bundle branch block which is new compared to previous EKG. No ST changes noted on EKG. Troponin slightly elevated at 0.06. D-dimer elevated, so CTA chest was performed, which was negative for PE, however does show some coronary atherosclerosis. Patient denies any chest pain at this time. UA shows evidence of UTI. Levaquin given for UTI. Patient will be admitted to hospitalist, Dr Powers, for further management. - Differential Diagnosis syncope, micturition syncope, CVA, seizure, arrythmia Critical care attestation.: If time is entered above; I have spent that time in minutes in the direct care of this critically ill patient, excluding procedure time. ED Disposition Clinical Impression: Syncope, Elevated troponin, UTI (urinary tract infection) Disposition: OP ADMIT IP TO THIS HOSP Is pt being admited?: Yes Condition: Stable Time of Disposition: 11:58
--- NOTE | 2020-06-07 09:22 | XRay Report ---
CHEST 1 VIEW 06/07/2020 8:44 AM INDICATION / CLINICAL INFORMATION: syncope/ seizure. COMPARISON: 07/21/2018 FINDINGS: SUPPORT DEVICES: None. HEART / MEDIASTINUM: Stable. LUNGS / PLEURA: Persistent coarsened interstitial lung markings with right lateral pleural plaque sera cifications are similar. Persistent blunting of costophrenic angles versus scarring is noted. No pneu mothorax. ADDITIONAL FINDINGS: Leads traversing the abdomen and projected over the mediastinum are stable since prior exam. Moderate bilateral glenohumeral arthrosis is similar. IMPRESSION: 1. No acute findings. No significant interval change since 07/21/2018. Signer Name: Efren Tyson MD Signed: 06/07/2020 9:18 AM Workstation Name: [id number]
[2020-06-07 09:24] LABS: Basophils % (Auto) 0.4 % (0.0-1.8); Eosinophils # (Auto) 0.1 K/mm3 (0.0-0.4); Eosinophils % (Auto) 1.2 % (0.0-4.3); Hematocrit 39.9 % (35.5-45.6); Hemoglobin 13.9 gm/dl (11.8-15.2); Lymphocytes # (Auto) 1.7 K/mm3 (1.2-5.4); Lymphocytes % (Auto) 15.4 % (13.4-35.0); Mean Corpuscular HGB Conc 35 % (32-34); Mean Corpuscular Volume 95 fl (84-94); Monocytes # (Auto) 0.8 K/mm3 (0.0-0.8); Monocytes % (Auto) 7.4 % (0.0-7.3); Platelet Count 247 K/mm3 (140-440); Red Blood Count 4.19 M/mm3 (3.65-5.03); Red Cell Distribution Width 13.6 % (13.2-15.2)
[2020-06-07 09:50] LABS: Alanine Aminotransferase 8 units/L (7-56); Albumin 3.8 g/dL (3.9-5); BUN/Creatinine Ratio 16; Bilirubin,Direct < 0.2 mg/dL (0-0.2); Blood Urea Nitrogen 19 mg/dL (9-20); Calcium 8.5 mg/dL (8.4-10.2); Hemolysis Index 20
[2020-06-07 09:54] LABS: Amphetamine Screen,Urine Negative; Benzodiazepines Screen,Urine Negative; Bilirubin,Urine NEG (Negative); Blood,Urine NEG (Negative); Cannabinoid Screen,Urine Negative; Cocaine Screen,Urine Negative; Color,Urine Yellow (Yellow); Methadone Screen,Urine Negative; Mucus,Urine FEW /HPF; Opiate Screen,Urine Negative; Urobilinogen,Urine < 2.0 mg/dL (<2.0)
[2020-06-07 10:00] LABS: INR 1.04 (0.87-1.13)
[2020-06-07 10:01] LABS: Chol/HDL Ratio 2.68 %; HDL Cholesterol 51 mg/dL (40-59); LDL Cholesterol,Direct 81 mg/dL (50-130); Partial Thromboplastin Time 26.1 Sec. (24.2-36.6)
--- NOTE | 2020-06-07 10:02 | Cat Scan Report ---
CT HEAD WITHOUT CONTRAST INDICATION : syncope/ seizure. TECHNIQUE: Axial imaging performed from the skull apex through the skull base without the use of con trast. Sagittal and coronal reformatted images. All CT scans at this location are performed using C T dose reduction for ALARA by means of automated exposure control. COMPARISON: 05/07/2018 FINDINGS: Parenchyma: No acute parenchymal abnormality or hemorrhage is identified. Advanced cortical volume l oss is again noted. Moderate hypoattenuation throughout the right matter is stable and most consisten t with chronic microvascular ischemic changes. A low-density right subdural collection is suspected c onsistent with a chronic subdural hygroma which is also unchanged since the previous exam. Previously described 1.3 cm calcified meningioma along the posterior falx is unchanged. Ventricles: Ventricles are normal in size and appear symmetric. Bones: No acute osseous abnormality. Sinuses: Sinuses and mastoid air cells are clear. Soft tissues: Soft tissues including the orbits appear normal. IMPRESSION: No acute abnormality. Chronic findings as described above which are unchanged since 2018 exam. Signer Name: Stanton Graham Jr, MD Signed: 06/07/2020 9:54 AM Workstation Name: [id number]
--- NOTE | 2020-06-07 11:43 | Cat Scan Report ---
CTA CHEST WITH CONTRAST INDICATION / CLINICAL INFORMATION: Syncope and elevated d-dimer. TECHNIQUE: Axial CT images were obtained through the chest after injection of 100 cc Omnipaque 350 IV contrast. 3 plane MIP and/or 3D reconstructions were produced. All CT scans at this location are per formed using CT dose reduction for ALARA by means of automated exposure control. COMPARISON: 09/30/17. FINDINGS: PULMONARY ARTERIES: Opacification bilaterally without intraluminal filling defect suggest acute PTE. THORACIC AORTA: Mild generalized atherosclerotic change. Mild generalized ectasia of the ascending th oracic aorta without aneurysm or dissection. HEART: Mild aortic and mitral valvular calcification. CORONARY ARTERY CALCIFICATION: Moderate. MEDIASTINUM / TELLO: No significant abnormality. PLEURA: No pleural effusion. No pneumothorax. LUNGS: Confluent changes of centrilobular emphysema. Mild to moderate bibasilar subsegmental atelecta sis/scarring. ADDITIONAL FINDINGS: Enlarged right lobe of the thyroid gland with a low density nodule occupying a l arge portion of the anterior and midportion of the right lobe, measuring at least 3 cm. Nodularity ap pears increased since the prior study. UPPER ABDOMEN: Small hiatal hernia. SKELETAL STRUCTURES: Moderate spurring throughout the thoracic spine. Dorsal column stimulator leads overlying the lower thoracic region. IMPRESSION: 1. No CT evidence for pulmonary embolism. 2. Confluent changes of centrilobular emphysema. Moderate coronary artery calcification. 3. Incidental nodule in the right lobe of the thyroid gland measuring approximately 3 cm. INCIDENTAL THYROID NODULE RECOMMENDATION RECOMMENDATION: Dedicated thyroid ultrasound. Nonpalpable nodules detected on US or other anatomic imaging studies are termed incidentally discover ed nodules or incidentalomas. Nonpalpable nodules have the same risk of malignancy as palpable nodule s with the same size. Generally, only nodules >1 cm should be evaluated, since they have a greater po tential to be clinically significant cancers. (ASHLEY, 2009). Follow up for incidental thyroid nodules <1 cm is not recommended. Diagnostic thyroid ultrasound is recommended only if the patient meets the following criteria: (1) < 35 years of age with normal life expectancy and nodule >= 1 cm. (2) >= 35 years of age with normal life expectancy and nodule >= 1.5 cm. ACR Ultrasound for incidental thyroid nodules: [email or web address] Signer Name: Wicho Arellano MD Signed: 06/07/2020 11:38 AM Workstation Name: [id number]
[2020-06-07] MEDS ORDERED: ASPIRIN 325 MG TAB PO ONE (11:58)
--- NOTE | 2020-06-07 11:58 | History and Physical Report ---
History of Present Illness Chief complaint: He was dazed and confused History of present illness: 89 YO Male Personal Half-Way Resident with Vascular Dementia, Cerebral Atherosclerosis, Depression, COPD, GERD presents to ED for evaluation. Patient is confused with diminished cognition at the time my evaluation is unable to provide history. Patient history taken from ED staff, EMS staff, as well as personal [facility] staff. As per staff the patient "was found in the bathroom unresponsive". EMS was notified and upon arrival the patient was found to be in distress with decreased responsiveness and sluggish pupils. Patient treated with Narcan and subsequently transported to [facility] for further care and evaluation of the aforementioned symptoms. The patient was seen and evaluated in the emergency department. All lab and imaging studies reviewed. Patient was found to have urinary tract infection as well as type II non-ST elevation TN. Patient admitted to telemetry and initiated on chest pain protocol as well as IV antibiotic therapy. No reports of fever, chills, chest pain, palpitation, productive cough, skin rash, recent ill contacts, or known exposure to COVID-19. Prior admission on 09/23/2017 reviewed. All medication listed at time of admission has been reconciled. Advanced care planning conducted in ED. Patient is confused with diminished cognition but has a positive gag reflex and is able to protect his airway without difficulty. Past History Past Medical History: COPD, GERD, other (See HPI) Past Surgical History: Other (Back surgery) Social history: . denies: smoking, alcohol abuse, prescription drug abuse Family history: hypertension Medications and Allergies Allergies Allergy/AdvReac Type Severity Reaction Status Date / Time haloperidol [From Haldol] Allergy Unknown Verified 09/30/17 12:34 Penicillins Allergy Itching Verified 11/07/13 00:39 shellfish derived Allergy Unknown Verified 09/30/17 12:34 Home Medications Medication Instructions Recorded Confirmed Last Taken Type Albuterol Sulfate [Ventolin HFA] 2 puff IH PRN PRN 09/20/17 09/20/17 Unknown History Ergocalciferol [Vitamin D2] 1 cap PO 2XW 09/20/17 09/20/17 Unknown History Testosterone [Androderm] 1 each TD DAILY 09/20/17 09/20/17 Unknown History Tiotropium Br/Olodaterol HCl 1 puff IH DAILY 09/20/17 09/20/17 Unknown History [Stiolto Respimat Inhal [place]] ALBUTEROL NEB's [Proventil 0.083% 2.5 mg IH Q3HRT PRN #30 nebu 09/24/17 Unknown Rx NEBS] Acetaminophen [Acetaminophen TAB] 650 mg PO Q4H PRN #30 tablet 09/24/17 Unknown Rx Ipratropium/Albuterol Sulfate 1 ampul IH DAILY #30 ampul.neb 09/24/17 Unknown Rx [DUONEB *Not for PRN Use*] Mirtazapine [Remeron 30mg TAB] 30 mg PO QHS PRN #30 tablet 09/24/17 Unknown Rx donepeziL [Aricept] 5 mg PO DAILY #30 09/24/17 09/20/17 Unknown Rx levoFLOXacin [Levaquin TAB] 500 mg PO Q24HR #5 tablet 09/24/17 Unknown Rx predniSONE 1 dose PO QDAY 12 Days tab 09/24/17 Unknown Rx Famotidine [Pepcid] 40 mg PO QHS #10 tablet 07/21/18 Unknown Rx diphenhydrAMINE [Benadryl CAP] 25 mg PO Q6HR PRN #12 capsule 07/21/18 Unknown Rx Review of Systems ROS unobtainable: due to mental status Exam - Constitutional Vitals: Temp Pulse Resp BP Pulse Ox 97.8 F 46 L 14 123/67 96 06/07/20 08:57 06/07/20 10:15 06/07/20 10:15 06/07/20 10:15 06/07/20 10:01 General appearance: Present: mild distress - EENT Eyes: Present: PERRL ENT: hearing decreased - Neck Neck: Present: supple, normal ROM - Respiratory Respiratory effort: normal Respiratory: bilateral: CTA - Cardiovascular Heart Sounds: Present: S1 & S2. Absent: rub, click - Extremities Extremities: pulses symmetrical, No edema Peripheral Pulses: within normal limits - Abdominal General gastrointestinal: Present: soft, non-tender, non-distended, normal bowel sounds Male genitourinary: Present: normal - Integumentary Integumentary: Present: clear, warm, dry - Musculoskeletal Musculoskeletal: generalized weakness - Psychiatric Psychiatric: no appropriate mood/affect, no intact judgment & insight, no memory intact - Neurologic Neurologic: CNII-XII intact, no focal deficits, moves all extremities, no gait normal HEART Score - HEART Score Troponin: Troponin T 0.067 ng/mL (0.00-0.029) H 06/07/20 09:11 Results - Labs CBC & Chem 7: 06/07/20 09:11 06/07/20 09:11 Labs: Abnormal lab results 06/07/20 06/07/20 06/07/20 Range/Units 08:30 09:11 09:11 MCV 95 H (84-94) fl MCH 33 H (28-32) pg MCHC 35 H (32-34) % [place] % (Auto) 7.4 H (0.0-7.3) % Seg Neutrophils % 75.6 H (40.0-70.0) % Seg Neutrophils # 8.1 H (1.8-7.7) K/mm3 D-Dimer (0-234) ng/mlDDU Chloride 107.9 H (98-107) mmol/L Carbon Dioxide 20 L (22-30) mmol/L Glucose 130 H (75-100) mg/dL Troponin T 0.067 H (0.00-0.029) ng/mL Albumin 3.8 L (3.9-5) g/dL Urine WBC (Auto) 179.0 H (0.0-6.0) /HPF 06/07/20 Range/Units 09:11 MCV (84-94) fl MCH (28-32) pg MCHC (32-34) % [place] % (Auto) (0.0-7.3) % Seg Neutrophils % (40.0-70.0) % Seg Neutrophils # (1.8-7.7) K/mm3 D-Dimer 534.8 H (0-234) ng/mlDDU Chloride (98-107) mmol/L Carbon Dioxide (22-30) mmol/L Glucose (75-100) mg/dL Troponin T (0.00-0.029) ng/mL Albumin (3.9-5) g/dL Urine WBC (Auto) (0.0-6.0) /HPF Assessment and Plan - Patient Problems (1) NSTEMI (non-ST elevated myocardial infarction) Current Visit: Yes Status: Acute Plan to address problem: Type II NSTEMI: Serial cardiac enzymes, EKG, Echo, cardiology team consulted (2) UTI (urinary tract infection) Current Visit: Yes Status: Acute Qualifiers: Encounter type: initial encounter Plan to address problem: CBC, CMP, urinalysis, IV antibiotic therapy, supportive care. (3) GERD (gastroesophageal reflux disease) Current Visit: Yes Status: Acute Qualifiers: Esophagitis presence: without esophagitis Qualified Code(s): K21.9 - Gastro-esophageal reflux disease without esophagitis Plan to address problem: PPI therapy, supportive care. (4) Vascular dementia Current Visit: Yes Status: Acute Qualifiers: Dementia behavioral disturbance: without behavioral disturbance Qualified Code(s): F01.50 - Vascular dementia without behavioral disturbance Plan to address problem: Verbal prompting, verbal redirection, benzodiazepine therapy as clinically indicated. (5) Cerebral atherosclerosis Current Visit: Yes Status: Acute Plan to address problem: Risk factor reduction, antiplatelet therapy as clinically indicated. (6) DVT prophylaxis Current Visit: Yes Status: Acute Plan to address problem: SCD to bilateral lower extremities while in bed (7) Advance care planning Current Visit: Yes Status: Acute Plan to address problem: Disease education conducted, care plan discussed, prognosis discussed, patient is full code, +30 minutes.
[2020-06-07] MEDS ORDERED: ONDANSETRON 4 MG/2 ML INJ IV PRN (12:03)
[2020-06-07] MEDS ORDERED: ACETAMINOPHEN 325 MG TAB PO PRN ×3 (12:05→12:30)
[2020-06-07] MEDS ORDERED: traMADol 50 MG TAB PO PRN (12:07)
[2020-06-07] MEDS ORDERED: diphenhydrAMINE 25 MG CAP PO PRN (12:09)
[2020-06-07] MEDS ORDERED: ALBUTEROL 2.5 MG/3 ML NEBU IH PRN (12:30)
[2020-06-07] MEDS ORDERED: ERGOCALCIFEROL (VIT D2) 50,000 UNIT CAP PO SCH (13:00)
[2020-06-07] MEDS: ENOXAPARIN 80 MG/0.8 ML INJ SUB-Q SCH ×2 (21:03→21:43)
[2020-06-07] MEDS: FAMOTIDINE 20 MG TAB PO SCH (21:04)
[2020-06-07] MEDS ORDERED: NON-FORMULARY EACH (Famotidine [Pepcid] 40 MG Tablet) PO SCH (22:00)
[2020-06-07] MEDS ORDERED: MIRTAZAPINE 30 MG TAB PO PRN (22:00)
[2020-06-08] MEDS: predniSONE 10 MG TAB PO SCH (09:02)
[2020-06-08] MEDS: ENOXAPARIN 80 MG/0.8 ML INJ SUB-Q SCH ×2 (09:02→21:02)
[2020-06-08] MEDS: DONEPEZIL 5 MG TAB PO SCH (09:02)
[2020-06-08] MEDS ORDERED: TESTOSTERONE TD SCH (10:00)
[2020-06-08] MEDS ORDERED: NON-FORMULARY EACH (Tiotropium Br/Olodaterol Hcl [Stiolto Respimat Inhal Spray] 4 GM Mist. IH SCH (10:00)
--- NOTE | 2020-06-08 10:20 | Consultation ---
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 EMS was called patient had a pulse but was not responsive. Brought to the emergency room patient had initial troponin elevation had a CT of the head negative for acute bleed. And CT of the chest was negative for pulmonary embolism. Troponin levels have risen. Baseline EKG sinus rhythm with right bundle branch block. Has normal LV function on echocardiogram without significant regurgitation. Patient laying in bed denies any symptomology pleasantly demented. Past History Past Medical History: COPD, GERD, other (See HPI) Past Surgical History: Other (Back surgery) Social history: . denies: smoking, alcohol abuse, prescription drug abuse Family history: hypertension Medications and Allergies Allergies Allergy/AdvReac Type Severity Reaction Status Date / Time haloperidol [From Haldol] Allergy Unknown Verified 09/30/17 12:34 Penicillins Allergy Itching Verified 11/07/13 00:39 shellfish derived Allergy Unknown Verified 09/30/17 12:34 Home Medications Medication Instructions Recorded Confirmed Last Taken Type Albuterol Sulfate [Ventolin HFA] 2 puff IH PRN PRN 09/20/17 09/20/17 Unknown H istory Ergocalciferol [Vitamin D2] 1 cap PO 2XW 09/20/17 09/20/17 Unknown History Testosterone [Androderm] 1 each TD DAILY 09/20/17 09/20/17 Unknown History Tiotropium Br/Olodaterol HCl 1 puff IH DAILY 09/20/17 09/20/17 Unknown History [Stiolto Respimat Inhal [place]] ALBUTEROL NEB's [Proventil 0.083% 2.5 mg IH Q3HRT PRN #30 nebu 09/24/17 Unknown Rx NEBS] Acetaminophen [Acetaminophen TAB] 650 mg PO Q4H PRN #30 tablet 09/24/17 Unknown Rx Ipratropium/Albuterol Sulfate 1 ampul IH DAILY #30 ampul.neb 09/24/17 Unknown Rx [DUONEB *Not for PRN Use*] Mirtazapine [Remeron 30mg TAB] 30 mg PO QHS PRN #30 tablet 09/24/17 Unknown Rx donepeziL [Aricept] 5 mg PO DAILY #30 09/24/17 09/20/17 Unknown Rx levoFLOXacin [Levaquin TAB] 500 mg PO Q24HR #5 tablet 09/24/17 Unknown Rx predniSONE 1 dose PO QDAY 12 Days tab 09/24/17 Unknown Rx Famotidine [Pepcid] 40 mg PO QHS #10 tablet 07/21/18 Unknown Rx diphenhydrAMINE [Benadryl CAP] 25 mg PO Q6HR PRN #12 capsule 07/21/18 Unknown Rx Active Meds: Active Medications Acetaminophen (Acetaminophen 325 Mg Tab) 650 mg PO Q4H PRN PRN Reason: Pain MILD(1-3)/Fever >100.5/[place] Albuterol (Albuterol 2.5 Mg/3 Ml Nebu) 2.5 mg IH Q4HRT PRN PRN Reason: Shortness Of Breath Aspirin (Aspirin 325 Mg Tab) 325 mg PO QDAY NILDA Atorvastatin Calcium (Atorvastatin 40 Mg Tab) 40 mg PO QHS NILDA Diphenhydramine HCl (Diphenhydramine 25 Mg Cap) 25 mg PO Q6HR PRN PRN Reason: Rash Donepezil HCl (Donepezil 5 Mg Tab) 5 mg PO DAILY [facility] Last Admin: 06/08/20 09:02 Dose: 5 mg Documented by: Enoxaparin Sodium (Enoxaparin 80 Mg/0.8 Ml Inj) 80 mg SUB-Q Q12HR [facility]; Protocol Last Admin: 06/08/20 09:02 Dose: 80 mg Documented by: Ergocalciferol (Ergocalciferol (Vit D2) 50,000 Unit Cap) unit PO 2XW NILDA Famotidine (Famotidine 20 Mg Tab) 40 mg PO QHS NILDA Last Admin: 06/07/20 21:04 Dose: 40 mg Documented by: Levofloxacin/Dextrose (Levaquin 500mg/100ml) 500 mg in 100 mls @ 100 mls/hr IV Q24H [facility]; Protocol Last Admin: 06/07/20 14:22 Dose: Not Given Documented by: Mirtazapine (Mirtazapine 30 Mg Tab) 30 mg PO QHS PRN PRN Reason: Sleep Miscellaneous Medication (Testosterone [Androderm]) 1 each TD DAILY [facility] Miscellaneous Medication (Tiotropium Br/Olodaterol Hcl [Stiolto Respimat Inhal S pray]) 1 puff IH DAILY [facility] Ondansetron HCl (Ondansetron 4 Mg/2 Ml Inj) 4 mg IV Q8H PRN PRN Reason: Nausea And Vomiting Prednisone (Prednisone 10 Mg Tab) 10 mg PO QDAY [facility] Last Admin: 06/08/20 09:02 Dose: 10 mg Documented by: Sodium Chloride (Sodium Chloride 0.9% 10 Ml Flush Syringe) 10 ml IV BID [facility] Last Admin: 06/08/20 09:02 Dose: 10 ml Documented by: Sodium Chloride (Sodium Chloride 0.9% 10 Ml Flush Syringe) 10 ml IV PRN PRN PRN Reason: LINE FLUSH Sodium Chloride (Sodium Chloride 0.9% 10 Ml Flush Syringe) 10 ml IV PRN PRN PRN Reason: LINE FLUSH Tramadol HCl (Tramadol 50 Mg Tab) 50 mg PO Q6H PRN PRN Reason: Pain, Moderate (4-6) Review of Systems ROS unobtainable: due to mental status Physical Examination Vital Signs Temp Pulse Resp BP Pulse Ox 97.5 F L 64 18 138/72 92 06/07/20 08:40 06/07/20 08:40 06/07/20 08:40 06/07/20 08:40 06/07/20 08:40 General appearance: no acute distress, well-nourished HEENT: Positive: PERRL, Mucus Membranes Moist Neck: Positive: neck supple, trachea midline Cardiac: Positive: Reg Rate and Rhythm, S1/S2. Negative: Audible Murmur Lungs: Positive: clear to auscultation, Normal Breath Sounds Neuro: Positive: Grossly Intact, Other (Demented) Abdomen: Positive: Soft, Active Bowel Sounds. Negative: Tender, Distended Male genitourinary: Positive: normal Skin: Positive: Clear Incision: Cardiac Cath Site Musculoskeletal: No Pain, Normal Range of Motion Extremities: Present: normal. Absent: edema Results 06/07/20 09:11 06/07/20 09:11 - Imaging and Cardiology Echo: report reviewed (Normal LV function without significant regurgitation) EKG interpretations - Telemetry EKG Rhythm: Sinus Bradycardia (Sinus bradycardia right bundle branch block) Assessment and Plan 89-year-old male who had a syncopal episode possible seizure with abnormal troponin with normal LV function echocardiogram CAT scan of the chest negative for pulmonary embolism but coronary calcification is noted. Continue Lovenox twice daily for 48 hours. Start aspirin statin Imdur. No beta-janine secondary to lower heart rate. Consider ischemic evaluation - Patient Problems (1) Advance care planning Current Visit: Yes Status: Acute (2) Cerebral atherosclerosis Current Visit: Yes Status: Acute (3) GERD (gastroesophageal reflux disease) Current Visit: Yes Status: Acute Qualifiers: Esophagitis presence: without esophagitis Qualified Code(s): K21.9 - Gastro-esophageal reflux disease without esophagitis (4) NSTEMI (non-ST elevated myocardial infarction) Current Visit: Yes Status: Acute (5) Syncope Current Visit: Yes Status: Acute (6) UTI (urinary tract infection) Current Visit: Yes Status: Acute Qualifiers: Encounter type: initial encounter (7) Vascular dementia Current Visit: Yes Status: Acute Qualifiers: Dementia behavioral disturbance: without behavioral disturbance Qualified Code(s): F01.50 - Vascular dementia without behavioral disturbance
--- NOTE | 2020-06-08 10:34 | Electrocardiograph Report ---
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
[2020-06-08] MEDS ORDERED: ENOXAPARIN 100 MG/1 ML INJ SUB-Q SCH (11:00)
[2020-06-08] MEDS: ASPIRIN 325 MG TAB PO SCH (11:10)
--- NOTE | 2020-06-08 18:38 | Progress Note ---
Assessment and Plan - Patient Problems (1) NSTEMI (non-ST elevated myocardial infarction) Current Visit: Yes Status: Acute Plan to address problem: Troponins and high We will get CK and CK-MB Cardiology consult is appreciated Ischemic evaluation Patient on 80 mg Lovenox subcu every [address] of IV heparin drip Check CK and CK-MB which is more specific (2) UTI (urinary tract infection) Current Visit: Yes Status: Acute Qualifiers: Encounter type: initial encounter Plan to address problem: Patient initiated on IV Rocephin pending cultures (3) SIRS (systemic inflammatory response syndrome) Current Visit: Yes Status: Acute Plan to address problem: Patient has UTI and started on IV Rocephin. (4) COPD (chronic obstructive pulmonary disease) Current Visit: Yes Status: Chronic Qualifiers: COPD type: unspecified COPD Qualified Code(s): J44.9 - Chronic obstructive pulmonary disease, unspecified Plan to address problem: Continue bronchodilators as needed (5) Vitamin D deficiency Current Visit: Yes Status: Chronic Plan to address problem: Continue vitamin D (6) GERD (gastroesophageal reflux disease) Current Visit: Yes Status: Chronic Qualifiers: Esophagitis presence: without esophagitis Qualified Code(s): K21.9 - Gastro-esophageal reflux disease without esophagitis Plan to address problem: Continue PPIs (7) DVT prophylaxis Current Visit: Yes Status: Acute Plan to address problem: Patient on Lovenox and GI prophylaxis Subjective Date of service: 06/08/20 Principal diagnosis: NSTEMI Interval history: 89 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 Patient is confused with diminished cognition at the time my evaluation is unable to provide history. Patient history taken from ED staff, EMS staff, as well as personal fci staff. As per staff the patient "was found in the bathroom unresponsive". EMS was notified and upon arrival the patient was found to be in distress with decreased responsiveness and sluggish pupils. Patient treated with Narcan and subsequently transported to [facility] for further care and evaluation of the aforementioned symptoms. The patient was seen and evaluated in the emergency department. All lab and imaging studies reviewed. Patient was found to have urinary tract infection as well as type II non-ST elevation NM. Patient admitted to telemetry and initiated on chest pain protocol as well as IV antibiotic therapy. No reports of fever, chills, chest pain, palpitation, productive cough, skin rash, recent ill contacts, or known exposure to COVID-19. Prior admission on 09/23/2017 reviewed. All medication listed at time of admission has been reconciled. Advanced care planning conducted in ED. Patient is confused with diminished cognition but has a positive gag reflex and is able to protect his airway without difficulty. Day #2 06/08/2020 No chest pain Patient alert but confused Patient resting in bed Objective - Constitutional Vitals: Vital Signs - 12hr 06/08/20 06/08/20 06/08/20 07:15 07:36 07:52 Temperature 98.0 F Pulse Rate 52 L Respiratory 18 18 Rate Blood Pressure 95/57 Blood Pressure [Left] O2 Sat by Pulse Oximetry 06/08/20 06/08/20 06/08/20 11:07 11:14 15:59 Temperature 98.6 F 98.3 F Pulse Rate 55 L 57 L Respiratory 18 20 Rate Blood Pressure 99/49 99/49 84/50 Blood Pressure [Left] O2 Sat by Pulse 97 Oximetry 06/08/20 17:46 Temperature Pulse Rate 57 L Respiratory Rate Blood Pressure Blood Pressure 111/57 [Left] O2 Sat by Pulse Oximetry General appearance: Present: no acute distress, well-nourished - EENT Eyes: PERRL, EOM intact ENT: hearing intact, clear oral mucosa Ears: bilateral: normal - Neck Neck: supple, normal ROM - Respiratory Respiratory effort: normal Respiratory: bilateral: CTA - Breasts Breasts: normal - Cardiovascular Heart rate: 80 Rhythm: regular Heart Sounds: Present: S1 & S2. Absent: gallop, rub Extremities: pulses intact, No edema, normal color, Full ROM - Gastrointestinal General gastrointestinal: Present: soft, non-tender, non-distended, normal bowel sounds - Genitourinary Male genitourinary: normal - Integumentary Integumentary: clear, warm, dry - Musculoskeletal Musculoskeletal: 1, strength equal bilaterally - Neurologic Neurologic: moves all extremities, other (Alert but not oriented) - Psychiatric Psychiatric: memory intact, appropriate mood/affect, intact judgment & insight - Labs CBC & Chem 7: 06/07/20 09:11 06/07/20 09:11 Labs: Abnormal lab results 06/07/20 Range/Units 19:00 Troponin T 0.808 H* D (0.00-0.029) ng/mL HEART Score - HEART Score Troponin: Troponin T 0.808 ng/mL (0.00-0.029) H* D 06/07/20 19:00
[2020-06-08 19:39] LABS: Creatine Kinase MB 51.5 ng/mL (0.0-4.0)
[2020-06-08] MEDS: FAMOTIDINE 20 MG TAB PO SCH (21:01)
[2020-06-08] MEDS: cefTRIAXone/NS 2 GM/100 ML 2 GM/100 ML BAG IV SCH (21:06)
[2020-06-09 04:39] LABS: Basophils % (Auto) 0.4 % (0.0-1.8); Eosinophils # (Auto) 0.2 K/mm3 (0.0-0.4); Hematocrit 37.2 % (35.5-45.6); Hemoglobin 12.8 gm/dl (11.8-15.2); Lymphocytes # (Auto) 2.6 K/mm3 (1.2-5.4); Lymphocytes % (Auto) 24.5 % (13.4-35.0); Mean Corpuscular HGB Conc 34 % (32-34); Mean Corpuscular Volume 96 fl (84-94); Monocytes # (Auto) 1.2 K/mm3 (0.0-0.8); Monocytes % (Auto) 11.4 % (0.0-7.3); Platelet Count 213 K/mm3 (140-440); Red Blood Count 3.89 M/mm3 (3.65-5.03); Red Cell Distribution Width 13.3 % (13.2-15.2)
[2020-06-09 04:58] LABS: Creatine Kinase MB 31.9 ng/mL (0.0-4.0)
[2020-06-09 05:08] LABS: Albumin 3.5 g/dL (3.9-5); Calcium 8.3 mg/dL (8.4-10.2)
[2020-06-09 07:52] LABS: Creatine Kinase MB 26.7 ng/mL (0.0-4.0)
--- NOTE | 2020-06-09 10:21 | Progress Note ---
Assessment and Plan 89-year-old male who had a syncopal episode possible seizure with abnormal troponin with normal LV function echocardiogram CAT scan of the chest negative for pulmonary embolism but coronary calcification is noted. Continue Lovenox twice daily for 48 hours. Start aspirin statin Imdur. No beta-janine secondary to lower heart rate. Unclear elevation in troponin patient has no ischemic changes on EKG denies any chest pain or is not in respiratory distress do a Lexiscan nuclear stress test in the morning for ischemic evaluation given patient's vascular dementia - Patient Problems (1) Advance care planning Current Visit: Yes Status: Acute (2) Cerebral atherosclerosis Current Visit: Yes Status: Acute (3) GERD (gastroesophageal reflux disease) Current Visit: Yes Status: Chronic Qualifiers: Esophagitis presence: without esophagitis Qualified Code(s): K21.9 - Gastro-esophageal reflux disease without esophagitis (4) NSTEMI (non-ST elevated myocardial infarction) Current Visit: Yes Status: Acute (5) Syncope Current Visit: Yes Status: Acute (6) UTI (urinary tract infection) Current Visit: Yes Status: Acute Qualifiers: Encounter type: initial encounter (7) Vascular dementia Current Visit: Yes Status: Acute Qualifiers: Dementia behavioral disturbance: without behavioral disturbance Qualified Code(s): F01.50 - Vascular dementia without behavioral disturbance Subjective Date of service: 06/09/20 Principal diagnosis: NSTEMI Interval history: awake but does not communicate well Objective Vital Signs Temp Pulse Resp BP BP Pulse Ox 06/09/20 09:04 98.6 F 63 18 130/68 97 06/09/20 09:02 96 06/09/20 03:44 98.5 F 63 18 132/68 97 06/08/20 22:58 98.3 F 55 L 17 124/73 100 06/08/20 22:00 55 L 06/08/20 21:20 98 06/08/20 19:42 97.5 F L 57 L 18 109/59 98 06/08/20 17:46 57 L 111/57 06/08/20 15:59 98.3 F 20 84/50 06/08/20 11:14 57 L 99/49 06/08/20 11:07 98.6 F 55 L 18 99/49 97 - Physical Examination General: No Apparent Distress HEENT: Positive: PERRL, Mucus Membranes Moist Neck: Positive: neck supple, trachea midline Cardiac: Positive: Reg Rate and Rhythm Lungs: Positive: clear to auscultation Neuro: Positive: Grossly Intact, Other (Demented) Abdomen: Positive: Soft, Active Bowel Sounds. Negative: Tender, Distended Skin: Positive: Clear Incision: Cardiac Cath Site Musculoskeletal: No Pain, Normal Range of Motion Extremities: Present: normal. Absent: edema - Labs and Meds Cardiac Enzymes 06/08/20 06/09/20 06/09/20 Range/Units 19:02 03:49 03:49 AST 88 H (5-40) units/L CK-MB (CK-2) 51.5 H 31.9 H (0.0-4.0) ng/mL 06/09/20 Range/Units 06:36 AST (5-40) units/L CK-MB (CK-2) 26.7 H (0.0-4.0) ng/mL CBC 06/09/20 Range/Units 03:49 WBC 10.6 (4.5-11.0) K/mm3 RBC 3.89 (3.65-5.03) M/mm3 Hgb 12.8 (11.8-15.2) gm/dl Hct 37.2 (35.5-45.6) % Plt Count 213 (140-440) K/mm3 Lymph # (Auto) 2.6 (1.2-5.4) K/mm3 [place] # (Auto) 1.2 H (0.0-0.8) K/mm3 Eos # (Auto) 0.2 (0.0-0.4) K/mm3 Baso # (Auto) 0.0 (0.0-0.1) K/mm3 Comprehensive Metabolic Panel 06/09/20 Range/Units 03:49 Sodium 144 (137-145) mmol/L Potassium 4.2 (3.6-5.0) mmol/L Chloride 109.5 H (98-107) mmol/L Carbon Dioxide 24 (22-30) mmol/L BUN 25 H (9-20) mg/dL Creatinine 1.3 (0.8-1.3) mg/dL Glucose 85 (75-100) mg/dL Calcium 8.3 L (8.4-10.2) mg/dL AST 88 H (5-40) units/L ALT 24 (7-56) units/L Alkaline Phosphatase 77 (35-129) units/L Total Protein 6.5 (6.3-8.2) g/dL Albumin 3.5 L (3.9-5) g/dL - Imaging and Cardiology Echo: report reviewed (Normal LV function without significant regurgitation) - Telemetry EKG Rhythm: Sinus Rhythm (in 60's)
[2020-06-09] MEDS: DONEPEZIL 5 MG TAB PO SCH (10:22)
[2020-06-09] MEDS: predniSONE 10 MG TAB PO SCH (10:22)
[2020-06-09] MEDS: ENOXAPARIN 80 MG/0.8 ML INJ SUB-Q SCH ×2 (10:22→21:08)
[2020-06-09] MEDS: ASPIRIN 325 MG TAB PO SCH (10:22)
--- NOTE | 2020-06-09 12:12 | Progress Note ---
Assessment and Plan - Patient Problems (1) NSTEMI (non-ST elevated myocardial infarction) Current Visit: Yes Status: Acute Plan to address problem: Troponins and high CK and CK-MB are high Cardiology consult is appreciated Ischemic evaluation Patient on 80 mg Lovenox subcu every [address] of IV heparin drip Patient for Lexiscan in the morning (2) UTI (urinary tract infection) Current Visit: Yes Status: Acute Qualifiers: Encounter type: initial encounter Plan to address problem: Patient initiated on IV Rocephin pending cultures (3) SIRS (systemic inflammatory response syndrome) Current Visit: Yes Status: Acute Plan to address problem: Patient has UTI and started on IV Rocephin. (4) COPD (chronic obstructive pulmonary disease) Current Visit: Yes Status: Chronic Qualifiers: COPD type: unspecified COPD Qualified Code(s): J44.9 - Chronic obstructive pulmonary disease, unspecified Plan to address problem: Continue bronchodilators as needed (5) Vitamin D deficiency Current Visit: Yes Status: Chronic Plan to address problem: Continue vitamin D (6) GERD (gastroesophageal reflux disease) Current Visit: Yes Status: Chronic Qualifiers: Esophagitis presence: without esophagitis Qualified Code(s): K21.9 - Gastro-esophageal reflux disease without esophagitis Plan to address problem: Continue PPIs (7) DVT prophylaxis Current Visit: Yes Status: Acute Plan to address problem: Patient on Lovenox and GI prophylaxis Subjective Date of service: 06/09/20 Principal diagnosis: NSTEMI Interval history: 89 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 Patient is confused with diminished cognition at the time my evaluation is unable to pr ovide history. Patient history taken from ED staff, EMS staff, as well as personal senior care staff. As per staff the patient "was found in the bathroom unresponsive". EMS was notified and upon arrival the patient was found to be in distress with decreased responsiveness and sluggish pupils. Patient treated with Narcan and subsequently transported to [facility] for further care and evaluation of the aforementioned symptoms. The patient was seen and evaluated in the emergency department. All lab and imaging studies reviewed. Patient was found to have urinary tract infection as well as type II non-ST elevation [place]. Patient admitted to telemetry and initiated on chest pain protocol as well as IV antibiotic therapy. No reports of fever, chills, chest pain, palpitation, productive cough, skin rash, recent ill contacts, or known exposure to COVID-19. Prior admission on 09/23/2017 reviewed. All medication listed at time of admission has been reconciled. Advanced care planning conducted in ED. Patient is confused with diminished cognition but has a positive gag reflex and is able to protect his airway without difficulty. Day #2 06/08/2020 No chest pain Patient alert but confused Patient resting in bed Day #3 06/09/2020 Troponins elevated CK-MB also elevated which is specific for ischemic injury Objective - Constitutional Vitals: Vital Signs - 12hr 06/09/20 06/09/20 06/09/20 03:44 09:02 09:04 Temperature 98.5 F 98.6 F Pulse Rate 63 63 Respiratory 18 18 Rate Blood Pressure 132/68 Blood Pressure 130/68 [Left] O2 Sat by Pulse 97 96 97 Oximetry 06/09/20 06/09/20 10:00 12:07 Temperature 98.0 F Pulse Rate 65 60 Respiratory 18 Rate Blood Pressure Blood Pressure 130/64 [Left] O2 Sat by Pulse 96 Oximetry General appearance: Present: no acute distress, well-nourished - EENT Eyes: PERRL, EOM intact ENT: hearing intact, clear oral mucosa Ears: bilateral: normal - Neck Neck: supple, normal ROM - Respiratory Respiratory effort: normal Respiratory: bilateral: CTA - Breasts Breasts: normal - Cardiovascular Heart rate: 78 Rhythm: regular Heart Sounds: Present: S1 & S2. Absent: gallop, rub Extremities: pulses intact, No edema, normal color, Full ROM - Gastrointestinal General gastrointestinal: Present: soft, non-tender, non-distended, normal bowel sounds - Genitourinary Male genitourinary: normal - Integumentary Integumentary: clear, warm, dry - Musculoskeletal Musculoskeletal: 1, strength equal bilaterally - Neurologic Neurologic: moves all extremities - Psychiatric Psychiatric: memory intact, appropriate mood/affect, intact judgment & insight - Allied health notes Allied health notes reviewed: nursing, case management - Labs CBC & Chem 7: 06/09/20 03:49 06/09/20 03:49 Labs: Abnormal lab results 06/08/20 06/09/20 06/09/20 Range/Units 19:02 03:49 03:49 MCV 96 H (84-94) fl MCH 33 H (28-32) pg [place] % (Auto) 11.4 H (0.0-7.3) % [place] # (Auto) 1.2 H (0.0-0.8) K/mm3 Chloride 109.5 H (98-107) mmol/L BUN 25 H (9-20) mg/dL Calcium 8.3 L (8.4-10.2) mg/dL AST 88 H (5-40) units/L Total Creatine Kinase 789 H (55-170) units/L CK-MB (CK-2) 51.5 H (0.0-4.0) ng/mL CK-MB (CK-2) Rel Index 6.5 H (0-4) Troponin T (0.00-0.029) ng/mL Albumin 3.5 L (3.9-5) g/dL 06/09/20 06/09/20 06/09/20 Range/Units 03:49 03:49 06:36 MCV (84-94) fl MCH (28-32) pg [place] % (Auto) (0.0-7.3) % [place] # (Auto) (0.0-0.8) K/mm3 Chloride (98-107) mmol/L BUN (9-20) mg/dL Calcium (8.4-10.2) mg/dL AST (5-40) units/L Total Creatine Kinase 567 H 496 H (55-170) units/L CK-MB (CK-2) 31.9 H 26.7 H (0.0-4.0) ng/mL CK-MB (CK-2) Rel Index 5.6 H 5.3 H (0-4) Troponin T 4.470 H* D (0.00-0.029) ng/mL Albumin (3.9-5) g/dL HEART Score - HEART Score Troponin: Troponin T 4.470 ng/mL (0.00-0.029) H* D 06/09/20 03:49
--- NOTE | 2020-06-09 14:01 | Electrocardiograph Report ---
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
[2020-06-09] MEDS: cefTRIAXone/NS 2 GM/100 ML 2 GM/100 ML BAG IV SCH (14:06)
[2020-06-09] MEDS: FAMOTIDINE 20 MG TAB PO SCH (21:08)
[2020-06-10] MEDS ORDERED: REGADENOSON 0.4 MG/5 ML INJ IV ONE (07:15)
[2020-06-10 08:05] LABS: Basophils % (Auto) 0.5 % (0.0-1.8); Eosinophils # (Auto) 0.2 K/mm3 (0.0-0.4); Hemoglobin 11.8 gm/dl (11.8-15.2); Lymphocytes # (Auto) 2.5 K/mm3 (1.2-5.4); Lymphocytes % (Auto) 25.5 % (13.4-35.0); Mean Corpuscular HGB Conc 36 % (32-34); Mean Corpuscular Volume 94 fl (84-94); Monocytes # (Auto) 1.1 K/mm3 (0.0-0.8); Monocytes % (Auto) 11.3 % (0.0-7.3); Platelet Count 210 K/mm3 (140-440); Red Blood Count 3.51 M/mm3 (3.65-5.03); Red Cell Distribution Width 13.5 % (13.2-15.2)
[2020-06-10 08:55] LABS: Albumin 3.4 g/dL (3.9-5); Calcium 8.5 mg/dL (8.4-10.2)
[2020-06-10] MEDS: ENOXAPARIN 80 MG/0.8 ML INJ SUB-Q SCH ×2 (09:55→11:28)
[2020-06-10] MEDS: ASPIRIN 325 MG TAB PO SCH (11:27)
[2020-06-10] MEDS: predniSONE 10 MG TAB PO SCH (11:27)
[2020-06-10] MEDS: cefTRIAXone/NS 2 GM/100 ML 2 GM/100 ML BAG IV SCH (11:28)
[2020-06-10] MEDS: DONEPEZIL 5 MG TAB PO SCH (11:28)
--- NOTE | 2020-06-10 11:47 | Progress Note ---
Assessment and Plan 89-year-old male who had a syncopal episode possible seizure with abnormal troponin with normal LV function echocardiogram CAT scan of the chest negative for pulmonary embolism but coronary calcification is noted. S/p lexiscan MPI stress test today which showed fixed defects, negative for significant ischemia, normal EF. pt has received full dosage Lovenox twice daily for >48 hours. Cont ASA, statin, Imdur. No beta-janine secondary to interminttent sinus bradycardia. Patient has no ischemic changes on EKG denies any chest pain. CE elevation appears c/w NSTEMI type II - elevated Gian could be secondary to neurogenic cause with ? seizures and/or intermittent hypotension. Consider neurology evaluation per primary team. Currently stable cardiac status. Nothing further to add from cardiac perspective at this time. Will sign off. Recommend pt follow up in our office with Dr. Cm within 2 weeks of discharge ([phone]). The patient has been seen in conjunction with Dr. Uribe who agrees with the assessment and plan of care. - Patient Problems (1) Advance care planning Current Visit: Yes Status: Acute (2) Cerebral atherosclerosis Current Visit: Yes Status: Acute (3) GERD (gastroesophageal reflux disease) Current Visit: Yes Status: Chronic Qualifiers: Esophagitis presence: without esophagitis Qualified Code(s): K21.9 - Gastro-esophageal reflux disease without esophagitis (4) NSTEMI (non-ST elevated myocardial infarction) Current Visit: Yes Status: Acute (5) Syncope Current Visit: Yes Status: Acute (6) UTI (urinary tract infection) Current Visit: Yes Status: Acute Qualifiers: Encounter type: initial encounter (7) Vascular dementia Current Visit: Yes Status: Acute Qualifiers: Dementia behavioral disturbance: without behavioral disturbance Qualified Code(s): F01.50 - Vascular dementia without behavioral disturbance Subjective Date of service: 06/10/20 Principal diagnosis: NSTEMI Interval history: pt for stress test today. no current cardiac complaints. tele reviewed - in NSR HR 60s, SB HR low 45bpm noted overnight. Objective Last Vital Signs Temp 98.7 F 06/10/20 07:47 Pulse 53 L 06/10/20 07:47 Resp 16 06/10/20 03:26 BP 103/49 06/10/20 07:49 Pulse Ox 94 06/10/20 07:47 - Physical Examination General: No Apparent Distress HEENT: Positive: PERRL, Mucus Membranes Moist Neck: Positive: neck supple, trachea midline Cardiac: Positive: Reg Rate and Rhythm, S1/S2 Lungs: Positive: Decreased Breath Sounds Neuro: Positive: Grossly Intact, Other (Demented) Abdomen: Positive: Soft, Active Bowel Sounds. Negative: Tender, Distended Skin: Positive: Clear Incision: Cardiac Cath Site Musculoskeletal: No Pain, Normal Range of Motion Extremities: Present: normal. Absent: edema - Labs and Meds Cardiac Enzymes 06/10/20 Range/Units 07:20 AST 39 (5-40) units/L CBC 06/10/20 Range/Units 07:20 WBC 10.0 (4.5-11.0) K/mm3 RBC 3.51 L (3.65-5.03) M/mm3 Hgb 11.8 (11.8-15.2) gm/dl Hct 33.0 L (35.5-45.6) % Plt Count 210 (140-440) K/mm3 Lymph # (Auto) 2.5 (1.2-5.4) K/mm3 [place]haw # (Auto) 1.1 H (0.0-0.8) K/mm3 Eos # (Auto) 0.2 (0.0-0.4) K/mm3 Baso # (Auto) 0.0 (0.0-0.1) K/mm3 Comprehensive Metabolic Panel 06/10/20 Range/Units 07:20 Sodium 143 (137-145) mmol/L Potassium 4.0 (3.6-5.0) mmol/L Chloride 109.8 H (98-107) mmol/L Carbon Dioxide 24 (22-30) mmol/L BUN 26 H (9-20) mg/dL Creatinine 1.3 (0.8-1.3) mg/dL Glucose 81 (75-100) mg/dL Calcium 8.5 (8.4-10.2) mg/dL AST 39 (5-40) units/L ALT 20 (7-56) units/L Alkaline Phosphatase 69 (35-129) units/L Total Protein 6.0 L (6.3-8.2) g/dL Albumin 3.4 L (3.9-5) g/dL - Imaging and Cardiology Echo: report reviewed (Normal LV function without significant regurgitation) - Telemetry EKG Rhythm: Sinus Rhythm
--- NOTE | 2020-06-10 12:35 | Discharge Summary ---
Providers - Providers Date of Admission: 06/07/20 12:03 Date of discharge: 06/10/20 Attending physician: LEO EPPERSON 06/10/20 11:59 Physical Therapy Evaluation and Treat [CONS] Routine Comment: Reason For Exam: debility Primary care physician: OWNER/OPERATOR Hospitalization Condition: Stable Hospital course: Subjective Date of service: 06/10/20 Principal diagnosis: NSTEMI Interval history: 89 YO Male Personal Long-Term Resident with Vascular Dementia, Cerebral Atherosclerosis, Depression, COPD, GERD presents to ED for evaluation. Patient is confused with diminished cognition at the time my evaluation is unable to provide history. Patient history taken from ED staff, EMS staff, as well as personal long-term staff. As per staff the patient "was found in the bathroom unresponsive". EMS was notified and upon arrival the patient was found to be in distress with decreased responsiveness and sluggish pupils. Patient treated with Narcan and subsequently transported to [facility] for further care and evaluation of the aforementioned symptoms. The patient was seen and evaluated in the emergency department. All lab and imaging studies reviewed. Patient was found to have urinary tract infection as well as type II non-ST elevation RI. Patient admitted to telemetry and initiated on chest pain protocol as well as IV antibiotic therapy. No reports of fever, chills, chest pain, palpitation, productive cough, skin rash, recent ill contacts, or known exposure to COVID-19. Prior admission on 09/23/2017 reviewed. All medication listed at time of admission has been reconciled. Advanced care planning conducted in ED. Patient is confused with diminished cognition but has a positive gag reflex and is able to protect his airway without difficulty. Day #2 06/08/2020 No chest pain Patient alert but confused Patient resting in bed Day #3 06/09/2020 Troponins elevated CK-MB also elevated which is specific for ischemic injury Day #4 Patient had a stress test which was negative We will discharge home today to personal long-term Talked with [facility] and they are willing to accept the patient Patient lying in bed and eating with no complaints Alert and oriented to some extent Assessment and Plan - Patient Problems (1) NSTEMI (non-ST elevated myocardial infarction) Current Visit: Yes Status: Acute Plan to address problem: Stress test negative Follow-up with Dr. Toussaint in 1 week (2) UTI (urinary tract infection) Current Visit: Yes Status: Acute Qualifiers: Encounter type: initial encounter Plan to address problem: Patient initiated on IV Rocephin pending cultures We will discharge on Ceftin 500 twice daily for 7 more days (3) SIRS (systemic inflammatory response syndrome) Current Visit: Yes Status: Acute Plan to address problem: Resolved (4) COPD (chronic obstructive pulmonary disease) Current Visit: Yes Status: Chronic Qualifiers: COPD type: unspecified COPD Qualified Code(s): J44.9 - Chronic obstructive pulmonary disease, unspecified Plan to address problem: Continue bronchodilators as needed (5) Vitamin D deficiency Current Visit: Yes Status: Chronic Plan to address problem: Continue vitamin D (6) GERD (gastroesophageal reflux disease) Current Visit: Yes Status: Chronic Qualifiers: Esophagitis presence: without esophagitis Qualified Code(s): K21.9 - Gastro-esophageal reflux disease without esophagitis Plan to address problem: Continue PPIs Disposition: DC/TX-70 ANOTHER TYPE HLTHCARE Final Discharge Diagnosis (Prints w/discharge instructions): NSTEMI. UTI. SIRS Time spent for discharge: 35 minutes - Discharge Diagnoses (1) NSTEMI (non-ST elevated myocardial infarction) Status: Acute (2) UTI (urinary tract infection) Status: Acute Qualifiers: Encounter type: initial encounter (3) SIRS (systemic inflammatory response syndrome) Status: Acute (4) COPD (chronic obstructive pulmonary disease) Status: Chronic Qualifiers: COPD type: unspecified COPD Qualified Code(s): J44.9 - Chronic obstructive pulmonary disease, unspecified (5) Vitamin D deficiency Status: Chronic (6) GERD (gastroesophageal reflux disease) Status: Chronic Qualifiers: Esophagitis presence: without esophagitis Qualified Code(s): K21.9 - Gastro-esophageal reflux disease without esophagitis (7) DVT prophylaxis Status: Acute Core Measure Documentation - Palliative Care Palliative Care/ Comfort Measures: Not Applicable - Core Measures Any of the following diagnoses?: acute RI - Acute RI Discharge Requirements Aspirin at discharge: Yes IRMA/ARB for LVSD if EF <40%: Yes Beta janine at discharge: Yes Statin for LDL = or >100 mg/dl on DC: Yes Exam - Constitutional Vitals: Temp Pulse Resp BP Pulse Ox 98.7 F 65 19 103/49 94 06/10/20 07:47 06/10/20 10:00 06/10/20 10:00 06/10/20 07:49 06/10/20 07:47 General appearance: Present: no acute distress, well-nourished - EENT Eyes: Present: PERRL ENT: hearing intact, clear oral mucosa - Neck Neck: Present: supple, normal ROM - Respiratory Respiratory effort: normal Respiratory: bilateral: CTA - Cardiovascular Heart rate: 78 Rhythm: regular Heart Sounds: Present: S1 & S2. Absent: rub, click - Extremities Extremities: pulses symmetrical, No edema Peripheral Pulses: within normal limits - Abdominal General gastrointestinal: Present: soft, non-tender, non-distended, normal bowel sounds Male genitourinary: Present: normal - Integumentary Integumentary: Present: clear, warm, dry - Musculoskeletal Musculoskeletal: gait normal, strength equal bilaterally - Psychiatric Psychiatric: appropriate mood/affect, intact judgment & insight - Neurologic Neurologic: CNII-XII intact, moves all extremities Plan Activity: no restrictions Diet: low salt Follow up with: PRIMARY MD REENA [Primary Care Provider] - 3-5 Days STACEY NORIEGA MD [Staff Physician] - 7 Days
[2020-06-10 16:23] VITALS: BP 114/67
[2020-06-11] MEDS ORDERED: ASPIRIN 81 MG TAB CHEW PO SCH (10:00)
== END 2020-06-10 18:13 | disposition home or self-care (01) | DRG 689 ==
LOC: ED 08:11 → 4A 12:03
PROVIDERS: ADMIT Internal Medicine; ATTEND Internal Medicine
DX: N39.0 Urinary tract infection, site not specified (principal); I21.A1 Myocardial infarction type 2; G93.40 Encephalopathy, unspecified; I42.9 Cardiomyopathy, unspecified; R65.10 Systemic inflammatory response syndrome (SIRS) of non-infectious origin without acute organ dysfunction; J44.1 Chronic obstructive pulmonary disease with (acute) exacerbation; I67.2 Cerebral atherosclerosis; J44.9 Chronic obstructive pulmonary disease, unspecified; F32.9 Major depressive disorder, single episode, unspecified; K21.9 Gastro-esophageal reflux disease without esophagitis; E55.9 Vitamin D deficiency, unspecified; F01.50 Vascular dementia, unspecified severity, without behavioral disturbance, psychotic disturbance, mood disturbance, and anxiety; Z79.899 Other long term (current) drug therapy; Z79.01 Long term (current) use of anticoagulants; Z79.891 Long term (current) use of opiate analgesic; Z88.0 Allergy status to penicillin; Z91.013 Allergy to seafood; Z88.8 Allergy status to other drugs, medicaments and biological substances; Z63.4 Disappearance and death of family member; Z79.82 Long term (current) use of aspirin
CPT/HCPCS: 36415; 70450; 71045; 71275; 78452; 80048; 80053; 80061; 80076; 80307; 81001; 82550; 82553; 82962; 84484; 85025; 85379; 85610; 85730; 93005; 93017; 93306; 94760; 96365; 96375; G0378; A9270-GY; A9502; J0696; J1650; J1956; J7512; Q9967

== ENCOUNTER 2020-08-12 11:52 | Observation (INO) | payer MEDICARE ==
[2020-08-12] MEDS ORDERED: ONDANSETRON 4 MG/2 ML INJ IV ONE (12:05)
[2020-08-12] MEDS ORDERED: MORPHINE 4 MG/1 ML INJ IV ONE (12:05)
--- NOTE | 2020-08-12 12:10 | Emergency Department Report ---
ED Abdominal Pain HPI - General Stated Complaint: ABD PAIN/DEMENTIA Source: EMS - History of Present Illness Initial Comments: Patient is 89 years old male with history of advanced dementia and COPD. Patient brought to the emergency room via EMS from a local assisted living facility for evaluation of abdominal pain for the last 2 days. Staff informed EMS that he did not have a bowel movement for 2 days. No nausea or vomiting. No fever or chills. Patient is not communicating secondary to his advanced dementia. MD Complaint: abdominal pain -: days(s) Location: LL Radiation: none Migration to: no migration - Related Data Home Medications Medication Instructions Recorded Confirmed Last Taken Albuterol Sulfate [Ventolin HFA] 2 puff IH PRN PRN 09/20/17 06/09/20 Unknown Ergocalciferol [Vitamin D2] 1 cap PO 2XW 09/20/17 06/09/20 Unknown Previous Rx's Medication Instructions Recorded Last Taken Type ALBUTEROL NEB's [Proventil 0.083% 2.5 mg IH Q3HRT PRN #30 nebu 09/24/17 Unknown Rx NEBS] Acetaminophen [Acetaminophen TAB] 650 mg PO Q4H PRN #30 tablet 09/24/17 Unknown Rx Mirtazapine [Remeron 30mg TAB] 30 mg PO QHS PRN #30 tablet 09/24/17 Unknown Rx levoFLOXacin [Levaquin TAB] 500 mg PO Q24HR #5 tablet 09/24/17 Unknown Rx Famotidine [Pepcid] 40 mg PO QHS #10 tablet 07/21/18 Unknown Rx diphenhydrAMINE [Benadryl CAP] 25 mg PO Q6HR PRN #12 capsule 07/21/18 Unknown Rx Aspirin EC [Halfprin EC] 81 mg PO QDAY #100 tablet. 06/10/20 Unknown Rx AtorvaSTATin [Lipitor] 40 mg PO QHS #30 tablet 06/10/20 Unknown Rx Clopidogrel [Plavix] 75 mg PO QDAY #30 tablet 06/10/20 Unknown Rx ISOSORBIDE MONOnitrate [Imdur ER] 30 mg PO QDAY #30 tablet 06/10/20 Unknown Rx Ipratropium/Albuterol Sulfate 1 ampul IH DAILY #50 ampul.lux 06/10/20 Unknown Rx [DUONEB *Not for PRN Use*] Losartan [Cozaar] 25 mg PO QDAY #30 tablet 06/10/20 Unknown Rx Testosterone [Androderm] 1 each TD DAILY 06/10/20 Unknown Rx Tiotropium Br/Olodaterol HCl 1 puff IH DAILY #1 06/10/20 Unknown Rx [Stiolto Respimat Inhal [place]] carvediloL [Coreg] 3.125 mg PO BID #60 tablet 06/10/20 Unknown Rx donepeziL [Aricept] 5 mg PO DAILY #30 tablet 06/10/20 Unknown Rx predniSONE 10 mg PO QDAY #30 tablet 06/10/20 Unknown Rx Allergies Allergy/AdvReac Type Severity Reaction Status Date / Time haloperidol [From Haldol] Allergy Unknown Verified 09/30/17 12:34 Penicillins Allergy Itching Verified 11/07/13 00:39 shellfish derived Allergy Unknown Verified 09/30/17 12:34 ED Review of Systems ROS: Stated complaint: ABD PAIN/DEMENTIA Other details as noted in HPI Comment: All other systems reviewed and negative Constitutional: denies: chills, fever Respiratory: cough Cardiovascular: denies: chest pain Gastrointestinal: abdominal pain, constipation. denies: nausea, vomiting Musculoskeletal: denies: back pain Neurological: denies: headache, weakness ED Past Medical Hx - Past Medical History Hx Psychiatric Treatment: Yes (Depression) Hx COPD: Yes Hx Dementia: Yes - Surgical History Additional Surgical History: Back surgery in 2008 - Social History Smoking Status: Never Smoker - Medications Home Medications: Home Medications Medication Instructions Recorded Confirmed Last Taken Type Albuterol Sulfate [Ventolin HFA] 2 puff IH PRN PRN 09/20/17 06/09/20 Unknown History Ergocalciferol [Vitamin D2] 1 cap PO 2XW 09/20/17 06/09/20 Unknown History ALBUTEROL NEB's [Proventil 0.083% 2.5 mg IH Q3HRT PRN #30 nebu 09/24/17 06/09/20 Unknown Rx NEBS] Acetaminophen [Acetaminophen TAB] 650 mg PO Q4H PRN #30 tablet 09/24/17 06/09/20 Unknown Rx Mirtazapine [Remeron 30mg TAB] 30 mg PO QHS PRN #30 tablet 09/24/17 06/09/20 Unknown Rx levoFLOXacin [Levaquin TAB] 500 mg PO Q24HR #5 tablet 09/24/17 06/09/20 Unknown Rx Famotidine [Pepcid] 40 mg PO QHS #10 tablet 07/21/18 06/09/20 Unknown Rx diphenhydrAMINE [Benadryl CAP] 25 mg PO Q6HR PRN #12 capsule 07/21/18 06/09/20 Unknown Rx Aspirin EC [Halfprin EC] 81 mg PO QDAY #100 tablet. 06/10/20 Unknown Rx AtorvaSTATin [Lipitor] 40 mg PO QHS #30 tablet 06/10/20 Unknown Rx Clopidogrel [Plavix] 75 mg PO QDAY #30 tablet 06/10/20 Unknown Rx ISOSORBIDE MONOnitrate [Imdur ER] 30 mg PO QDAY #30 tablet 06/10/20 Unknown Rx Ipratropium/Albuterol Sulfate 1 ampul IH DAILY #50 ampul.neb 06/10/20 Unknown Rx [DUONEB *Not for PRN Use*] Losartan [Cozaar] 25 mg PO QDAY #30 tablet 06/10/20 Unknown Rx Testosterone [Androderm] 1 each TD DAILY 06/10/20 Unknown Rx Tiotropium Br/Olodaterol HCl 1 puff IH DAILY #1 06/10/20 Unknown Rx [Stiolto Respimat Inhal [place]] carvediloL [Coreg] 3.125 mg PO BID #60 tablet 06/10/20 Unknown Rx donepeziL [Aricept] 5 mg PO DAILY #30 tablet 06/10/20 Unknown Rx predniSONE 10 mg PO QDAY #30 tablet 06/10/20 Unknown Rx ED Physical Exam - General General appearance: alert, in no apparent distress - Head Head exam: Present: atraumatic, normocephalic, normal inspection - Eye Eye exam: Present: normal appearance, PERRL - ENT ENT exam: Present: normal exam, normal orophraynx, mucous membranes moist - Neck Neck exam: Present: normal inspection, full ROM. Absent: tenderness, meningismus - Respiratory Respiratory exam: Present: rales. Absent: respiratory distress - Cardiovascular Cardiovascular Exam: Present: regular rate, normal rhythm, normal heart sounds - GI/Abdominal GI/Abdominal exam: Present: soft, normal bowel sounds. Absent: distended, tenderness, guarding, rebound, rigid, organomegaly, mass, bruit, pulsatile mass, hernia - Extremities Exam Extremities exam: Present: normal inspection, full ROM, normal capillary refill. Absent: pedal edema, calf tenderness - Back Exam Back exam: Present: normal inspection, full ROM. Absent: CVA tenderness (R), CVA tenderness (L) - Neurological Exam Neurological exam: Present: alert, oriented X3, CN II-XII intact - Psychiatric Psychiatric exam: Present: normal mood - Skin Skin exam: Present: warm, intact, normal color ED Course Vital Signs 08/12/20 08/12/20 08/12/20 12:33 12:41 13:01 Temperature 98.3 F Pulse Rate 81 56 L 56 L Respiratory 17 20 17 Rate Blood Pressure 100/52 Blood Pressure 112/64 [Right] O2 Sat by Pulse 97 98 94 Oximetry 08/12/20 08/12/20 08/12/20 14:01 15:01 16:01 Temperature Pulse Rate 48 L Respiratory 16 17 16 Rate Blood Pressure 103/59 100/50 93/51 Blood Pressure [Right] O2 Sat by Pulse 97 96 Oximetry 08/12/20 08/12/20 08/12/20 16:05 16:11 16:15 Temperature Pulse Rate 49 L 49 L 52 L Respiratory 15 16 16 Rate Blood Pressure 93/51 93/51 93/51 Blood Pressure [Right] O2 Sat by Pulse 95 96 96 Oximetry 08/12/20 08/12/20 16:33 16:35 Temperature Pulse Rate 49 L 51 L Respiratory 14 12 Rate Blood Pressure 98/50 98/50 Blood Pressure [Right] O2 Sat by Pulse 97 96 Oximetry ED Medical Decision Making - Lab Data Result diagrams: 08/12/20 13:20 08/12/20 13:20 - Radiology Data Radiology results: report reviewed - Medical Decision Making Patient is 89 years old male with history of advanced dementia and COPD. Patient brought to the emergency room via EMS from a local assisted living facility for evaluation of abdominal pain for the last 2 days. Staff informed EMS that he did not have a bowel movement for 2 days. No nausea or vomiting. No fever or chills. Patient is not communicating secondary to his advanced dementia. Labs reviewed and is unremarkable. CT abdomen and pelvis showed large amount of stool consistent with patient history of constipation. Patient given prescription for lactulose and Colace and advised to follow-up with his primary doctor in the next 2 to 3 days and to return to the ER if he develop any new symptoms. Critical care attestation.: If time is entered above; I have spent that time in minutes in the direct care of this critically ill patient, excluding procedure time. ED Disposition Clinical Impression: Acute abdominal pain, Acute constipation Disposition: TO HOME OR SELFCARE Is pt being admited?: No Condition: Stable Instructions: Constipation, Adult, Abdominal Pain, Adult Referrals: PRIMARY CARE,MD [Primary Care Provider] - 3-5 Days
--- NOTE | 2020-08-12 13:07 | XRay Report ---
CHEST 1 VIEW INDICATION: COUGH. COMPARISON: 06/07/2020 FINDINGS: SUPPORT DEVICES: None. HEART: Within normal limits. LUNGS/PLEURA: Calcified pleural plaque again noted in the mid peripheral right lung, with diffusely i ncreased interstitial markings which appears to be chronic. There is no consolidation or pleural effu melchor. ADDITIONAL FINDINGS: None. IMPRESSION: 1. No acute findings. Chronic-appearing findings in the lungs. Signer Name: Bryan Thomas MD Signed: 08/12/2020 1:02 PM Workstation Name: [id number]
[2020-08-12 14:34] LABS: Basophils # (Auto) 0.1 K/mm3 (0.0-0.1); Basophils % (Auto) 0.6 % (0.0-1.8); Eosinophils # (Auto) 0.4 K/mm3 (0.0-0.4); Eosinophils % (Auto) 3.4 % (0.0-4.3); Hematocrit 36.4 % (35.5-45.6); Hemoglobin 12.5 gm/dl (11.8-15.2); Lymphocytes # (Auto) 1.7 K/mm3 (1.2-5.4); Lymphocytes % (Auto) 14.9 % (13.4-35.0); Mean Corpuscular HGB Conc 34 % (32-34); Mean Corpuscular Volume 96 fl (84-94); Monocytes # (Auto) 1.4 K/mm3 (0.0-0.8); Monocytes % (Auto) 12.8 % (0.0-7.3); Platelet Count 273 K/mm3 (140-440); Red Blood Count 3.81 M/mm3 (3.65-5.03); Red Cell Distribution Width 14.1 % (13.2-15.2)
[2020-08-12 14:52] LABS: Alanine Aminotransferase 9 units/L (7-56); Albumin 3.5 g/dL (3.9-5); BUN/Creatinine Ratio 14; Bilirubin,Direct 0.2 mg/dL (0-0.2); Blood Urea Nitrogen 15 mg/dL (9-20); Calcium 8.6 mg/dL (8.4-10.2); Hemolysis Index 19
--- NOTE | 2020-08-12 16:52 | Cat Scan Report ---
CT ABDOMEN AND PELVIS WITHOUT CONTRAST INDICATION / CLINICAL INFORMATION: Unspecified abdominal pain. TECHNIQUE: Axial CT images were obtained through the abdomen and pelvis without IV contrast. All CT scans at [facility] location are performed using CT dose reduction for ALARA by means of automated exposure control. COMPARISON: CT abdomen and pelvis with contrast from 09/30/2017. FINDINGS: LOWER CHEST: There is a trace right pleural effusion with bibasilar atelectasis/scarring. Calcified l eft basilar pleural plaques are noted. No other significant abnormality. LIVER: No significant abnormality. GALLBLADDER: Surgically absent. BILE DUCTS: No significant abnormality. PANCREAS: No significant abnormality. SPLEEN: No significant abnormality. ADRENALS: No significant abnormality. RIGHT KIDNEY / URETER: A nonobstructive right upper renal pole stone measures approximately 1-2 mm. N o other significant abnormality. LEFT KIDNEY / URETER: The previously described probable mid pole left renal cyst is unchanged. There is a 3 mm nonobstructive left lower renal pole stone without other significant abnormalities. STOMACH / SMALL BOWEL: No significant abnormality. COLON: The colon contains a large amount of stool with scattered diverticulosis without evidence of d iverticulitis or other significant abnormalities. APPENDIX: Not visualized. PERITONEUM: No free fluid. No free air. No fluid collection. LYMPH NODES: No significant adenopathy. AORTA / ARTERIES: The aorta is normal in caliber with moderate generalized atherosclerosis. IVC / VEINS: No significant abnormality. URINARY BLADDER: No significant abnormality. REPRODUCTIVE ORGANS: The prostate gland is mildly calcified and enlarged, measuring 5.2 x 4.0 cm. ADDITIONAL FINDINGS: None. SKELETAL SYSTEM: No acute abnormalities are seen. The bones are demineralized with severe degenerativ e changes noted along the spine and right hip. A left hip arthroplasty is unremarkable. IMPRESSION: 1. No acute abnormality to explain the patient's pain. 2. Additional findings as above. Signer Name: Anand Watson MD Signed: 08/12/2020 4:47 PM Workstation Name: [id number]
[2020-08-12] MEDS ORDERED: IPRATROPIUM/ALBUTEROL SULFATE 3 ML AMPUL.NEB IH ONE (20:13)
[2020-08-12] MEDS ORDERED: MORPHINE 2 MG/1 ML INJ IV ONE (20:35)
[2020-08-12] MEDS ORDERED: LORazepam 2 MG/ML VIAL IV ONE (20:35)
[2020-08-12 21:27] VITALS: BP 112/60
== END 2020-08-12 22:34 | disposition home or self-care (01) ==
LOC: ED 11:52 → 4A 17:08
PROVIDERS: ADMIT Internal Medicine; ATTEND Internal Medicine
DX: K59.00 Constipation, unspecified (principal); F32.9 Major depressive disorder, single episode, unspecified; F03.90 Unspecified dementia, unspecified severity, without behavioral disturbance, psychotic disturbance, mood disturbance, and anxiety; J44.9 Chronic obstructive pulmonary disease, unspecified; Z79.02 Long term (current) use of antithrombotics/antiplatelets; Z79.51 Long term (current) use of inhaled steroids; Z79.899 Other long term (current) drug therapy
CPT/HCPCS: 36415; 71045; 74176; 80048; 80076; 83690; 85025; 96374; 96375; 96376; 99285; G0378; J2060; J2270; J2405

== ENCOUNTER 2020-08-15 19:33 | Observation (INO) | payer MEDICARE ==
--- NOTE | 2020-08-15 21:21 | Emergency Department Report ---
ED Abdominal Pain HPI - General Chief Complaint: Abdominal Pain Stated Complaint: ABDOMINAL PAIN PUI?: No Time Seen by Provider: 08/15/20 21:05 Source: patient, EMS Mode of arrival: Ambulatory Limitations: Other - History of Present Illness Initial Comments: Patient is an 89-year-old male who presents emergency room for abdominal pain. Patient presents from a personal [place] [facility]. Report received from EMS. EMS states that the caregiver stated that the patient has been grabbing his right abdominal region and screaming out. Patient is noncommunicative. Patient unable to formulate words or make his needs known. Patient unable to answer questions. EMS states the patient has history of dementia, nonverbal, CHF, hypertension. MD Complaint: abdominal pain -: Sudden - Related Data Home Medications Medication Instructions Recorded Confirmed Last Taken Albuterol Sulfate [Ventolin HFA] 2 puff IH PRN PRN 09/20/17 06/09/20 Unknown Ergocalciferol [Vitamin D2] 1 cap PO 2XW 09/20/17 06/09/20 Unknown Previous Rx's Medication Instructions Recorded Last Taken Type ALBUTEROL NEB's [Proventil 0.083% 2.5 mg IH Q3HRT PRN #30 nebu 09/24/17 Unknown Rx NEBS] Acetaminophen [Acetaminophen TAB] 650 mg PO Q4H PRN #30 tablet 09/24/17 Unknown Rx Mirtazapine [Remeron 30mg TAB] 30 mg PO QHS PRN #30 tablet 09/24/17 Unknown Rx levoFLOXacin [Levaquin TAB] 500 mg PO Q24HR #5 tablet 09/24/17 Unknown Rx Famotidine [Pepcid] 40 mg PO QHS #10 tablet 07/21/18 Unknown Rx diphenhydrAMINE [Benadryl CAP] 25 mg PO Q6HR PRN #12 capsule 07/21/18 Unknown Rx Aspirin EC [Halfprin EC] 81 mg PO QDAY #100 tablet. 06/10/20 Unknown Rx AtorvaSTATin [Lipitor] 40 mg PO QHS #30 tablet 06/10/20 Unknown Rx Clopidogrel [Plavix] 75 mg PO QDAY #30 tablet 06/10/20 Unknown Rx ISOSORBIDE MONOnitrate [Imdur ER] 30 mg PO QDAY #30 tablet 06/10/20 Unknown Rx Ipratropium/Albuterol Sulfate 1 ampul IH DAILY #50 ampul.neb 06/10/20 Unknown Rx [DUONEB *Not for PRN Use*] Losartan [Cozaar] 25 mg PO QDAY #30 tablet 06/10/20 Unknown Rx Testosterone [Androderm] 1 each TD DAILY 06/10/20 Unknown Rx Tiotropium Br/Olodaterol HCl 1 puff IH DAILY #1 06/10/20 Unknown Rx [Stiolto Respimat Inhal [place]] carvediloL [Coreg] 3.125 mg PO BID #60 tablet 06/10/20 Unknown Rx donepeziL [Aricept] 5 mg PO DAILY #30 tablet 06/10/20 Unknown Rx predniSONE 10 mg PO QDAY #30 tablet 06/10/20 Unknown Rx Docusate Sodium [Colace] 100 mg PO BID PRN #60 capsule 08/12/20 Unknown Rx Lactulose 10 gm PO DAILY PRN #60 ml 08/12/20 Unknown Rx Sodium Phosphate,[place]-Dibasic 118 ml RC ONCE #1 enema 08/12/20 Unknown Rx [Fleet Enema] Allergies Allergy/AdvReac Type Severity Reaction Status Date / Time haloperidol [From Haldol] Allergy Unknown Verified 09/30/17 12:34 Penicillins Allergy Itching Verified 11/07/13 00:39 shellfish derived Allergy Unknown Verified 09/30/17 12:34 ED Review of Systems ROS: Stated complaint: ABDOMINAL PAIN Other details as noted in HPI Comment: Unobtainable due to pts medical conditions ED Past Medical Hx - Past Medical History Previous Medical History?: Yes Hx Psychiatric Treatment: Yes (Depression) Hx COPD: Yes Hx Dementia: Yes - Surgical History Past Surgical History?: Yes Additional Surgical History: Back surgery in 2008 - Family History Family history: no significant - Social History Smoking Status: Never Smoker Substance Use Type: None - Medications Home Medications: Home Medications Medication Instructions Recorded Confirmed Last Taken Type Albuterol Sulfate [Ventolin HFA] 2 puff IH PRN PRN 09/20/17 06/09/20 Unknown History Ergocalciferol [Vitamin D2] 1 cap PO 2XW 09/20/17 06/09/20 Unknown History ALBUTEROL NEB's [Proventil 0.083% 2.5 mg IH Q3HRT PRN #30 nebu 09/24/17 06/09/20 Unknown Rx NEBS] Acetaminophen [Acetaminophen TAB] 650 mg PO Q4H PRN #30 tablet 09/24/17 06/09/20 Unknown Rx Mirtazapine [Remeron 30mg TAB] 30 mg PO QHS PRN #30 tablet 09/24/17 06/09/20 Unknown Rx levoFLOXacin [Levaquin TAB] 500 mg PO Q24HR #5 tablet 09/24/17 06/09/20 Unknown Rx Famotidine [Pepcid] 40 mg PO QHS #10 tablet 07/21/18 06/09/20 Unknown Rx diphenhydrAMINE [Benadryl CAP] 25 mg PO Q6HR PRN #12 capsule 07/21/18 06/09/20 Unknown Rx Aspirin EC [Halfprin EC] 81 mg PO QDAY #100 tablet. 06/10/20 Unknown Rx AtorvaSTATin [Lipitor] 40 mg PO QHS #30 tablet 06/10/20 Unknown Rx Clopidogrel [Plavix] 75 mg PO QDAY #30 tablet 06/10/20 Unknown Rx ISOSORBIDE MONOnitrate [Imdur ER] 30 mg PO QDAY #30 tablet 06/10/20 Unknown Rx Ipratropium/Albuterol Sulfate 1 ampul IH DAILY #50 ampul.neb 06/10/20 Unknown Rx [DUONEB *Not for PRN Use*] Losartan [Cozaar] 25 mg PO QDAY #30 tablet 06/10/20 Unknown Rx Testosterone [Androderm] 1 each TD DAILY 06/10/20 Unknown Rx Tiotropium Br/Olodaterol HCl 1 puff IH DAILY #1 06/10/20 Unknown Rx [Stiolto Respimat Inhal [place]] carvediloL [Coreg] 3.125 mg PO BID #60 tablet 06/10/20 Unknown Rx donepeziL [Aricept] 5 mg PO DAILY #30 tablet 06/10/20 Unknown Rx predniSONE 10 mg PO QDAY #30 tablet 06/10/20 Unknown Rx Docusate Sodium [Colace] 100 mg PO BID PRN #60 capsule 08/12/20 Unknown Rx Lactulose 10 gm PO DAILY PRN #60 ml 08/12/20 Unknown Rx Sodium Phosphate,[place]-Dibasic 118 ml RC ONCE #1 enema 08/12/20 Unknown Rx [Fleet Enema] ED Physical Exam - General Limitations: Other General appearance: alert, in no apparent distress - Head Head exam: Present: atraumatic, normocephalic - Eye Eye exam: Present: normal appearance, PERRL Pupils: Present: normal accommodation - ENT ENT exam: Present: mucous membranes moist - Neck Neck exam: Present: normal inspection - Respiratory Respiratory exam: Present: normal lung sounds bilaterally. Absent: respiratory distress, wheezes, rales - Cardiovascular Cardiovascular Exam: Present: regular rate, normal rhythm. Absent: systolic murmur, diastolic murmur, rubs, gallop - GI/Abdominal GI/Abdominal exam: Present: soft, normal bowel sounds. Absent: distended, tenderness, guarding - Rectal Rectal exam: Present: deferred - Extremities Exam Extremities exam: Present: normal inspection - Back Exam Back exam: Present: normal inspection - Neurological Exam Neurological exam: Present: alert, altered - Expanded Neurological Exam Expanded Best Eye Response (Isabella): (4) open spontaneously Best Motor Response (Isabella): (5) localizes to pain Best Verbal Response (Isabella): (2) incomprehsible sounds [place] Total: 11 - Skin Skin exam: Present: warm, dry, intact, normal color. Absent: rash ED Course Vital Signs 08/15/20 08/15/20 08/15/20 19:33 20:58 21:00 Temperature 98.1 F Pulse Rate 62 59 L Respiratory 17 24 Rate Blood Pressure 128/72 Blood Pressure 123/55 [Right] O2 Sat by Pulse 99 98 97 Oximetry 08/15/20 08/15/20 08/15/20 22:00 22:20 23:04 Temperature Pulse Rate 58 L 55 L Respiratory 18 20 Rate Blood Pressure 113/64 120/54 120/54 Blood Pressure [Right] O2 Sat by Pulse 96 96 96 Oximetry 08/15/20 08/16/20 08/16/20 23:20 00:00 01:00 Temperature Pulse Rate 67 62 67 Respiratory 17 15 20 Rate Blood Pressure 113/64 130/49 142/77 Blood Pressure [Right] O2 Sat by Pulse 96 96 Oximetry 08/16/20 03:28 Temperature 97.9 F Pulse Rate 61 Respiratory 24 Rate Blood Pressure Blood Pressure 147/87 [Right] O2 Sat by Pulse 100 Oximetry - Reevaluation(s) Reevaluation #1: No change in exam. Patient's lungs are clear. 08/15/20 22:54 Reevaluation #2: Patient admitted to the hospital 08/16/20 00:04 - Consultations Consultation #1: Hospitalist consulted for admission. Hospitalist to admit patient. 08/16/20 00:05 ED Medical Decision Making - Lab Data Result diagrams: 08/15/20 21:25 08/15/20 21:25 - Radiology Data Radiology results: report reviewed CT ABDOMEN AND PELVIS WITH CONTRAST INDICATION: Right abdominal pain CONTRAST: 100 cc Omnipaque 300 IV COMPARISON: 08/12/[address] scans at this location are performed using CT dose reduction for ALARA by means of automated exposure control. FINDINGS: Mild loss of height centrally of the L1 vertebral body is unchanged. 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 Spinal stimulator is again seen in the thoracic region with artifact from a stimulator device in the lower abdomen on the left. Bibasilar atelectatic changes are again noted. The small right pleural effusion is again seen. No pneumoperitoneum is noted. Small probable cysts are noted in the liver. Small bilateral renal cysts and probable cysts are again seen. No other masses are seen. Moderate amount of stool is seen in the right colon suggesting constipation. F luid-filled slightly distended small bowel loops are noted with air-fluid levels but without wall t hickening and without dilatation. Mild colonic diverticulosis is seen without evidence of diverticu litis. All hiatal hernia is seen. Appendix is nonvisualized. IMPRESSION: 1. Small bowel fluid distention is nonspecific though can be seen with mild enteritis 2. Moderate amount of stool in the right colon suggests mild right sided constipation 3. Continued small right pleural effusion, slightly increased from prior study, with bibasilar atelectatic changes - Medical Decision Making Patient is a 89-year-old male that presents emergency room with altered mental status, abdominal pain. Patient is minimally responsive. Supposedly at baseline except for the yelling out. Patient not answering questions. Patient unable to give history. Patient had labs done which were essentially markable except for UTI. Patient had a CT scan of the abdomen which shows gastroenteri tis. Patient admitted to the hospital service for further evaluation treatment. Prior to admission, the patient was given Levaquin. Critical care time documented due to the multiple reassessments, prolonged time at the bedside, interpretation of diagnostics and labs. - Differential Diagnosis Abdominal pain, constipation, UTI, AMS, gastroenteritis Critical Care Time: Yes Critical care time in (mins) excluding proc time.: 35 Critical care attestation.: If time is entered above; I have spent that time in minutes in the direct care of this critically ill patient, excluding procedure time. Critical Care Time: 35 minutes ED Disposition Clinical Impression: Gastroenteritis UTI (urinary tract infection) Qualifiers: Urinary tract infection type: acute cystitis Hematuria presence: with hematuria Qualified Code(s): N30.01 - Acute cystitis with hematuria Abdominal pain Qualifiers: Abdominal location: unspecified location Qualified Code(s): R10.9 - Unspecified abdominal pain Altered mental state Qualifiers: Altered mental status type: unspecified Qualified Code(s): R41.82 - Altered mental status, unspecified Disposition: DC-09 OP ADMIT IP TO THIS HOSP Is pt being admited?: Yes Does the pt Need Aspirin: No Condition: Critical Time of Disposition: 00:05
[2020-08-15 21:34] LABS: Basophils # (Auto) 0.1 K/mm3 (0.0-0.1); Basophils % (Auto) 0.6 % (0.0-1.8); Eosinophils # (Auto) 0.4 K/mm3 (0.0-0.4); Hematocrit 34.4 % (35.5-45.6); Hemoglobin 12.2 gm/dl (11.8-15.2); Lymphocytes # (Auto) 1.6 K/mm3 (1.2-5.4); Lymphocytes % (Auto) 14.9 % (13.4-35.0); Mean Corpuscular HGB Conc 35 % (32-34); Mean Corpuscular Volume 93 fl (84-94); Monocytes % (Auto) 9.1 % (0.0-7.3); Platelet Count 294 K/mm3 (140-440); Red Blood Count 3.69 M/mm3 (3.65-5.03); Red Cell Distribution Width 13.7 % (13.2-15.2)
[2020-08-15 22:01] LABS: Bacteria,Urine 1+ /HPF (Negative); Bilirubin,Urine NEG (Negative); Blood,Urine NEG (Negative); Color,Urine Yellow (Yellow); Hyaline Casts,Urine 1 /LPF; Mucus,Urine FEW /HPF; Protein,Urine <15 mg/dL mg/dL (Negative)
[2020-08-15 22:15] LABS: Alanine Aminotransferase 8 units/L (7-56); Albumin 3.7 g/dL (3.9-5); BUN/Creatinine Ratio 18; Blood Urea Nitrogen 20 mg/dL (9-20); Hemolysis Index 36
--- NOTE | 2020-08-15 23:29 | Cat Scan Report ---
CT ABDOMEN AND PELVIS WITH CONTRAST INDICATION: Right abdominal pain CONTRAST: 100 cc Omnipaque 300 IV COMPARISON: 08/12/[address] scans at this location are performed using CT dose reduction for ALARA by means of automated e xposure control. FINDINGS: Mild loss of height centrally of the L1 vertebral body is unchanged. 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 Spinal stimulator is again seen in the thoracic region with artifact from a stimulator device in the lower abdomen on the left. Bibasilar atelectatic changes are again noted. The small right pleural effusion is again seen. No pneumoperitoneum is noted. Small probable cysts are noted in the liver. Small bilateral renal cyst s and probable cysts are again seen. No other masses are seen. Moderate amount of stool is seen in the right colon suggesting constipation. Fluid-filled slightly di stended small bowel loops are noted with air-fluid levels but without wall thickening and without dil atation. Mild colonic diverticulosis is seen without evidence of diverticulitis. All hiatal hernia is seen. Appendix is nonvisualized. IMPRESSION: 1. Small bowel fluid distention is nonspecific though can be seen with mild enteritis 2. Moderate amount of stool in the right colon suggests mild right sided constipation 3. Continued small right pleural effusion, slightly increased from prior study, with bibasilar atelec tatic changes Signer Name: Horacio Meléndez MD Signed: 08/15/2020 11:25 PM Workstation Name: [id number]
[2020-08-16] MEDS ORDERED: SODIUM CHLORIDE 0.9% 1000 ML 1,000 ML ONE (00:11)
[2020-08-16] MEDS ORDERED: ONDANSETRON 4 MG/2 ML INJ IV PRN (00:16)
[2020-08-16] MEDS ORDERED: ACETAMINOPHEN 325 MG TAB PO PRN (00:16)
[2020-08-16] MEDS ORDERED: ALBUTEROL 2.5 MG/3 ML NEBU IH PRN (00:18)
[2020-08-16] MEDS ORDERED: MIRTAZAPINE 30 MG TAB PO PRN (00:18)
[2020-08-16] MEDS ORDERED: DOCUSATE SODIUM 100 MG CAP PO PRN (00:18)
[2020-08-16] MEDS ORDERED: ALBUTEROL 8.5 GM MDI INHALATION IH PRN (00:18)
[2020-08-16] MEDS ORDERED: hydrALAZINE 20 MG/1 ML INJ IV PRN (00:21)
--- NOTE | 2020-08-16 00:27 | History and Physical Report ---
History of Present Illness Date of examination: 08/16/20 Date of admission: 08/16/20 Chief complaint: Abdominal pain History of present illness: 89-year-old male with past medical history of COPD , HTN, CHF and dementia was brought to the emergency room for abdominal pain for 1 to 2 days. EMS states that the caregiver stated that the patient has been grabbing his right abdominal region and screaming out. Patient is noncommunicative. Patient unable to formulate words or make his needs known. Patient unable to answer questions. In the emergency room patient is found to have UTI. Also patient CT scan of the abdomen showed a small bowel fluid distention is nonspecific though can be seen with mild enteritis #2 moderate amount of stool in the right colon suggest mild right-sided constipation. Continued a small right pleural effusion. Slightly increased from prior study with bibasilar atelectatic changes Past History Past Medical History: COPD (Dementia nonverbal), heart failure, hypertension, other (Dementia) Medications and Allergies Allergies Allergy/AdvReac Type Severity Reaction Status Date / Time haloperidol [From Haldol] Allergy Unknown Verified 09/30/17 12:34 Penicillins Allergy Itching Verified 11/07/13 00:39 shellfish derived Allergy Unknown Verified 09/30/17 12:34 Home Medications Medication Instructions Recorded Confirmed Last Taken Type Albuterol Sulfate [Ventolin HFA] 2 puff IH PRN PRN 09/20/17 06/09/20 Unknown History Ergocalciferol [Vitamin D2] 1 cap PO 2XW 09/20/17 06/09/20 Unknown History ALBUTEROL NEB's [Proventil 0.083% 2.5 mg IH Q3HRT PRN #30 nebu 09/24/17 06/09/20 Unknown Rx NEBS] Acetaminophen [Acetaminophen TAB] 650 mg PO Q4H PRN #30 tablet 09/24/17 06/09/20 Unknown Rx Mirtazapine [Remeron 30mg TAB] 30 mg PO QHS PRN #30 tablet 09/24/17 06/09/20 Unknown Rx levoFLOXacin [Levaquin TAB] 500 mg PO Q24HR #5 tablet 09/24/17 06/09/20 Unknown Rx Famotidine [Pepcid] 40 mg PO QHS #10 tablet 07/21/18 06/09/20 Unknown Rx diphenhydrAMINE [Benadryl CAP] 25 mg PO Q6HR PRN #12 capsule 07/21/18 06/09/20 Unknown Rx Aspirin EC [Halfprin EC] 81 mg PO QDAY #100 tablet. 06/10/20 Unknown Rx AtorvaSTATin [Lipitor] 40 mg PO QHS #30 tablet 06/10/20 Unknown Rx Clopidogrel [Plavix] 75 mg PO QDAY #30 tablet 06/10/20 Unknown Rx ISOSORBIDE MONOnitrate [Imdur ER] 30 mg PO QDAY #30 tablet 06/10/20 Unknown Rx Ipratropium/Albuterol Sulfate 1 ampul IH DAILY #50 ampul.neb 06/10/20 Unknown Rx [DUONEB *Not for PRN Use*] Losartan [Cozaar] 25 mg PO QDAY #30 tablet 06/10/20 Unknown Rx Testosterone [Androderm] 1 each TD DAILY 06/10/20 Unknown Rx Tiotropium Br/Olodaterol HCl 1 puff IH DAILY #1 06/10/20 Unknown Rx [Stiolto Respimat Inhal [place]] carvediloL [Coreg] 3.125 mg PO BID #60 tablet 06/10/20 Unknown Rx donepeziL [Aricept] 5 mg PO DAILY #30 tablet 06/10/20 Unknown Rx predniSONE 10 mg PO QDAY #30 tablet 06/10/20 Unknown Rx Docusate Sodium [Colace] 100 mg PO BID PRN #60 capsule 08/12/20 Unknown Rx Lactulose 10 gm PO DAILY PRN #60 ml 08/12/20 Unknown Rx Sodium Phosphate,[place]-Dibasic 118 ml RC ONCE #1 enema 08/12/20 Unknown Rx [Fleet Enema] Active Meds: Active Medications Levofloxacin/Dextrose (Levaquin 500mg/100ml) 500 mg in 100 mls @ 100 mls/hr IV ONCE ONE; Protocol Stop: 08/16/20 01:03 Review of Systems Gastrointestinal: abdominal pain Exam - Constitutional Vitals: Temp Pulse Resp BP Pulse Ox 98.1 F 62 15 130/49 96 08/15/20 19:33 08/16/20 00:00 08/16/20 00:00 08/16/20 00:00 08/16/20 00:00 General appearance: Present: no acute distress, well-nourished - EENT Eyes: Present: PERRL ENT: hearing intact, clear oral mucosa - Neck Neck: Present: supple, normal ROM - Respiratory Respiratory effort: normal Respiratory: bilateral: CTA - Cardiovascular Heart Sounds: Present: S1 & S2. Absent: rub, click - Extremities Extremities: pulses symmetrical, No edema Peripheral Pulses: within normal limits - Abdominal General gastrointestinal: Present: soft, non-tender, non-distended, normal bowel sounds Male genitourinary: Present: normal - Integumentary Integumentary: Present: clear, warm, dry - Musculoskeletal Musculoskeletal: gait normal, strength equal bilaterally - Psychiatric Psychiatric: other (Demented) - Neurologic Neurologic: CNII-XII intact, moves all extremities, other Results - Labs CBC & Chem 7: 08/15/20 21:25 08/15/20 21: Labs: Laboratory Last Values WBC 10.9 K/mm3 (4.5-11.0) 08/15/20 21: RBC 3.69 M/mm3 (3.65-5.03) 08/15/20 21: Hgb 12.2 gm/dl (11.8-15.2) 08/15/20 21: Hct 34.4 % (35.5-45.6) L 08/15/20 21: MCV 93 fl (84-94) 08/15/20 21: MCH 33 pg (28-32) H 08/15/20 21: MCHC 35 % (32-34) H 08/15/20 21: RDW 13.7 % (13.2-15.2) 08/15/20 21: Plt Count 294 K/mm3 (140-440) 08/15/20 21: Lymph % (Auto) 14.9 % (13.4-35.0) 08/15/20 21: [place] % (Auto) 9.1 % (0.0-7.3) H 08/15/20 21: Eos % (Auto) 4.0 % (0.0-4.3) 08/15/20 21: Baso % (Auto) 0.6 % (0.0-1.8) 08/15/20 21: Lymph # (Auto) 1.6 K/mm3 (1.2-5.4) 08/15/20 21:25 [place] # (Auto) 1.0 K/mm3 (0.0-0.8) H 08/15/20 21:25 Eos # (Auto) 0.4 K/mm3 (0.0-0.4) 08/15/20 21:25 Baso # (Auto) 0.1 K/mm3 (0.0-0.1) 08/15/20 21:25 Seg Neutrophils % 71.4 % (40.0-70.0) H 08/15/20 21:25 Seg Neutrophils # 7.8 K/mm3 (1.8-7.7) H 08/15/20 21:25 Sodium 142 mmol/L (137-145) 08/15/20 21:25 Potassium 4.8 mmol/L (3.6-5.0) 08/15/20 21:25 Chloride 107.5 mmol/L (98-107) H 08/15/20 21:25 Carbon Dioxide 25 mmol/L (22-30) 08/15/20 21:25 Anion Gap 14 mmol/L 08/15/20 21:25 BUN 20 mg/dL (9-20) 08/15/20 21:25 Creatinine 1.1 mg/dL (0.8-1.3) 08/15/20 21:25 Estimated GFR > 60 ml/min 08/15/20 21:25 BUN/Creatinine Ratio 18 % 08/15/20 21:25 Glucose 119 mg/dL (75-100) H 08/15/20 21:25 Calcium 9.0 mg/dL (8.4-10.2) 08/15/20 21:25 Total Bilirubin 0.80 mg/dL (0.1-1.2) 08/15/20 21:25 AST 16 units/L (5-40) 08/15/20 21:25 ALT 8 units/L (7-56) 08/15/20 21:25 Alkaline Phosphatase 85 units/L (35-129) 08/15/20 21:25 Total Protein 6.2 g/dL (6.3-8.2) L 08/15/20 21:25 Albumin 3.7 g/dL (3.9-5) L 08/15/20 21:25 Albumin/Globulin Ratio 1.5 % 08/15/20 21:25 Lipase 88 units/L (13-60) H 08/15/20 21:25 Urine Color Yellow (Yellow) 08/15/20 Unknown Urine Turbidity Slightly-cloudy (Clear) 08/15/20 Unknown Urine pH 5.0 (5.0-7.0) 08/15/20 Unknown Ur Specific [place] 1.013 (1.003-1.030) 08/15/20 Unknown Urine Protein <15 mg/dl mg/dL (Negative) 08/15/20 Unknown Urine Glucose (UA) Neg mg/dL (Negative) 08/15/20 Unknown Urine Ketones Neg mg/dL (Negative) 08/15/20 Unknown Urine Blood Neg (Negative) 08/15/20 Unknown Urine Nitrite Neg (Negative) 08/15/20 Unknown Urine Bilirubin Neg (Negative) 08/15/20 Unknown Urine Urobilinogen 2.0 mg/dL (<2.0) 08/15/20 Unknown Ur Leukocyte Esterase Lg (Negative) 08/15/20 Unknown Urine WBC (Auto) 42.0 /HPF (0.0-6.0) H 08/15/20 Unknown Urine RBC (Auto) 16.0 /HPF (0.0-6.0) 08/15/20 Unknown U Epithel Cells (Auto) < 1.0 /HPF (0-13.0) 08/15/20 Unknown Urine Bacteria (Auto) 1+ /HPF (Negative) 08/15/20 Unknown Hyaline Casts 1 /LPF 08/15/20 Unknown Urine Mucus Few /HPF 08/15/20 Unknown Urine Yeast (Budding) 2+ /HPF 08/15/20 Unknown - Imaging and Cardiology CT scan - abdomen: report reviewed Assessment and Plan VTE prophylaxis?: Chemical Plan of care discussed with patient/family: Yes - Patient Problems (1) Gastroenteritis Status: Acute Plan to address problem: Admit the patient to the medical telemetry put the patient on cardiac diet. Levaquin 750 mg IV daily and Flagyl 500 mg p.o. every 8 hours. Recheck CBC BMP in the morning. (2) Acute metabolic encephalopathy Status: Acute Plan to address problem: Most likely secondary to UTI and gastroenteritis. We will put the patient on Levaquin 750 mg IV daily and Flagyl 500 mg p.o. every 8 hours. We will monitor the patient closely (3) UTI (urinary tract infection) Status: Acute Qualifiers: Urinary tract infection type: acute cystitis Hematuria presence: with hematuria Qualified Code(s): N30.01 - Acute cystitis with hematuria Plan to address problem: Levaquin 750 mg IV daily. We do the blood culture urine culture. Recheck CBC in the morning (4) CHF (congestive heart failure) Status: Acute Plan to address problem: Stable we will continue the home medication. (5) COPD (chronic obstructive pulmonary disease) Status: Chronic Qualifiers: COPD type: unspecified COPD Qualified Code(s): J44.9 - Chronic obstructive pulmonary disease, unspecified Plan to address problem: Oxygen by nasal cannula 3 L/min. DuoNeb via nebulizer every 6 hours as needed. Albuterol by nebulizer every 4 hours as needed. We will monitor the patient closely (6) DVT prophylaxis Status: Acute Plan to address problem: Heparin 5000 units subcu every 8 hours for DVT prophylaxis. Pepcid 20 mg IV every 12 hours for GI prophylaxis. Patient is a full code
[2020-08-16] MEDS: HEPARIN 5,000 UNIT/1 ML VIAL SUB-Q SCH ×2 (05:43→15:09)
[2020-08-16] MEDS: metroNIDAZOLE 500 MG TAB PO SCH ×2 (05:45→15:10)
[2020-08-16] MEDS ORDERED: carvediloL 3.125 MG TAB PO SCH (08:00)
[2020-08-16] MEDS ORDERED: OLODATEROL HCL IH SCH (10:00)
[2020-08-16] MEDS ORDERED: CLOPIDOGREL 75 MG TAB PO SCH (10:00)
[2020-08-16] MEDS ORDERED: predniSONE 10 MG TAB PO SCH (10:00)
[2020-08-16] MEDS ORDERED: TIOTROPIUM BR IH SCH (10:00)
[2020-08-16] MEDS ORDERED: LOSARTAN 25 MG TAB PO SCH (10:00)
[2020-08-16] MEDS ORDERED: ASPIRIN EC 81 MG TAB PO SCH (10:00)
[2020-08-16] MEDS ORDERED: DONEPEZIL 5 MG TAB PO SCH (10:00)
[2020-08-16] MEDS ORDERED: IPRATROPIUM/ALBUTEROL SULFATE 3 ML AMPUL.NEB IH SCH (10:00)
[2020-08-16] MEDS ORDERED: FAMOTIDINE 20 MG/2 ML INJ IV SCH (10:00)
[2020-08-16] MEDS ORDERED: MAGNESIUM HYDROXIDE (MOM) ORAL LIQD UDC PO SCH (11:00)
--- NOTE | 2020-08-16 12:03 | Discharge Summary ---
Providers - Providers Date of Admission: 08/16/20 00:06 Attending physician: CHERIE REID MD Primary care physician: [employer] Hospitalization Reason for admission: Altered mental status Condition: Stable Hospital course: 89-year-old male with past medical history of COPD , HTN, CHF and dementia was brought to the emergency room for abdominal pain for 1 to 2 days. EMS states that the caregiver stated that the patient has been grabbing his right abdominal region and screaming out. Patient is noncommunicative. Patient unable to formulate words or make his needs known. Patient unable to answer questions. In the emergency room patient is found to have UTI. Also patient CT scan of the abdomen showed a small bowel fluid distention is nonspecific though can be seen with mild enteritis #2 moderate amount of stool in the right colon suggest mild right-sided constipation. Continued a small right pleural effusion. Slightly increased from prior study with bibasilar atelectatic changes imaging studies were consistent with stool, When i called the general dentist/owner of the [facility] THEY STATED THAT THE PATIENT WAS COMPLAINING OF GENERALIZED PAIN, AND THAT THE patient has had normal bowel movement. This may be due to UTI induced confusion. Patient this morning is stable No new complaint. Patient will be treated with empiric antibiotic coverage and discharged on the same. This will also cover for the mild enteritis (1) Gastroenteritis Status: Acute Plan to address problem: Admit the patient to the medical telemetry put the patient on cardiac diet. Levaquin 750 mg IV daily and Flagyl 500 mg p.o. every 8 hours. Recheck CBC BMP in the morning. (2) Acute metabolic encephalopathy Status: Acute Plan to address problem: Most likely secondary to UTI and gastroenteritis. We will put the patient on Levaquin 750 mg IV daily and Flagyl 500 mg p.o. every 8 hours. We will monitor the patient closely (3) UTI (urinary tract infection) Status: Acute Qualifiers: Urinary tract infection type: acute cystitis Hematuria presence: with hematuria Qualified Code(s): N30.01 - Acute cystitis with hematuria Plan to address problem: Levaquin 750 mg IV daily. We do the blood culture urine culture. Recheck CBC in the morning (4) CHF (congestive heart failure) Status: Acute Plan to address problem: Stable we will continue the home medication. (5) COPD (chronic obstructive pulmonary disease) Status: Chronic Qualifiers: COPD type: unspecified COPD Qualified Code(s): J44.9 - Chronic obstructive pulmonary disease, unspecified Plan to address problem: Oxygen by nasal cannula 3 L/min. DuoNeb via nebulizer every 6 hours as needed. Albuterol by nebulizer every 4 hours as needed. We will monitor the patient closely (6) acute on chronic metabolic encephalopathy likely secondary to UTI Disposition: [id number] TO HOME OR SELFCARE Final Discharge Diagnosis (Prints w/discharge instructions): Acute metabolic encephalopathy secondary to acute cystitis Time spent for discharge: 35-minute Core Measure Documentation - Palliative Care Palliative Care/ Comfort Measures: Not Applicable - Core Measures Any of the following diagnoses?: none Exam - Physical Exam Narrative exam: VITAL SIGNS: Reviewed. GENERAL: The patient appears normally developed, Vital signs as documented. HEAD: No signs of head trauma. EYES: Pupils are equal. Extraocular motions intact. EARS: Hearing grossly intact. MOUTH: Oropharynx is normal. NECK: No adenopathy, no JVD. CHEST: Chest with clear breath sounds bilaterally. No wheezes, rales, or rhonchi. CARDIAC: Regular rate and rhythm. S1 and S2, without murmurs, gallops, or rubs. VASCULAR: No Edema. Peripheral pulses normal and equal in all extremities. ABDOMEN: Device on the left mid quadrant of the abdomen. Soft, non tender and non distended. No rebound or guarding, and no masses palpated. Bowel Sounds normal. MUSCULOSKELETAL: Good range of motion of all major joints. Extremities without clubbing, cyanosis or edema. NEUROLOGIC EXAM: Alert, awake unable to assess orientation as patient mumbles words and not talking although follows some commands. No focal sensory or strength deficits. PSYCHIATRIC: Mood normal. SKIN: Mild skin excoriations. Detail exam as documented in skin assessment - Constitutional Vitals: Temp Pulse Resp BP Pulse Ox 98.8 F 87 20 121/60 96 08/16/20 08:00 08/16/20 10:46 08/16/20 10:35 08/16/20 10:46 08/16/20 10:00 Plan Activity: advance as tolerated, fall precautions Diet: low fat Special Instructions: record daily BP diary Follow up with: LEANNA VALLES MD [Primary Care Provider] - 7 Days CHRIS GARCIA MD [Staff Physician] - 7 Days Prescriptions: metroNIDAZOLE [Flagyl TAB] 500 mg PO Q8HR #15 tablet levoFLOXacin [Levaquin TAB] 500 mg PO Q24H #5 tablet traMADoL [Ultram] 50 mg PO Q6HR PRN #10 tablet PRN Reason: Pain
[2020-08-16 17:02] VITALS: BP 113/62
[2020-08-16] MEDS ORDERED: FAMOTIDINE 20 MG TAB PO SCH (22:00)
[2020-08-17] MEDS ORDERED: levoFLOXacin 500 MG TAB PO SCH (06:00)
== END 2020-08-16 17:12 | disposition home or self-care (01) ==
LOC: ED 19:33 → 3A 08-16 00:06
PROVIDERS: ADMIT Hospitalist; ATTEND Internal Medicine
DX: K52.9 Noninfective gastroenteritis and colitis, unspecified (principal); G93.41 Metabolic encephalopathy; I11.0 Hypertensive heart disease with heart failure; I50.9 Heart failure, unspecified; J44.9 Chronic obstructive pulmonary disease, unspecified; N30.01 Acute cystitis with hematuria; F32.9 Major depressive disorder, single episode, unspecified; F03.90 Unspecified dementia, unspecified severity, without behavioral disturbance, psychotic disturbance, mood disturbance, and anxiety; R41.82 Altered mental status, unspecified; Z79.899 Other long term (current) drug therapy; Z98.890 Other specified postprocedural states; Z79.82 Long term (current) use of aspirin
CPT/HCPCS: 36415; 74177; 80053; 81001; 83690; 85025; 87086; 94640; 96365; 96372; 96375; 99291; G0378; J0360; J1644; J1956; J7030; J7512; Q9967

== ENCOUNTER 2020-08-26 11:17 | Emergency (ER) | payer MEDICARE ==
--- NOTE | 2020-08-26 12:32 | Emergency Department Report ---
ED General Adult HPI - General Chief complaint: Altered Mental Status Stated complaint: ALTERED MENTAL STATUS PUI?: No Time Seen by Provider: 08/26/20 12:27 Source: patient, EMS ( EMS documentation not available at time of chart dictation ), RN notes reviewed, old records reviewed Mode of arrival: Stretcher Limitations: Other (Dementia) - History of Present Illness Initial comments: The patient was evaluated in the emergency department for symptoms described in the history of present illness. He/she was evaluated in the context of the global COVID-19 pandemic, which necessitated consideration that the patient might be at risk for infection with the virus that causes COVID-19. Institutional protocols and algorithms that pertain to the evaluation of patients at risk for COVID-19 are in a state of rapid change based on information released by regulatory bodies including the CDC and federal and state organizations. These policies and algorithms were followed during the patient's care in the emergency department. Please note that these policies, procedures and recommendations changed on a rapid basis. This is an 89-year-old gentleman. He has a past medical history of hypertension, dementia, and elevated troponin in the past. He is brought to the hospital by emergency medical services. EMS documentation not available at this time for my review. History obtained by review of old medical records, and by [facility] nursing documentation. Patient was brought to the hospital today because a complaint of generalized weakness, decreased responsiveness, and possible shaking in his upper extremities. It is not known how long the symptoms lasted for. It is not known with a radiated anywhere. He does not know if they had exacerbating or relieving factors. In the emergency room, the patient has no complaints. The patient is a poor historian. Patient not able to answer most open-ended or close ended questions. Patient indicated that he is not having physical pain. The patient follows commands. No additional history is available at this time -: unknown Quality: other Consistency: other Improves with: other Worsens with: other Associated Symptoms: other Treatments Prior to Arrival: other - Related Data Home Medications Medication Instructions Recorded Confirmed Last Taken Albuterol Sulfate [Ventolin HFA] 2 puff IH PRN PRN 09/20/17 08/16/20 Unknown Ergocalciferol [Vitamin D2] 1 cap PO 2XW 09/20/17 08/16/20 Unknown Previous Rx's Medication Instructions Recorded Last Taken Type ALBUTEROL NEB's [Proventil 0.083% 2.5 mg IH Q3HRT PRN #30 nebu 09/24/17 Unknown Rx NEBS] Acetaminophen [Acetaminophen TAB] 650 mg PO Q4H PRN #30 tablet 09/24/17 Unknown Rx Mirtazapine [Remeron 30mg TAB] 30 mg PO QHS PRN #30 tablet 09/24/17 Unknown Rx Famotidine [Pepcid] 40 mg PO QHS #10 tablet 07/21/18 Unknown Rx diphenhydrAMINE [Benadryl CAP] 25 mg PO Q6HR PRN #12 capsule 07/21/18 Unknown Rx Aspirin EC [Halfprin EC] 81 mg PO QDAY #100 tablet. 06/10/20 Unknown Rx AtorvaSTATin [Lipitor] 40 mg PO QHS #30 tablet 06/10/20 Unknown Rx Clopidogrel [Plavix] 75 mg PO QDAY #30 tablet 06/10/20 Unknown Rx ISOSORBIDE MONOnitrate [Imdur ER] 30 mg PO QDAY #30 tablet 06/10/20 Unknown Rx Ipratropium/Albuterol Sulfate 1 ampul IH DAILY #50 ampul.neb 06/10/20 Unknown Rx [DUONEB *Not for PRN Use*] Losartan [Cozaar] 25 mg PO QDAY #30 tablet 06/10/20 Unknown Rx Testosterone [Androderm] 1 each TD DAILY 06/10/20 Unknown Rx Tiotropium Br/Olodaterol HCl 1 puff IH DAILY #1 06/10/20 Unknown Rx [Stiolto Respimat Inhal [place]] carvediloL [Coreg] 3.125 mg PO BID #60 tablet 06/10/20 Unknown Rx donepeziL [Aricept] 5 mg PO DAILY #30 tablet 06/10/20 Unknown Rx predniSONE 10 mg PO QDAY #30 tablet 06/10/20 Unknown Rx Docusate Sodium [Colace CAP] 100 mg PO BID PRN #60 capsule 08/12/20 Unknown Rx Lactulose 10 gm PO DAILY PRN #60 ml 08/12/20 Unknown Rx Sodium Phosphate,[place]-Dibasic 118 ml RC ONCE #1 enema 08/12/20 Unknown Rx [Fleet Enema] levoFLOXacin [Levaquin TAB] 500 mg PO Q24H #5 tablet 08/16/20 Unknown Rx metroNIDAZOLE [Flagyl TAB] 500 mg PO Q8HR #15 tablet 08/16/20 Unknown Rx Allergies Allergy/AdvReac Type Severity Reaction Status Date / Time haloperidol [From Haldol] Allergy Unknown Verified 09/30/17 12:34 Penicillins Allergy Itching Verified 11/07/13 00:39 shellfish derived Allergy Unknown Verified 09/30/17 12:34 ED Review of Systems ROS: Stated complaint: ALTERED MENTAL STATUS Other details as noted in HPI Comment: Unobtainable due to pts medical conditions (Patient is demented) Neurological: weakness, confusion ED Past Medical Hx - Past Medical History Hx Hypertension: Yes Hx Congestive Heart Failure: Yes Hx Psychiatric Treatment: Yes (Depression) Hx COPD: Yes Hx Dementia: Yes - Surgical History Additional Surgical History: Back surgery in 2008 - Social History Smoking Status: Never Smoker Substance Use Type: None - Medications Home Medications: Home Medications Medication Instructions Recorded Confirmed Last Taken Type Albuterol Sulfate [Ventolin HFA] 2 puff IH PRN PRN 09/20/17 08/16/20 Unknown History Ergocalciferol [Vitamin D2] 1 cap PO 2XW 09/20/17 08/16/20 Unknown History ALBUTEROL NEB's [Proventil 0.083% 2.5 mg IH Q3HRT PRN #30 nebu 09/24/17 08/16/20 Unknown Rx NEBS] Acetaminophen [Acetaminophen TAB] 650 mg PO Q4H PRN #30 tablet 09/24/17 08/16/20 Unknown Rx Mirtazapine [Remeron 30mg TAB] 30 mg PO QHS PRN #30 tablet 09/24/17 08/16/20 Unknown Rx Famotidine [Pepcid] 40 mg PO QHS #10 tablet 07/21/18 08/16/20 Unknown Rx diphenhydrAMINE [Benadryl CAP] 25 mg PO Q6HR PRN #12 capsule 07/21/18 08/16/20 Unknown Rx Aspirin EC [Halfprin EC] 81 mg PO QDAY #100 tablet. 06/10/20 08/16/20 Unknown Rx AtorvaSTATin [Lipitor] 40 mg PO QHS #30 tablet 06/10/20 08/16/20 Unknown Rx Clopidogrel [Plavix] 75 mg PO QDAY #30 tablet 06/10/20 08/16/20 Unknown Rx ISOSORBIDE MONOnitrate [Imdur ER] 30 mg PO QDAY #30 tablet 06/10/20 08/16/20 Unknown Rx Ipratropium/Albuterol Sulfate 1 ampul IH DAILY #50 ampul.neb 06/10/20 08/16/20 Unknown Rx [DUONEB *Not for PRN Use*] Losartan [Cozaar] 25 mg PO QDAY #30 tablet 06/10/20 08/16/20 Unknown Rx Testosterone [Androderm] 1 each TD DAILY 06/10/20 08/16/20 Unknown Rx Tiotropium Br/Olodaterol HCl 1 puff IH DAILY #1 06/10/20 08/16/20 Unknown Rx [Stiolto Respimat Inhal [place]] carvediloL [Coreg] 3.125 mg PO BID #60 tablet 06/10/20 08/16/20 Unknown Rx donepeziL [Aricept] 5 mg PO DAILY #30 tablet 06/10/20 08/16/20 Unknown Rx predniSONE 10 mg PO QDAY #30 tablet 06/10/20 08/16/20 Unknown Rx Docusate Sodium [Colace CAP] 100 mg PO BID PRN #60 capsule 08/12/20 08/16/20 Unknown Rx Lactulose 10 gm PO DAILY PRN #60 ml 08/12/20 08/16/20 Unknown Rx Sodium Phosphate,[place]-Dibasic 118 ml RC ONCE #1 enema 08/12/20 08/16/20 Unknown Rx [Fleet Enema] levoFLOXacin [Levaquin TAB] 500 mg PO Q24H #5 tablet 08/16/20 Unknown Rx metroNIDAZOLE [Flagyl TAB] 500 mg PO Q8HR #15 tablet 08/16/20 Unknown Rx ED Physical Exam - General Limitations: Other (Dementia) General appearance: in no apparent distress - Head Head exam: Present: atraumatic, normocephalic - Eye Eye exam: Present: normal appearance, EOMI. Absent: nystagmus - ENT ENT exam: Present: normal exam, normal orophraynx, mucous membranes moist, normal external ear exam - Neck Neck exam: Present: normal inspection, full ROM. Absent: tenderness, meningismus - Respiratory Respiratory exam: Present: rales, rhonchi, other (Faint rhonchi, rales noted in the bilateral lung base). Absent: respiratory distress - Cardiovascular Cardiovascular Exam: Present: normal rhythm, bradycardia, normal heart sounds. Absent: tachycardia, irregular rhythm, systolic murmur, diastolic murmur, rubs, gallop - GI/Abdominal GI/Abdominal exam: Present: soft. Absent: distended, tenderness, guarding, rebound, rigid, pulsatile mass - Rectal Rectal exam: Present: deferred - Extremities Exam Extremities exam: Present: normal inspection (Chronic venous stasis changes noted in the bilateral lower extremity), full ROM, pedal edema (1-2+ edema bilateral lower extremity), other (2+ pulses noted in the bilateral upper and lower extremities. There is no palpable cord. negative Homans sign. Muscular compartments are soft. The pelvis is stable.) - Back Exam Back exam: Present: normal inspection. Absent: tenderness, CVA tenderness (R), CVA tenderness (L), paraspinal tenderness, vertebral tenderness - Neurological Exam Neurological exam: Present: other (Patient is awake. Patient follows commands. There is no facial droop. Moving 4 extremities. Sensation is intact to light touch in 4 extremities) - Psychiatric Psychiatric exam: Present: flat affect - Skin Skin exam: Present: warm, dry, intact ED Course Vital Signs 08/26/20 08/26/20 08/26/20 12:00 14:07 14:12 Temperature 97.8 F 97.8 F 97.8 F Pulse Rate 50 L 50 L 50 L Respiratory 18 16 18 Rate Blood Pressure 150/78 Blood Pressure 150/72 [Right] O2 Sat by Pulse 92 100 94 Oximetry - Reevaluation(s) Reevaluation #1: 08/26/20 13:30 Differential diagnosis, including but not limited to: Dementia, pneumonia, urinary tract infection, intracranial mass lesion, congestive heart failure, CHF Assessment and plan: 89-year-old gentleman, referred to the emergency room because of nonspecific shaking in hands, and suspicion for altered mental status. At the moment, the patient is awake, moving 4 extremities, protecting airway, does not appear to be in any acute distress, is hemodynamically stable. Check appropriate laboratory studies, EKG, noncontrast CT scan of the brain, noncontrast CT scan of the chest, obtain rectal temperature and urinalysis, and reassess. 08/26/20 14:[address] scan of the brain negative for acute findings. Patient does not have a fever rectally. Urinalysis unremarkable Reevaluation #2: 08/26/20 15:24 Laboratory studies unremarkable. Patient satting 93- 94% on room air. CT chest with chronic findings. No convulsive activity noted. Patient moving 4 extremities in no acute distress. Suspect that patient is experiencing natural history of underlying COPD, without acute exacerbation at this time, no significant wheezing noted examination, and no convulsive activity noted. The patient is medically suitable to follow-up with his outpatient primary care doctor. Vital Signs 08/26/20 08/26/20 08/26/20 12:00 14:07 14:12 Temperature 97.8 F 97.8 F 97.8 F Pulse Rate 50 L 50 L 50 L Respiratory 18 16 18 Rate Blood Pressure 150/78 Blood Pressure 150/72 [Right] O2 Sat by Pulse 92 100 94 Oximetry Lab Results 08/26/20 08/26/20 08/26/20 Range/Units 12:52 12:52 12:52 WBC (4.5-11.0) K/mm3 RBC (3.65-5.03) M/mm3 Hgb (11.8-15.2) gm/dl Hct (35.5-45.6) % MCV (84-94) fl MCH (28-32) pg MCHC (32-34) % RDW (13.2-15.2) % Plt Count (140-440) K/mm3 PT 14.3 (12.2-14.9) Sec. INR 1.06 (0.87-1.13) Sodium 140 (137-145) mmol/L Potassium 4.4 (3.6-5.0) mmol/L Chloride 105.2 (98-107) mmol/L Carbon Dioxide 21 L (22-30) mmol/L Anion Gap 18 mmol/L BUN 20 (9-20) mg/dL Creatinine 0.9 (0.8-1.3) mg/dL Estimated GFR > 60 ml/min BUN/Creatinine Ratio 22 % Glucose 85 (75-100) mg/dL Calcium 9.4 (8.4-10.2) mg/dL Magnesium (1.7-2.3) mg/dL Total Bilirubin 0.70 (0.1-1.2) mg/dL AST 19 (5-40) units/L ALT 9 (7-56) units/L Alkaline Phosphatase 139 H (35-129) units/L Ammonia (25-60) umol/L Total Creatine Kinase (55-170) units/L Troponin T (0.00-0.029) ng/mL NT-Pro-B Natriuret Pep (0-900) pg/mL Total Protein 7.1 (6.3-8.2) g/dL Albumin 4.0 (3.9-5) g/dL Albumin/Globulin Ratio 1.3 % Urine Color (Yellow) Urine Turbidity (Clear) Urine pH (5.0-7.0) Ur Specific [place] (1.003-1.030) Urine Protein (Negative) mg/dL Urine Glucose (UA) (Negative) mg/dL Urine Ketones (Negative) mg/dL Urine Blood (Negative) Urine Nitrite (Negative) Urine Bilirubin (Negative) Urine Urobilinogen (<2.0) mg/dL Ur Leukocyte Esterase (Negative) Urine WBC (Auto) (0.0-6.0) /HPF Urine RBC (Auto) (0.0-6.0) /HPF U Epithel Cells (Auto) (0-13.0) /HPF Urine Mucus /HPF Salicylates (2.8-20.0) mg/dL Acetaminophen 5.0 L (10.0-30.0) ug/mL Plasma/Serum Alcohol (0-0.07) % 08/26/20 08/26/20 08/26/20 Range/Units 12:52 12:52 12:52 WBC (4.5-11.0) K/mm3 RBC (3.65-5.03) M/mm3 Hgb (11.8-15.2) gm/dl Hct (35.5-45.6) % MCV (84-94) fl MCH (28-32) pg MCHC (32-34) % RDW (13.2-15.2) % Plt Count (140-440) K/mm3 PT (12.2-14.9) Sec. INR (0.87-1.13) Sodium (137-145) mmol/L Potassium (3.6-5.0) mmol/L Chloride (98-107) mmol/L Carbon Dioxide (22-30) mmol/L Anion Gap mmol/L BUN (9-20) mg/dL Creatinine (0.8-1.3) mg/dL Estimated GFR ml/min BUN/Creatinine Ratio % Glucose (75-100) mg/dL Calcium (8.4-10.2) mg/dL Magnesium 2.20 (1.7-2.3) mg/dL Total Bilirubin (0.1-1.2) mg/dL AST (5-40) units/L ALT (7-56) units/L Alkaline Phosphatase (35-129) units/L Ammonia 22.0 L (25-60) umol/L Total Creatine Kinase 118 (55-170) units/L Troponin T < 0.010 (0.00-0.029) ng/mL NT-Pro-B Natriuret Pep (0-900) pg/mL Total Protein (6.3-8.2) g/dL Albumin (3.9-5) g/dL Albumin/Globulin Ratio % Urine Color (Yellow) Urine Turbidity (Clear) Urine pH (5.0-7.0) Ur Specific [place] (1.003-1.030) Urine Protein (Negative) mg/dL Urine Glucose (UA) (Negative) mg/dL Urine Ketones (Negative) mg/dL Urine Blood (Negative) Urine Nitrite (Negative) Urine Bilirubin (Negative) Urine Urobilinogen (<2.0) mg/dL Ur Leukocyte Esterase (Negative) Urine WBC (Auto) (0.0-6.0) /HPF Urine RBC (Auto) (0.0-6.0) /HPF U Epithel Cells (Auto) (0-13.0) /HPF Urine Mucus /HPF Salicylates (2.8-20.0) mg/dL Acetaminophen (10.0-30.0) ug/mL Plasma/Serum Alcohol < 0.01 (0-0.07) % 08/26/20 08/26/20 08/26/20 Range/Units 12:52 12:52 14:27 WBC 12.3 H (4.5-11.0) K/mm3 RBC 3.93 (3.65-5.03) M/mm3 Hgb 13.3 (11.8-15.2) gm/dl Hct 37.8 (35.5-45.6) % MCV 96 H (84-94) fl MCH 34 H (28-32) pg MCHC 35 H (32-34) % RDW 14.3 (13.2-15.2) % Plt Count 291 (140-440) K/mm3 PT (12.2-14.9) Sec. INR (0.87-1.13) Sodium (137-145) mmol/L Potassium (3.6-5.0) mmol/L Chloride (98-107) mmol/L Carbon Dioxide (22-30) mmol/L Anion Gap mmol/L BUN (9-20) mg/dL Creatinine (0.8-1.3) mg/dL Estimated GFR ml/min BUN/Creatinine Ratio % Glucose (75-100) mg/dL Calcium (8.4-10.2) mg/dL Magnesium (1.7-2.3) mg/dL Total Bilirubin (0.1-1.2) mg/dL AST (5-40) units/L ALT (7-56) units/L Alkaline Phosphatase (35-129) units/L Ammonia (25-60) umol/L Total Creatine Kinase (55-170) units/L Troponin T (0.00-0.029) ng/mL NT-Pro-B Natriuret Pep 1431 H (0-900) pg/mL Total Protein (6.3-8.2) g/dL Albumin (3.9-5) g/dL Albumin/Globulin Ratio % Urine Color (Yellow) Urine Turbidity (Clear) Urine pH (5.0-7.0) Ur Specific [place] (1.003-1.030) Urine Protein (Negative) mg/dL Urine Glucose (UA) (Negative) mg/dL Urine Ketones (Negative) mg/dL Urine Blood (Negative) Urine Nitrite (Negative) Urine Bilirubin (Negative) Urine Urobilinogen (<2.0) mg/dL Ur Leukocyte Esterase (Negative) Urine WBC (Auto) (0.0-6.0) /HPF Urine RBC (Auto) (0.0-6.0) /HPF U Epithel Cells (Auto) (0-13.0) /HPF Urine Mucus /HPF Salicylates < 0.3 L (2.8-20.0) mg/dL Acetaminophen (10.0-30.0) ug/mL Plasma/Serum Alcohol (0-0.07) % // Range/Units Unknown WBC (4.5-11.0) K/mm3 RBC (3.65-5.03) M/mm3 Hgb (11.8-15.2) gm/dl Hct (35.5-45.6) % MCV (84-94) fl MCH (28-32) pg MCHC (32-34) % RDW (13.2-15.2) % Plt Count (140-440) K/mm3 PT (12.2-14.9) Sec. INR (0.87-1.13) Sodium (137-145) mmol/L Potassium (3.6-5.0) mmol/L Chloride (98-107) mmol/L Carbon Dioxide (22-30) mmol/L Anion Gap mmol/L BUN (9-20) mg/dL Creatinine (0.8-1.3) mg/dL Estimated GFR ml/min BUN/Creatinine Ratio % Glucose (75-100) mg/dL Calcium (8.4-10.2) mg/dL Magnesium (1.7-2.3) mg/dL Total Bilirubin (0.1-1.2) mg/dL AST (5-40) units/L ALT (7-56) units/L Alkaline Phosphatase (35-129) units/L Ammonia (25-60) umol/L Total Creatine Kinase (55-170) units/L Troponin T (0.00-0.029) ng/mL NT-Pro-B Natriuret Pep (0-900) pg/mL Total Protein (6.3-8.2) g/dL Albumin (3.9-5) g/dL Albumin/Globulin Ratio % Urine Color Yellow (Yellow) Urine Turbidity Clear (Clear) Urine pH 6.0 (5.0-7.0) Ur Specific [place] 1.012 (1.003-1.030) Urine Protein <15 mg/dl (Negative) mg/dL Urine Glucose (UA) Neg (Negative) mg/dL Urine Ketones Neg (Negative) mg/dL Urine Blood Neg (Negative) Urine Nitrite Neg (Negative) Urine Bilirubin Neg (Negative) Urine Urobilinogen < 2.0 (<2.0) mg/dL Ur Leukocyte Esterase Neg (Negative) Urine WBC (Auto) 2.0 (0.0-6.0) /HPF Urine RBC (Auto) 4.0 (0.0-6.0) /HPF U Epithel Cells (Auto) < 1.0 (0-13.0) /HPF Urine Mucus Few /HPF Salicylates (2.8-20.0) mg/dL Acetaminophen (10.0-30.0) ug/mL Plasma/Serum Alcohol (0-0.07) % ED Medical Decision Making - Lab Data Result diagrams: 08/26/20 14:27 08/26/20 12:52 Vital Signs 08/26/20 08/26/20 14:07 14:12 Temperature 97.8 F Pulse Rate 50 L Respiratory 16 18 Rate Blood Pressure 150/72 [Right] O2 Sat by Pulse 100 94 Oximetry Lab Results 08/26/20 08/26/20 08/26/20 Range/Units 12:52 12:52 12:52 PT 14.3 (12.2-14.9) Sec. INR 1.06 (0.87-1.13) Sodium 140 (137-145) mmol/L Potassium 4.4 (3.6-5.0) mmol/L Chloride 105.2 (98-107) mmol/L Carbon Dioxide 21 L (22-30) mmol/L Anion Gap 18 mmol/L BUN 20 (9-20) mg/dL Creatinine 0.9 (0.8-1.3) mg/dL Estimated GFR > 60 ml/min BUN/Creatinine Ratio 22 % Glucose 85 (75-100) mg/dL Calcium 9.4 (8.4-10.2) mg/dL Magnesium (1.7-2.3) mg/dL Total Bilirubin 0.70 (0.1-1.2) mg/dL AST 19 (5-40) units/L ALT 9 (7-56) units/L Alkaline Phosphatase 139 H (35-129) units/L Total Creatine Kinase (55-170) units/L Troponin T (0.00-0.029) ng/mL Total Protein 7.1 (6.3-8.2) g/dL Albumin 4.0 (3.9-5) g/dL Albumin/Globulin Ratio 1.3 % Urine Color (Yellow) Urine Turbidity (Clear) Urine pH (5.0-7.0) Ur Specific [place] (1.003-1.030) Urine Protein (Negative) mg/dL Urine Glucose (UA) (Negative) mg/dL Urine Ketones (Negative) mg/dL Urine Blood (Negative) Urine Nitrite (Negative) Urine Bilirubin (Negative) Urine Urobilinogen (<2.0) mg/dL Ur Leukocyte Esterase (Negative) Urine WBC (Auto) (0.0-6.0) /HPF Urine RBC (Auto) (0.0-6.0) /HPF U Epithel Cells (Auto) (0-13.0) /HPF Urine Mucus /HPF Salicylates (2.8-20.0) mg/dL Acetaminophen 5.0 L (10.0-30.0) ug/mL Plasma/Serum Alcohol (0-0.07) % 08/26/20 08/26/20 08/26/20 Range/Units 12:52 12:52 12:52 PT (12.2-14.9) Sec. INR (0.87-1.13) Sodium (137-145) mmol/L Potassium (3.6-5.0) mmol/L Chloride (98-107) mmol/L Carbon Dioxide (22-30) mmol/L Anion Gap mmol/L BUN (9-20) mg/dL Creatinine (0.8-1.3) mg/dL Estimated GFR ml/min BUN/Creatinine Ratio % Glucose (75-100) mg/dL Calcium (8.4-10.2) mg/dL Magnesium 2.20 (1.7-2.3) mg/dL Total Bilirubin (0.1-1.2) mg/dL AST (5-40) units/L ALT (7-56) units/L Alkaline Phosphatase (35-129) units/L Total Creatine Kinase 118 (55-170) units/L Troponin T < 0.010 (0.00-0.029) ng/mL Total Protein (6.3-8.2) g/dL Albumin (3.9-5) g/dL Albumin/Globulin Ratio % Urine Color (Yellow) Urine Turbidity (Clear) Urine pH (5.0-7.0) Ur Specific [place] (1.003-1.030) Urine Protein (Negative) mg/dL Urine Glucose (UA) (Negative) mg/dL Urine Ketones (Negative) mg/dL Urine Blood (Negative) Urine Nitrite (Negative) Urine Bilirubin (Negative) Urine Urobilinogen (<2.0) mg/dL Ur Leukocyte Esterase (Negative) Urine WBC (Auto) (0.0-6.0) /HPF Urine RBC (Auto) (0.0-6.0) /HPF U Epithel Cells (Auto) (0-13.0) /HPF Urine Mucus /HPF Salicylates < 0.3 L (2.8-20.0) mg/dL Acetaminophen (10.0-30.0) ug/mL Plasma/Serum Alcohol < 0.01 (0-0.07) % 08/26/20 Range/Units Unknown PT (12.2-14.9) Sec. INR (0.87-1.13) Sodium (137-145) mmol/L Potassium (3.6-5.0) mmol/L Chloride (98-107) mmol/L Carbon Dioxide (22-30) mmol/L Anion Gap mmol/L BUN (9-20) mg/dL Creatinine (0.8-1.3) mg/dL Estimated GFR ml/min BUN/Creatinine Ratio % Glucose (75-100) mg/dL Calcium (8.4-10.2) mg/dL Magnesium (1.7-2.3) mg/dL Total Bilirubin (0.1-1.2) mg/dL AST (5-40) units/L ALT (7-56) units/L Alkaline Phosphatase (35-129) units/L Total Creatine Kinase (55-170) units/L Troponin T (0.00-0.029) ng/mL Total Protein (6.3-8.2) g/dL Albumin (3.9-5) g/dL Albumin/Globulin Ratio % Urine Color Yellow (Yellow) Urine Turbidity Clear (Clear) Urine pH 6.0 (5.0-7.0) Ur Specific [place] 1.012 (1.003-1.030) Urine Protein <15 mg/dl (Negative) mg/dL Urine Glucose (UA) Neg (Negative) mg/dL Urine Ketones Neg (Negative) mg/dL Urine Blood Neg (Negative) Urine Nitrite Neg (Negative) Urine Bilirubin Neg (Negative) Urine Urobilinogen < 2.0 (<2.0) mg/dL Ur Leukocyte Esterase Neg (Negative) Urine WBC (Auto) 2.0 (0.0-6.0) /HPF Urine RBC (Auto) 4.0 (0.0-6.0) /HPF U Epithel Cells (Auto) < 1.0 (0-13.0) /HPF Urine Mucus Few /HPF Salicylates (2.8-20.0) mg/dL Acetaminophen (10.0-30.0) ug/mL Plasma/Serum Alcohol (0-0.07) % - EKG Data -: EKG Interpreted by Sc EKG shows normal: sinus rhythm Rate: bradycardia - EKG Data 08/26/20 13:31 EKG interpreted at 13: 13 Sinus rhythm, bradycardia, 55 bpm. Normal axis, QTC 47 ms. Left ventricular hypertrophy. Right bundle branch block noted. Motion artifact. Abnormal EKG. Not a STEMI. - Radiology Data Radiology results: pending, report reviewed, image reviewed CT head/brain wo con INDICATION / CLINICAL INFORMATION: 89 years Male; Altered Mental Status. TECHNIQUE: Routine CT head without contrast. All CT scans at this location are performed using CT dose reduction for Abyz by means of aut omated exposure control. COMPARISON: The study is compared to the previous CT of 06/07/2020. FINDINGS: BRAIN / INTRACRANIAL CONTENTS: The motion degrades the image quality. 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 The findings remain greater on the left and appear to correlate with the previous study. There is continued advanced cerebral atrophy with associated prominence of the ventricular system. There is a persistent calcified lesion along the posterior left falx measuring 1.2 cm in greatest AP projection which is unchanged and most consistent with a meningioma. There is no clear CT evidence of developing acute intracranial hemorrhage. ORBITS: No significant abnormality of visualized orbits. SINUSES / MASTOIDS: No significant abnormality in the visualized paranasal sinuses or mastoid air cells. CRANIOCERVICAL JUNCTION: No significant abnormality. ADDITIONAL FINDINGS: None. IMPRESSION: 1. 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 2. The findings remain most consistent with a 1.2 similar calcified meningioma along the posterior left falx. Signer Name: Randolph Li MD Signed: 08/26/2020 1:41 PM Workstation Name: [id number] CT CHEST WITHOUT CONTRAST INDICATION / CLINICAL INFORMATION: Bilateral basilar rhonchi. TECHNIQUE: Axial CT images were obtained through the chest without contrast. All CT scans at this location are performed using CT dose reduction for Abyz by means of automated exposure control. COMPARISON: Chest x-ray earlier the same day. CTA chest 06/07/2020 FINDINGS: HEART: No significant ab normality. CORONARY ARTERY CALCIFICATION: Dense. THORACIC AORTA: Stable ectasia of the a sending thoracic aorta. MEDIASTINUM / TELLO: Stable 3 cm nodule right thyroid. PLEURA: Small right effusion. Persistent left pleural calcification with adjacent scarring at the left base. No discrete mass. No pneumothorax. LUNGS: Stable moderate emphysema. Bibasilar scarring remains. No acute infiltrate. ADDITIONAL FINDINGS: None. UPPER ABDOMEN: No significant abnormality. SKELETAL SYSTEM: No significant abnormality. IMPRESSION: 1. No acute abnormality. 2. Small right effusion. 3. Persistent pleural-based calcification with adjacent scarring on the left. 4. Stable emphysema. 5. Stable right thyroid nodularity. Signer Name: Binu Neil MD Signed: 08/26/2020 1:47 PM Workstation Name: [id number] Critical care attestation.: If time is entered above; I have spent that time in minutes in the direct care of this critically ill patient, excluding procedure time. ED Disposition Clinical Impression: COPD (chronic obstructive pulmonary disease), Vascular dementia, Encounter for medical screening examination Disposition: DC-01 TO HOME OR SELFCARE Is pt being admited?: No Does the pt Need Aspirin: No Condition: Good Instructions: Chronic Obstructive Pulmonary Disease (ED) Additional Instructions: Please continue current outpatient medications. Patient was not found to have an emergent medical condition present while here in the emergency room today. Patient most likely experiencing natural history of underlying vascular dementia, as well as underlying COPD. The patient should continue his current outpatient medications. The patient is to follow-up with the primary care doctor, such as Dr. White, within the next 3 to 4 weeks. The patient may follow-up with a primary care doctor or relationship management lead, such as Dr. Bangura, within the next 3 to 4 weeks for COPD. The patient may follow-up with a primary care doctor or neurologist, such as Dr. Rojas, within the next 3 to 4 weeks. 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 Therefore, please follow-up as an outpatient as recommended, dementia does not have a cure. Please return to the emergency room right away with new pain, worsened pain, migration of pain, projectile vomiting, change in mental status, confusion, i nability to tolerate liquid feeds, new, worsened or different symptoms not present on the initial emergency room evaluation. Referrals: TYRESE WHITE MD [Staff Physician] - 3-5 Days FRANK ROJAS MD [Staff Physician] - 3-5 Days HEAHTER BANGURA MD [Staff Physician] - 3-5 Days [facility] [Provider Group] - 3-5 Days
--- NOTE | 2020-08-26 13:30 | XRay Report ---
CHEST 1 VIEW INDICATION: Altered Mental Status. COMPARISON: 08/12/2020 FINDINGS: SUPPORT DEVICES: Stable satisfactory device positioning. HEART: Within normal limits. LUNGS/PLEURA: Slightly rotated exam with diffuse interstitial prominence again noted likely at least in part chronic. ADDITIONAL FINDINGS: None. IMPRESSION: 1. Largely unchanged exam. Signer Name: Bryan Thomas MD Signed: 08/26/2020 1:25 PM Workstation Name: [id number]
[2020-08-26 13:38] LABS: INR 1.06 (0.87-1.13)
[2020-08-26 14:05] LABS: Bilirubin,Urine NEG (Negative); Blood,Urine NEG (Negative); Color,Urine Yellow (Yellow); Mucus,Urine FEW /HPF; Protein,Urine <15 mg/dL mg/dL (Negative); Urobilinogen,Urine < 2.0 mg/dL (<2.0)
[2020-08-26 14:14] LABS: Alanine Aminotransferase 9 units/L (7-56); BUN/Creatinine Ratio 22; Blood Urea Nitrogen 20 mg/dL (9-20); Calcium 9.4 mg/dL (8.4-10.2); Hemolysis Index 17
--- NOTE | 2020-08-26 14:46 | Cat Scan Report ---
CT head/brain wo con INDICATION / CLINICAL INFORMATION: 89 years Male; Altered Mental Status. TECHNIQUE: Routine CT head without contrast. All CT scans at this location are performed using CT dos e reduction for ALARA by means of automated exposure control. COMPARISON: The study is compared to the previous CT of 06/07/2020. FINDINGS: BRAIN / INTRACRANIAL CONTENTS: The motion degrades the image quality. However, there is extensive cer ebral white matter disease most consistent with microvascular angiopathy. The findings remain greater on the left and appear to correlate with the previous study. There is continued advanced cerebral atrophy with associated prominence of the ventricular system. Th ere is a persistent calcified lesion along the posterior left falx measuring 1.2 cm in greatest AP pr ojection which is unchanged and most consistent with a meningioma. There is no clear CT evidence of d eveloping acute intracranial hemorrhage. ORBITS: No significant abnormality of visualized orbits. SINUSES / MASTOIDS: No significant abnormality in the visualized paranasal sinuses or mastoid air riri ls. CRANIOCERVICAL JUNCTION: No significant abnormality. ADDITIONAL FINDINGS: None. IMPRESSION: 1. 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 2. The findings remain most consistent with a 1.2 similar calcified meningioma along the posterior le ft falx. Signer Name: Randolph Li MD Signed: 08/26/2020 2:41 PM Workstation Name: [id number]
--- NOTE | 2020-08-26 14:51 | Cat Scan Report ---
CT CHEST WITHOUT CONTRAST INDICATION / CLINICAL INFORMATION: Bilateral basilar rhonchi. TECHNIQUE: Axial CT images were obtained through the chest without contrast. [facility] CT [facility] are performed using CT dose reduction for ALARA by means of automated exposure control. COMPARISON: Chest x-ray earlier the same day. CTA chest 06/07/2020 FINDINGS: HEART: No significant abnormality. CORONARY ARTERY CALCIFICATION: Dense. THORACIC AORTA: Stable ectasia of the a sending thoracic aorta. MEDIASTINUM / TELLO: Stable 3 cm nodule right thyroid. PLEURA: Small right effusion. Persistent left pleural calcification with adjacent scarring at the lef t base. No discrete mass. No pneumothorax. LUNGS: Stable moderate emphysema. Bibasilar scarring remains. No acute infiltrate. ADDITIONAL FINDINGS: None. UPPER ABDOMEN: No significant abnormality. SKELETAL SYSTEM: No significant abnormality. IMPRESSION: 1. No acute abnormality. 2. Small right effusion. 3. Persistent pleural-based calcification with adjacent scarring on the left. 4. Stable emphysema. 5. Stable right thyroid nodularity. Signer Name: Binu Neil MD Signed: 08/26/2020 2:47 PM Workstation Name: [id number]
[2020-08-26 14:55] LABS: Hematocrit 37.8 % (35.5-45.6); Hemoglobin 13.3 gm/dl (11.8-15.2); Mean Corpuscular HGB Conc 35 % (32-34); Mean Corpuscular Volume 96 fl (84-94); Platelet Count 291 K/mm3 (140-440); Red Blood Count 3.93 M/mm3 (3.65-5.03); Red Cell Distribution Width 14.3 % (13.2-15.2)
[2020-08-26 15:39] VITALS: BP 140/78
--- NOTE | 2020-09-05 10:30 | Electrocardiograph Report ---
[facility] Test Date: 2020-08-26 Test Time: 13:13:14 Pat Name: ESTRELLA ROSARIO Department: Room: Gender: M [employer] Calculator: [phone] 1930 Requested By: KULDEEP ASHBY Order Number: [id number] Reading MD: Tad Kirk Measurements Intervals [place] Rate: 55 P: 65 NE: 181 QRS: 70 QRSD: 142 T: 57 QT: 509 QTc: 487 Interpretive Statements Sinus bradycardia Right bundle branch block Compared to ECG 06/10/2020 11:47:52 No significant change Electronically Signed On 09-05-2020 10:29:44 EDT by Tad Kirk
== END 2020-08-26 17:00 | disposition home or self-care (01) ==
LOC: ED 11:17
DX: J44.9 Chronic obstructive pulmonary disease, unspecified (principal); F01.50 Vascular dementia, unspecified severity, without behavioral disturbance, psychotic disturbance, mood disturbance, and anxiety; Z00.00 Encounter for general adult medical examination without abnormal findings; I11.0 Hypertensive heart disease with heart failure; I50.9 Heart failure, unspecified; F32.9 Major depressive disorder, single episode, unspecified; Z98.890 Other specified postprocedural states; Z79.899 Other long term (current) drug therapy; Z91.013 Allergy to seafood; Z88.0 Allergy status to penicillin; Z88.8 Allergy status to other drugs, medicaments and biological substances
CPT/HCPCS: 36415; 70450; 71045; 71250; 80048; 80053; 80320; 81001; 82140; 82550; 83735; 83880; 84443; 84484; 85027; 85610; 87086; 93005; G0480

== ENCOUNTER 2020-10-02 22:11 | Inpatient (IN) | payer MEDICARE ==
--- NOTE | 2020-10-02 22:22 | Emergency Department Report ---
ED Abdominal Pain HPI - General Chief Complaint: Abdominal Pain Stated Complaint: ABD PAIN PUI?: No Time Seen by Provider: 10/02/20 22:18 Source: EMS, RN notes reviewed, old records reviewed Mode of arrival: Stretcher Limitations: Altered Mental Status, Physical Limitation - History of Present Illness Initial Comments: Patient is an 89-year-old male who presents emergency room with abdominal pain. Patient was brought here by EMS. Patient is a resident at a local personal halfway and was transferred here via EMS to be evaluated for abdominal pain and constipation. EMS states that the staff at his personal halfway states that he is in pain and has had a bowel movement for 3 or 4 days. EMS states there has not been any reported nausea or vomiting. EMS states there is not any other symptoms. EMS states that the patient is at his neurologic baseline and baseline mentation.. Patient is currently on 2 L of oxygen and the patient is on 2 L of oxygen at home. EMS does not report any other symptoms. Patient does not answer any questions. MD Complaint: abdominal pain -: Sudden Location: diffuse Consistency: constant - Related Data Home Medications Medication Instructions Recorded Confirmed Last Taken Albuterol Sulfate [Ventolin HFA] 2 puff IH PRN PRN 09/20/17 08/16/20 Unknown Ergocalciferol [Vitamin D2] 1 cap PO 2XW 09/20/17 08/16/20 Unknown Previous Rx's Medication Instructions Recorded Last Taken Type ALBUTEROL NEB's [Proventil 0.083% 2.5 mg IH Q3HRT PRN #30 nebu 09/24/17 Unknown Rx NEBS] Acetaminophen [Acetaminophen TAB] 650 mg PO Q4H PRN #30 tablet 09/24/17 Unknown Rx Mirtazapine [Remeron 30mg TAB] 30 mg PO QHS PRN #30 tablet 09/24/17 Unknown Rx Famotidine [Pepcid] 40 mg PO QHS #10 tablet 07/21/18 Unknown Rx diphenhydrAMINE [Benadryl CAP] 25 mg PO Q6HR PRN #12 capsule 07/21/18 Unknown Rx Aspirin EC [Halfprin EC] 81 mg PO QDAY #100 tablet. 06/10/20 Unknown Rx AtorvaSTATin [Lipitor] 40 mg PO QHS #30 tablet 06/10/20 Unknown Rx Clopidogrel [Plavix] 75 mg PO QDAY #30 tablet 06/10/20 Unknown Rx ISOSORBIDE MONOnitrate [Imdur ER] 30 mg PO QDAY #30 tablet 06/10/20 Unknown Rx Ipratropium/Albuterol Sulfate 1 ampul IH DAILY #50 ampul.neb 06/10/20 Unknown Rx [DUONEB *Not for PRN Use*] Losartan [Cozaar] 25 mg PO QDAY #30 tablet 06/10/20 Unknown Rx Testosterone [Androderm] 1 each TD DAILY 06/10/20 Unknown Rx Tiotropium Br/Olodaterol HCl 1 puff IH DAILY #1 06/10/20 Unknown Rx [Stiolto Respimat Inhal [place]] carvediloL [Coreg] 3.125 mg PO BID #60 tablet 06/10/20 Unknown Rx donepeziL [Aricept] 5 mg PO DAILY #30 tablet 06/10/20 Unknown Rx predniSONE 10 mg PO QDAY #30 tablet 06/10/20 Unknown Rx Docusate Sodium [Colace CAP] 100 mg PO BID PRN #60 capsule 08/12/20 Unknown Rx Lactulose 10 gm PO DAILY PRN #60 ml 08/12/20 Unknown Rx Sodium Phosphate,[place]-Dibasic 118 ml RC ONCE #1 enema 08/12/20 Unknown Rx [Fleet Enema] levoFLOXacin [Levaquin TAB] 500 mg PO Q24H #5 tablet 08/16/20 Unknown Rx metroNIDAZOLE [Flagyl TAB] 500 mg PO Q8HR #15 tablet 08/16/20 Unknown Rx Allergies Allergy/AdvReac Type Severity Reaction Status Date / Time haloperidol [From Haldol] Allergy Unknown Verified 10/02/20 23:17 Penicillins Allergy Itching Verified 10/02/20 23:17 shellfish derived Allergy Unknown Verified 10/02/20 23:17 ED Review of Systems ROS: Stated complaint: ABD PAIN Other details as noted in HPI Comment: Unobtainable due to pts medical conditions ED Past Medical Hx - Past Medical History Previous Medical History?: Yes Hx Hypertension: Yes Hx Congestive Heart Failure: Yes Hx Psychiatric Treatment: Yes (Depression) Hx COPD: Yes Hx Dementia: Yes - Surgical History Past Surgical History?: Yes Additional Surgical History: Back surgery in 2008 - Family History Family history: no significant - Social History Smoking Status: Never Smoker Substance Use Type: None - Medications Home Medications: Home Medications Medication Instructions Recorded Confirmed Last Taken Type Albuterol Sulfate [Ventolin HFA] 2 puff IH PRN PRN 09/20/17 08/16/20 Unknown History Ergocalciferol [Vitamin D2] 1 cap PO 2XW 09/20/17 08/16/20 Unknown History ALBUTEROL NEB's [Proventil 0.083% 2.5 mg IH Q3HRT PRN #30 nebu 09/24/17 08/16/20 Unknown Rx NEBS] Acetaminophen [Acetaminophen TAB] 650 mg PO Q4H PRN #30 tablet 09/24/17 08/16/20 Unknown Rx Mirtazapine [Remeron 30mg TAB] 30 mg PO QHS PRN #30 tablet 09/24/17 08/16/20 Unknown Rx Famotidine [Pepcid] 40 mg PO QHS #10 tablet 07/21/18 08/16/20 Unknown Rx diphenhydrAMINE [Benadryl CAP] 25 mg PO Q6HR PRN #12 capsule 07/21/18 08/16/20 Unknown Rx Aspirin EC [Halfprin EC] 81 mg PO QDAY #100 tablet. 06/10/20 08/16/20 Unknown Rx AtorvaSTATin [Lipitor] 40 mg PO QHS #30 tablet 06/10/20 08/16/20 Unknown Rx Clopidogrel [Plavix] 75 mg PO QDAY #30 tablet 06/10/20 08/16/20 Unknown Rx ISOSORBIDE MONOnitrate [Imdur ER] 30 mg PO QDAY #30 tablet 06/10/20 08/16/20 Unknown Rx Ipratropium/Albuterol Sulfate 1 ampul IH DAILY #50 ampul.neb 06/10/20 08/16/20 Unknown Rx [DUONEB *Not for PRN Use*] Losartan [Cozaar] 25 mg PO QDAY #30 tablet 06/10/20 08/16/20 Unknown Rx Testosterone [Androderm] 1 each TD DAILY 06/10/20 08/16/20 Unknown Rx Tiotropium Br/Olodaterol HCl 1 puff IH DAILY #1 06/10/20 08/16/20 Unknown Rx [Stiolto Respimat Inhal [place]] carvediloL [Coreg] 3.125 mg PO BID #60 tablet 06/10/20 08/16/20 Unknown Rx donepeziL [Aricept] 5 mg PO DAILY #30 tablet 06/10/20 08/16/20 Unknown Rx predniSONE 10 mg PO QDAY #30 tablet 06/10/20 08/16/20 Unknown Rx Docusate Sodium [Colace CAP] 100 mg PO BID PRN #60 capsule 08/12/20 08/16/20 Unknown Rx Lactulose 10 gm PO DAILY PRN #60 ml 08/12/20 08/16/20 Unknown Rx Sodium Phosphate,[place]-Dibasic 118 ml RC ONCE #1 enema 08/12/20 08/16/20 Unknown Rx [Fleet Enema] levoFLOXacin [Levaquin TAB] 500 mg PO Q24H #5 tablet 08/16/20 Unknown Rx metroNIDAZOLE [Flagyl TAB] 500 mg PO Q8HR #15 tablet 08/16/20 Unknown Rx ED Physical Exam - General General appearance: alert, in no apparent distress - Head Head exam: Present: atraumatic, normocephalic - Eye Eye exam: Present: normal appearance, PERRL Pupils: Present: normal accommodation - ENT ENT exam: Present: mucous membranes dry - Neck Neck exam: Present: normal inspection - Respiratory Respiratory exam: Present: normal lung sounds bilaterally. Absent: respiratory distress, wheezes, rales - Cardiovascular Cardiovascular Exam: Present: regular rate, normal rhythm. Absent: systolic murmur, diastolic murmur, rubs, gallop - GI/Abdominal GI/Abdominal exam: Present: soft, distended, normal bowel sounds. Absent: tenderness - Rectal Rectal exam: Present: deferred - Extremities Exam Extremities exam: Present: normal inspection - Back Exam Back exam: Present: normal inspection - Neurological Exam Neurological exam: Present: alert, altered - Skin Skin exam: Present: warm, dry, intact, normal color. Absent: rash ED Course - Reevaluation(s) Reevaluation #1: Patient admitted to the hospital service. 10/03/20 01:31 - Consultations Consultation #1: Hospitalist consulted for admission. Hospitalist to admit patient. 10/03/20 01:31 ED Medical Decision Making - Lab Data Result diagrams: 10/02/20 22:39 10/02/20 22:39 - Radiology Data Radiology results: report reviewed CT abdomen pelvis w con INDICATION / CLINICAL INFORMATION: Diffuse abdominal pain with constipation. TECHNIQUE: Axial CT images were obtained through the abdomen and pelvis after IV contrast. All CT scans at this location are performed using CT dose reduction for ALARA by means of automated exposure control. COMPARISON: 08/15/2020 FINDINGS: LOWER CHEST: No significant abnormality LIVER: No significant abnormality GALLBLADDER/BILIARY TREE: Cholecystectomy. PANCREAS: No significant abnormality SPLEEN: No significant abnormality ADRENALS: No significant abnormality KIDNEYS / URETER: Bilateral renal cysts are present. There is cortical thinning. Kidneys enhance symmetrically. No hydronephrosis. URINARY BLADDER: No significant abnormality REPRODUCTIVE ORGANS: No significant abnormality STOMACH / BOWEL: Moderate colonic stool burden with distention of the rectal vault. There is wall thickening of the distal rectum/anus. Mild inflammatory stranding is present in the presacral region. No organized collection. Stomach and small bowel are normal in caliber. Of appendicitis. LYMPH NODES: No significant adenopathy. VASCULATURE: No significant abnormality. OTHER: No free air, free fluid, or focal fluid collection is identified. SKELETAL SYSTEM: No acute osseous findings. Remote fractures of bilateral lower ribs and remote compression deformity of L1. Scattered degenerative changes of spine. IMPRESSION: 1. Moderate colonic stool burden, compatible with constipation, with distention of the rectal vault, which may reflect fecal impaction. There is mural thickening of the distal rectum and anus with mild presacral inflammatory stranding, may reflect developing stercoral colitis. 2. No other acute abnormality. Other stable chronic and incidental placement above. - Medical Decision Making Patient is an 89-year-old male who presents emergency room from a personal halfway. Patient is unable to make his needs known. Per EMS and the staff at the personal halfway the patient is at his baseline mentation. Patient had labs done which revealed acute renal failure as well as an elevated WBC. Patient's previous creatinine 0.9. Patient has CT scan and it showed colitis and a fecal impaction. patient given IV fluids and IV antibiotics. Patient admitted to the hospital service for further evaluation treatment. Critical care time documented due to the multiple reassessments, prolonged time at the bedside, interpretation of diagnostics and labs. - Differential Diagnosis SBO, abdominal pain, constipation Critical care time in (mins) excluding proc time.: 35 Critical care attestation.: If time is entered above; I have spent that time in minutes in the direct care of this critically ill patient, excluding procedure time. Critical Care Time: 35 minutes ED Disposition Clinical Impression: Renal insufficiency, Dehydration, Fecal impaction in rectum, Stercoral colitis Abdominal pain Qualifiers: Abdominal location: unspecified location Qualified Code(s): R10.9 - Unspecified abdominal pain Constipation Qualifiers: Constipation type: unspecified constipation type Qualified Code(s): K59.00 - Constipation, unspecified Renal failure Qualifiers: Renal failure chronicity: acute Acute renal failure type: unspecified Qualified Code(s): N17.9 - Acute kidney failure, unspecified Disposition: 09 OP ADMIT IP TO THIS HOSP Is pt being admited?: Yes Does the pt Need Aspirin: No Condition: Critical Time of Disposition: 01:29
[2020-10-02 22:53] LABS: Basophils % (Auto) 0.4 % (0.0-1.8); Eosinophils # (Auto) 0.4 K/mm3 (0.0-0.4); Eosinophils % (Auto) 3.4 % (0.0-4.3); Hematocrit 38.7 % (35.5-45.6); Hemoglobin 13.1 gm/dl (11.8-15.2); Lymphocytes # (Auto) 2.4 K/mm3 (1.2-5.4); Lymphocytes % (Auto) 18.8 % (13.4-35.0); Mean Corpuscular HGB Conc 34 % (32-34); Mean Corpuscular Volume 95 fl (84-94); Monocytes # (Auto) 1.2 K/mm3 (0.0-0.8); Monocytes % (Auto) 9.6 % (0.0-7.3); Platelet Count 269 K/mm3 (140-440); Red Blood Count 4.06 M/mm3 (3.65-5.03); Red Cell Distribution Width 14.5 % (13.2-15.2)
[2020-10-02 23:12] LABS: BUN/Creatinine Ratio 18; Blood Urea Nitrogen 27 mg/dL (9-20); Calcium 8.7 mg/dL (8.4-10.2)
[2020-10-02 23:13] LABS: Alanine Aminotransferase 12 units/L (7-56); Albumin 3.7 g/dL (3.9-5); Hemolysis Index 5
[2020-10-02 23:21] LABS: Bilirubin,Direct < 0.2 mg/dL (0-0.2)
--- NOTE | 2020-10-03 00:32 | Cat Scan Report ---
CT abdomen pelvis w con INDICATION / CLINICAL INFORMATION: Diffuse abdominal pain with constipation. TECHNIQUE: Axial CT images were obtained through the abdomen and pelvis after IV contrast. All CT sc ans at this location are performed using CT dose reduction for ALARA by means of automated exposure c ontrol. COMPARISON: 08/15/2020 FINDINGS: LOWER CHEST: No significant abnormality LIVER: No significant abnormality GALLBLADDER/BILIARY TREE: Cholecystectomy. PANCREAS: No significant abnormality SPLEEN: No significant abnormality ADRENALS: No significant abnormality KIDNEYS / URETER: Bilateral renal cysts are present. There is cortical thinning. Kidneys enhance symm etrically. No hydronephrosis. URINARY BLADDER: No significant abnormality REPRODUCTIVE ORGANS: No significant abnormality STOMACH / BOWEL: Moderate colonic stool burden with distention of the rectal vault. There is wall thi ckening of the distal rectum/anus. Mild inflammatory stranding is present in the presacral region. No organized collection. Stomach and small bowel are normal in caliber. Of appendicitis. LYMPH NODES: No significant adenopathy. VASCULATURE: No significant abnormality. OTHER: No free air, free fluid, or focal fluid collection is identified. SKELETAL SYSTEM: No acute osseous findings. Remote fractures of bilateral lower ribs and remote compr ession deformity of L1. Scattered degenerative changes of spine. IMPRESSION: 1. Moderate colonic stool burden, compatible with constipation, with distention of the rectal vault, which may reflect fecal impaction. There is mural thickening of the distal rectum and anus with mild presacral inflammatory stranding, may reflect developing stercoral colitis. 2. No other acute abnormality. Other stable chronic and incidental placement above. Signer Name: Boby Tran MD Signed: 10/03/2020 12:27 AM Workstation Name: [id number]
[2020-10-03] MEDS ORDERED: SODIUM CHLORIDE 0.9% 1000 ML 1,000 ML IV ONE (01:16)
[2020-10-03] MEDS ORDERED: metroNIDAZOLE/NS 500 MG/100 ML 500 MG/100 ML BAG IV ONE (01:16)
[2020-10-03] MEDS ORDERED: HYDROcodone/ACETAMINOPHEN 5-325 MG TAB PO PRN (03:59)
[2020-10-03] MEDS ORDERED: ACETAMINOPHEN 325 MG TAB PO PRN (03:59)
[2020-10-03] MEDS ORDERED: ALBUTEROL 2.5 MG/3 ML NEBU IH PRN ×2 (03:59→04:03)
[2020-10-03] MEDS ORDERED: ONDANSETRON 4 MG/2 ML INJ IV PRN (03:59)
[2020-10-03] MEDS ORDERED: HYDROmorphone 1 MG/1 ML INJ IV PRN (03:59)
[2020-10-03] MEDS ORDERED: MIRTAZAPINE 30 MG TAB PO PRN (04:03)
[2020-10-03] MEDS ORDERED: DOCUSATE SODIUM 100 MG CAP PO PRN (04:03)
[2020-10-03] MEDS ORDERED: LACTULOSE 20 GM/30 ML ORAL LIQD PO PRN (04:03)
[2020-10-03] MEDS ORDERED: ALBUTEROL 8.5 GM MDI INHALATION IH PRN (04:03)
--- NOTE | 2020-10-03 04:11 | History and Physical Report ---
History of Present Illness Date of examination: 10/03/20 Date of admission: 10/03/20 01:31 Chief complaint: Abdominal pain History of present illness: 89-year-old male with history of dementia hypertension congestive heart failure depression and COPD was brought to the emergency room because of abdominal pain. Patient is a resident at a local personal senior living and was transferred here via EMS to be evaluated for abdominal pain and constipation. EMS states that the staff at his personal senior living states that he is in pain and has had a bowel movement for 3 or 4 days. EMS states there has not been any reported nausea or vomiting. EMS states there is not any other symptoms. EMS states that the patient is at his neurologic baseline and baseline mentation.. Patient is currently on 2 L of oxygen and the patient is on 2 L of oxygen at home. In the emergency room CT scan of the abdomen shows moderate colonic stool burden, compatible with constipation with distention of the rectal vault, which may reflect fecal impaction. There is mural thickening of the distal rectum and and asked with mild presacral inflammatory stranding, may reflect developing stercoral colitis Past History Past Medical History: COPD (Dementia), heart failure, hypertension, other (Depression) Medications and Allergies Allergies Allergy/AdvReac Type Severity Reaction Status Date / Time haloperidol [From Haldol] Allergy Unknown Verified 10/02/20 23:17 Penicillins Allergy Itching Verified 10/02/20 23:17 shellfish derived Allergy Unknown Verified 10/02/20 23:17 Home Medications Medication Instructions Recorded Confirmed Last Taken Type Albuterol Sulfate [Ventolin HFA] 2 puff IH PRN PRN 09/20/17 08/16/20 Unknown History Ergocalciferol [Vitamin D2] 1 cap PO 2XW 09/20/17 08/16/20 Unknown History ALBUTEROL NEB's [Proventil 0.083% 2.5 mg IH Q3HRT PRN #30 nebu 09/24/17 08/16/20 Unknown Rx NEBS] Acetaminophen [Acetaminophen TAB] 650 mg PO Q4H PRN #30 tablet 09/24/17 08/16/20 Unknown Rx Mirtazapine [Remeron 30mg TAB] 30 mg PO QHS PRN #30 tablet 09/24/17 08/16/20 Unknown Rx Famotidine [Pepcid] 40 mg PO QHS #10 tablet 07/21/18 08/16/20 Unknown Rx diphenhydrAMINE [Benadryl CAP] 25 mg PO Q6HR PRN #12 capsule 07/21/18 08/16/20 Unknown Rx Aspirin EC [Halfprin EC] 81 mg PO QDAY #100 tablet. 06/10/20 08/16/20 Unknown Rx AtorvaSTATin [Lipitor] 40 mg PO QHS #30 tablet 06/10/20 08/16/20 Unknown Rx Clopidogrel [Plavix] 75 mg PO QDAY #30 tablet 06/10/20 08/16/20 Unknown Rx ISOSORBIDE MONOnitrate [Imdur ER] 30 mg PO QDAY #30 tablet 06/10/20 08/16/20 Unknown Rx Ipratropium/Albuterol Sulfate 1 ampul IH DAILY #50 ampul.neb 06/10/20 08/16/20 Unknown Rx [DUONEB *Not for PRN Use*] Losartan [Cozaar] 25 mg PO QDAY #30 tablet 06/10/20 08/16/20 Unknown Rx Testosterone [Androderm] 1 each TD DAILY 06/10/20 08/16/20 Unknown Rx Tiotropium Br/Olodaterol HCl 1 puff IH DAILY #1 06/10/20 08/16/20 Unknown Rx [Stiolto Respimat Inhal [place]] carvediloL [Coreg] 3.125 mg PO BID #60 tablet 06/10/20 08/16/20 Unknown Rx donepeziL [Aricept] 5 mg PO DAILY #30 tablet 06/10/20 08/16/20 Unknown Rx predniSONE 10 mg PO QDAY #30 tablet 06/10/20 08/16/20 Unknown Rx Docusate Sodium [Colace CAP] 100 mg PO BID PRN #60 capsule 08/12/20 08/16/20 Unknown Rx Lactulose 10 gm PO DAILY PRN #60 ml 08/12/20 08/16/20 Unknown Rx Sodium Phosphate,[place]-Dibasic 118 ml RC ONCE #1 enema 08/12/20 08/16/20 Unknown Rx [Fleet Enema] levoFLOXacin [Levaquin TAB] 500 mg PO Q24H #5 tablet 08/16/20 Unknown Rx metroNIDAZOLE [Flagyl TAB] 500 mg PO Q8HR #15 tablet 08/16/20 Unknown Rx Active Meds: Active Medications Acetaminophen (Acetaminophen 325 Mg Tab) 650 mg PO Q4H PRN PRN Reason: Pain MILD(1-3)/Fever >100.5/[place] Hydrocodone Bitart/Acetaminophen (Hydrocodone/Acetaminophen 5-325 Mg Tab) 2 each PO Q6H PRN PRN Reason: Pain, Moderate (4-6) Albuterol (Albuterol 2.5 Mg/3 Ml Nebu) 2.5 mg IH Q4HRT PRN PRN Reason: Shortness Of Breath Albuterol (Albuterol 2.5 Mg/3 Ml Nebu) 2.5 mg IH Q3HRT PRN PRN Reason: Shortness Of Breath Albuterol (Albuterol 8.5 Gm Mdi Inhalation) 2 puff IH PRN PRN PRN Reason: Shortness Of Breath Albuterol/Ipratropium (Ipratropium/Albuterol Sulfate 3 Ml Ampul.Neb) 1 ampul IH DAILY [facility] Aspirin (Aspirin Ec 81 Mg Tab) 81 mg PO QDAY [facility] Atorvastatin Calcium (Atorvastatin 40 Mg Tab) 40 mg PO QHS [facility] Carvedilol (Carvedilol 3.125 Mg Tab) 3.125 mg PO BID [facility] Clopidogrel Bisulfate (Clopidogrel 75 Mg Tab) 75 mg PO QDAY [facility] Docusate Sodium (Docusate Sodium 100 Mg Cap) 100 mg PO BID PRN PRN Reason: Constipation Donepezil HCl (Donepezil 5 Mg Tab) 5 mg PO DAILY [facility] Ergocalciferol (Ergocalciferol (Vit D2) 50,000 Unit Cap) unit PO 2XW [facility] Famotidine (Famotidine 20 Mg/2 Ml Inj) 20 mg IV BID [facility] Heparin Sodium (Porcine) (Heparin 5,000 Unit/1 Ml Vial) 5,000 unit SUB-Q Q8HR [facility] Hydromorphone HCl (Hydromorphone 1 Mg/1 Ml Inj) 0.5 mg IV Q3H PRN PRN Reason: Pain , Severe (7-10) Sodium Chloride (Nacl 0.45% 1000 Ml) 1,000 mls @ 100 mls/hr IV DIRECT [facility] Isosorbide Mononitrate (Isosorbide Mononitrate Er 30 Mg Tab) 30 mg PO QDAY [facility] Lactulose (Lactulose Enema 1000 Ml) 10 gm MO DAILY PRN PRN Reason: Constipation Levofloxacin (Levofloxacin 500 Mg Tab) 500 mg PO Q24H [facility]; Protocol Losartan Potassium (Losartan 25 Mg Tab) 25 mg PO QDAY [facility] Metronidazole (Metronidazole 500 Mg Tab) 500 mg PO Q8HR [facility]; Protocol Mirtazapine (Mirtazapine 30 Mg Tab) 30 mg PO QHS PRN PRN Reason: Sleep Miscellaneous Medication (Tiotropium Br/Olodaterol Hcl [Stiolto Respimat Inhal [place]]) 1 puff IH DAILY [facility] Ondansetron HCl (Ondansetron 4 Mg/2 Ml Inj) 4 mg IV Q8H PRN PRN Reason: Nausea And Vomiting Prednisone (Prednisone 10 Mg Tab) 10 mg PO QDAY [facility] Sodium Biphosphate/Sodium Phosphate (Fleet Enema) 118 ml MO ONCE [facility] Sodium Chloride (Sodium Chloride 0.9% 10 Ml Flush Syringe) 10 ml IV BID [facility] Sodium Chloride (Sodium Chloride 0.9% 10 Ml Flush Syringe) 10 ml IV PRN PRN PRN Reason: LINE FLUSH Review of Systems Gastrointestinal: abdominal pain, constipation Exam - Constitutional General appearance: Present: no acute distress, well-nourished - EENT Eyes: Present: PERRL ENT: hearing intact, clear oral mucosa - Neck Neck: Present: supple, normal ROM - Respiratory Respiratory effort: normal Respiratory: bilateral: diminished - Cardiovascular Heart Sounds: Present: S1 & S2. Absent: rub, click - Extremities Extremities: pulses symmetrical, No edema Peripheral Pulses: within normal limits - Abdominal General gastrointestinal: Present: soft, non-tender, non-distended, normal bowel sounds Male genitourinary: Present: normal - Integumentary Integumentary: Present: clear, warm, dry - Musculoskeletal Musculoskeletal: gait normal, strength equal bilaterally - Psychiatric Psychiatric: appropriate mood/affect, intact judgment & insight - Neurologic Neurologic: CNII-XII intact, moves all extremities Results - Labs CBC & Chem 7: 10/02/20 22:39 10/02/20 22:39 Labs: Laboratory Last Values WBC 12.6 K/mm3 (4.5-11.0) H 10/02/20 22:39 RBC 4.06 M/mm3 (3.65-5.03) 10/02/20 22:39 Hgb 13.1 gm/dl (11.8-15.2) 10/02/20 22:39 Hct 38.7 % (35.5-45.6) 10/02/20 22:39 MCV 95 fl (84-94) H 10/02/20 22:39 MCH 32 pg (28-32) 10/02/20 22:39 MCHC 34 % (32-34) 10/02/20 22:39 RDW 14.5 % (13.2-15.2) 10/02/20 22:39 Plt Count 269 K/mm3 (140-440) 10/02/20 22:39 Lymph % (Auto) 18.8 % (13.4-35.0) 10/02/20 22:39 [place] % (Auto) 9.6 % (0.0-7.3) H 10/02/20 22:39 Eos % (Auto) 3.4 % (0.0-4.3) 10/02/20 22:39 Baso % (Auto) 0.4 % (0.0-1.8) 10/02/20 22:39 Lymph # (Auto) 2.4 K/mm3 (1.2-5.4) 10/02/20 22:39 [place] # (Auto) 1.2 K/mm3 (0.0-0.8) H 10/02/20 22:39 Eos # (Auto) 0.4 K/mm3 (0.0-0.4) 10/02/20 22:39 Baso # (Auto) 0.0 K/mm3 (0.0-0.1) 10/02/20 22:39 Seg Neutrophils % 67.8 % (40.0-70.0) 10/02/20 22:39 Seg Neutrophils # 8.5 K/mm3 (1.8-7.7) H 10/02/20 22:39 Sodium 142 mmol/L (137-145) 10/02/20 22:39 Potassium 4.9 mmol/L (3.6-5.0) 10/02/20 22:39 Chloride 106.4 mmol/L (98-107) 10/02/20 22:39 Carbon Dioxide 27 mmol/L (22-30) 10/02/20 22:39 Anion Gap 14 mmol/L 10/02/20 22:39 BUN 27 mg/dL (9-20) H 10/02/20 22:39 Creatinine 1.5 mg/dL (0.8-1.3) H 10/02/20 22:39 Estimated GFR 44 ml/min 10/02/20 22:39 BUN/Creatinine Ratio 18 % 10/02/20 22:39 Glucose 106 mg/dL (75-100) H 10/02/20 22:39 Calcium 8.7 mg/dL (8.4-10.2) 10/02/20 22:39 Total Bilirubin 0.60 mg/dL (0.1-1.2) 10/02/20 22:39 Direct Bilirubin < 0.2 mg/dL (0-0.2) 10/02/20 22:39 Indirect Bilirubin 0.4 mg/dL 10/02/20 22:39 AST 13 units/L (5-40) 10/02/20 22:39 ALT 12 units/L (7-56) 10/02/20 22:39 Alkaline Phosphatase 86 units/L (35-129) 10/02/20 22:39 Total Protein 6.2 g/dL (6.3-8.2) L 10/02/20 22:39 Albumin 3.7 g/dL (3.9-5) L 10/02/20 22:39 Albumin/Globulin Ratio 1.5 % 10/02/20 22:39 Lipase 69 units/L (13-60) H 10/02/20 22:39 - Imaging and Cardiology CT scan - abdomen: report reviewed Assessment and Plan VTE prophylaxis?: Chemical Plan of care discussed with patient/family: Yes - Patient Problems (1) Abdominal pain Current Visit: Yes Status: Acute Qualifiers: Abdominal location: unspecified location Qualified Code(s): R10.9 - Unspecified abdominal pain Plan to address problem: Admit the patient to the medical floor. Put the patient on cardiac diet. Tylenol 650 mg p.o. every 6 hours as needed. Pepcid 20 mg IV twice daily. Colace 100 mg p.o. twice daily, lactulose 10 g per rectally daily [place] Enema daily. Reconsult GI for evaluation (2) Stercoral colitis Current Visit: Yes Status: Acute Plan to address problem: Levaquin 500 mg p.o. daily. Metronidazole 500 mg p.o. every 8 hours. Pepcid 20 mg IV every 12 hours. Reconsult GI for evaluation and treatment. (3) Dementia Current Visit: Yes Status: Acute Plan to address problem: Stable. Aricept 5 mg p.o. daily. We will monitor the patient closely (4) CHF (congestive heart failure) Current Visit: Yes Status: Acute Plan to address problem: Stable. We will continue the home medication. (5) Constipation Current Visit: Yes Status: Acute Qualifiers: Constipation type: unspecified constipation type Plan to address problem: Colace 100 mg p.o. twice daily, lactulose 10 g per rectally daily .Fleet Enema daily. Reconsult GI for evaluation (6) Fecal impaction in rectum Current Visit: Yes Status: Acute Plan to address problem: Put the patient on cardiac diet. Tylenol 650 mg p.o. every 6 hours as needed. Pepcid 20 mg IV twice daily. Colace 100 mg p.o. twice daily, lactulose 10 g per rectally daily Fleet Enema daily. Reconsult GI for evaluation (7) Renal insufficiency Current Visit: Yes Status: Acute Plan to address problem: Abnormal saline at the rate of 100 cc/h. Avoid nephrotoxic drug. Recheck BMP in the morning (8) DVT prophylaxis Current Visit: Yes Status: Acute Plan to address problem: Heparin 5000 units subcu every 8 hours for DVT prophylaxis. Pepcid 20 mg IV every 12 hours for GI prophylaxis. Patient is a full code
[2020-10-03] MEDS ORDERED: FLEET ENEMA PR ONE (05:30)
[2020-10-03] MEDS ORDERED: predniSONE 10 MG TAB PO SCH (08:00)
[2020-10-03] MEDS ORDERED: levoFLOXacin 500 MG TAB PO SCH (10:00)
[2020-10-03] MEDS ORDERED: OLODATEROL HCL IH SCH (10:00)
[2020-10-03] MEDS ORDERED: TIOTROPIUM BR IH SCH (10:00)
--- NOTE | 2020-10-03 10:39 | Event Note ---
Date: 10/03/20 Patient was seen and evaluated this morning, patient was severely demented and does not answer any questions. He said ok for any questions. Patient came from personal home care. Patient may need SNF placement. Patient has constipation and is on lactulose enema and Colace. GI consulted.
[2020-10-03] MEDS: metroNIDAZOLE 500 MG TAB PO SCH ×3 (11:21→23:25)
[2020-10-03] MEDS: ASPIRIN EC 81 MG TAB PO SCH (11:21)
[2020-10-03] MEDS: HEPARIN 5,000 UNIT/1 ML VIAL SUB-Q SCH ×3 (11:22→22:20)
[2020-10-03] MEDS: LOSARTAN 25 MG TAB PO SCH (11:22)
[2020-10-03] MEDS: CLOPIDOGREL 75 MG TAB PO SCH (11:22)
[2020-10-03] MEDS: FAMOTIDINE 20 MG/2 ML INJ IV SCH ×2 (11:22→23:26)
[2020-10-03] MEDS: IPRATROPIUM/ALBUTEROL SULFATE 3 ML AMPUL.NEB IH SCH (11:24)
[2020-10-03] MEDS: carvediloL 3.125 MG TAB PO SCH ×2 (11:26→17:24)
[2020-10-03] MEDS: SODIUM CHLORIDE 0.45% 1000 ML 1,000 ML IV SCH ×2 (11:26→17:24)
[2020-10-03] MEDS ORDERED: MAGNESIUM CITRATE 300 ML ORAL LIQD PO ONE (12:00)
[2020-10-03] MEDS: DONEPEZIL 5 MG TAB PO SCH (12:18)
[2020-10-03] MEDS: POLYETHYLENE GLYCOL 3350 17 GM POWDER PO SCH ×2 (15:29→23:25)
--- NOTE | 2020-10-03 16:39 | Gastroenterology Consultation ---
History of Present Illness - Reason for Consult Consult date: 10/03/[address] Colon Requesting physician: BAILEY ADMON - History of Present Illness The history is per the chart; the patient is demented and only says OK to questions. He was referred by his personal fdc for abdominal pain and distention. A CT scan showed a fecal impaction with early stercoral proctitis. He had a CT scan in July that also documented significant stool burden; it is not clear he was on a bowel regimen at his [facility]. He has rec'd an enema and a magnesium citrate; he has had two large BMs so far. There is no witnessed emesis, and he ate all of his lunch. There was no blood in the BM, and he has had no fevers. Past History Past Medical History: COPD (Dementia), heart failure, hypertension, other (Depression, Dementia, Rib Fractures) Past Surgical History: total hip replacement, Other (TENS Unit) Social history: other (Livers in a personal fdc). denies: smoking, alcoh ol abuse Family history: other (Unk) Medications and Allergies Allergies Allergy/AdvReac Type Severity Reaction Status Date / Time haloperidol [From Haldol] Allergy Unknown Verified 10/02/20 23:17 Penicillins Allergy Itching Verified 10/02/20 23:17 shellfish derived Allergy Unknown Verified 10/02/20 23:17 Home Medications Medication Instructions Recorded Confirmed Last Taken Type Albuterol Sulfate [Ventolin HFA] 2 puff IH PRN PRN 09/20/17 08/16/20 Unknown History Ergocalciferol [Vitamin D2] 1 cap PO 2XW 09/20/17 08/16/20 Unknown History ALBUTEROL NEB's [Proventil 0.083% 2.5 mg IH Q3HRT PRN #30 nebu 09/24/17 08/16/20 Unknown Rx NEBS] Acetaminophen [Acetaminophen TAB] 650 mg PO Q4H PRN #30 tablet 09/24/17 08/16/20 Unknown Rx Mirtazapine [Remeron 30mg TAB] 30 mg PO QHS PRN #30 tablet 09/24/17 08/16/20 Unknown Rx Famotidine [Pepcid] 40 mg PO QHS #10 tablet 07/21/18 08/16/20 Unknown Rx diphenhydrAMINE [Benadryl CAP] 25 mg PO Q6HR PRN #12 capsule 07/21/18 08/16/20 Unknown Rx Aspirin EC [Halfprin EC] 81 mg PO QDAY #100 tablet. 06/10/20 08/16/20 Unknown Rx AtorvaSTATin [Lipitor] 40 mg PO QHS #30 tablet 06/10/20 08/16/20 Unknown Rx Clopidogrel [Plavix] 75 mg PO QDAY #30 tablet 06/10/20 08/16/20 Unknown Rx ISOSORBIDE MONOnitrate [Imdur ER] 30 mg PO QDAY #30 tablet 06/10/20 08/16/20 Unknown Rx Ipratropium/Albuterol Sulfate 1 ampul IH DAILY #50 ampul.neb 06/10/20 08/16/20 Unknown Rx [DUONEB *Not for PRN Use*] Losartan [Cozaar] 25 mg PO QDAY #30 tablet 06/10/20 08/16/20 Unknown Rx Testosterone [Androderm] 1 each TD DAILY 06/10/20 08/16/20 Unknown Rx Tiotropium Br/Olodaterol HCl 1 puff IH DAILY #1 06/10/20 08/16/20 Unknown Rx [Stiolto Respimat Inhal [place]] carvediloL [Coreg] 3.125 mg PO BID #60 tablet 06/10/20 08/16/20 Unknown Rx donepeziL [Aricept] 5 mg PO DAILY #30 tablet 06/10/20 08/16/20 Unknown Rx predniSONE 10 mg PO QDAY #30 tablet 06/10/20 08/16/20 Unknown Rx Docusate Sodium [Colace CAP] 100 mg PO BID PRN #60 capsule 08/12/20 08/16/20 Unknown Rx Lactulose 10 gm PO DAILY PRN #60 ml 08/12/20 08/16/20 Unknown Rx Sodium Phosphate,[place]-Dibasic 118 ml RC ONCE #1 enema 08/12/20 08/16/20 Unknown Rx [Fleet Enema] levoFLOXacin [Levaquin TAB] 500 mg PO Q24H #5 tablet 08/16/20 Unknown Rx metroNIDAZOLE [Flagyl TAB] 500 mg PO Q8HR #15 tablet 08/16/20 Unknown Rx Active Meds: Active Medications Acetaminophen (Acetaminophen 325 Mg Tab) 650 mg PO Q4H PRN PRN Reason: Pain MILD(1-3)/Fever >100.5/[place] Albuterol (Albuterol 2.5 Mg/3 Ml Nebu) 2.5 mg IH Q3HRT PRN PRN Reason: Shortness Of Breath Albuterol/Ipratropium (Ipratropium/Albuterol Sulfate 3 Ml Ampul.Neb) 1 ampul IH DAILY [facility] Last Admin: 10/03/20 11:24 Dose: 1 ampul Documented by: Aspirin (Aspirin Ec 81 Mg Tab) 81 mg PO QDAY [facility] Last Admin: 10/03/20 11:21 Dose: 81 mg Documented by: Atorvastatin Calcium (Atorvastatin 40 Mg Tab) 40 mg PO QHS [facility] Carvedilol (Carvedilol 3.125 Mg Tab) 3.125 mg PO BID@0800,1700 [facility] Last Admin: 10/03/20 11:26 Dose: 3.125 mg Documented by: Clopidogrel Bisulfate (Clopidogrel 75 Mg Tab) 75 mg PO QDAY [facility] Last Admin: 10/03/20 11:22 Dose: 75 mg Documented by: Donepezil HCl (Donepezil 5 Mg Tab) 5 mg PO DAILY [facility] Last Admin: 10/03/20 12:18 Dose: 5 mg Documented by: Ergocalciferol (Ergocalciferol (Vit D2) 50,000 Unit Cap) unit PO 2XW [facility] Famotidine (Famotidine 20 Mg/2 Ml Inj) 20 mg IV BID [facility] Last Admin: 10/03/20 11:22 Dose: 20 mg Documented by: Heparin Sodium (Porcine) (Heparin 5,000 Unit/1 Ml Vial) 5,000 unit SUB-Q Q8HR [facility] Last Admin: 10/03/20 15:33 Dose: 5,000 unit Documented by: Sodium Chloride (Nacl 0.45% 1000 Ml) 1,000 mls @ 100 mls/hr IV DIRECT [facility] Last Admin: 10/03/20 11:26 Dose: 100 mls/hr Documented by: Isosorbide Mononitrate (Isosorbide Mononitrate Er 30 Mg Tab) 30 mg PO QDAY [facility] Last Admin: 10/03/20 11:26 Dose: 30 mg Documented by: Lactulose (Lactulose 20 Gm/30 Ml Oral Liqd) 10 gm PO DAILY PRN PRN Reason: Constipation Levofloxacin (Levofloxacin 250 Mg Tab) 250 mg PO Q24HR [facility]; Protocol Losartan Potassium (Losartan 25 Mg Tab) 25 mg PO QDAY [facility] Last Admin: 10/03/20 11:22 Dose: 25 mg Documented by: Metronidazole (Metronidazole 500 Mg Tab) 500 mg PO Q8HR [facility]; Protocol Last Admin: 10/03/20 15:32 Dose: 500 mg Documented by: Mirtazapine (Mirtazapine 30 Mg Tab) 30 mg PO QHS PRN PRN Reason: Sleep Ondansetron HCl (Ondansetron 4 Mg/2 Ml Inj) 4 mg IV Q8H PRN PRN Reason: Nausea And Vomiting Polyethylene Glycol (Polyethylene Glycol 3350 17 Gm Powder) 17 gm PO BID [facility] Stop: 10/05/20 22:01 Last Admin: 10/03/20 15:29 Dose: Not Given Documented by: Senna (Sennosides 8.6 Mg Tab) 17.2 mg PO QHS [facility] Sodium Chloride (Sodium Chloride 0.9% 10 Ml Flush Syringe) 10 ml IV BID [facility] Last Admin: 10/03/20 11:22 Dose: 10 ml Documented by: Sodium Chloride (Sodium Chloride 0.9% 10 Ml Flush Syringe) 10 ml IV PRN PRN PRN Reason: LINE FLUSH I HAVE REVIEWED/RECONCILED MEDICATIONS Review of Systems - Review of Systems ROS unobtainable: due to mental status Exam - Constitutional Vital Signs: Temp Pulse Resp BP Pulse Ox 97.9 F 60 20 142/76 95 10/03/20 08:38 10/03/20 11:26 10/03/20 08:38 10/03/20 08:38 10/03/20 08:39 General appearance: no acute distress - EENT Eyes: PERRL, EOM intact ENT: hearing intact, clear oral mucosa, no thrush - Neck Neck: supple, normal ROM - Respiratory Respiratory effort: normal Respiratory: bilateral: CTA - Cardiovascular Rhythm: regular Heart Sounds: Present: S1 & S2 Extremities: no ischemia, No edema - Gastrointestinal General gastrointestinal: Present: soft, non-tender, distended (Mild air distention), other (TENS in LLQ) Rectal Exam: stool brown - Integumentary Integumentary: Present: clear, warm, dry - Neurologic Neurological: other (Unable to answer questions/dementia; nonfocal exam - moves all extremeties) - Labs CBC & Chem 7: 10/02/20 22:39 10/02/20 22:39 Lab Results: Laboratory Results - last 24 hr 10/02/20 10/02/20 22:39 22:39 WBC 12.6 H RBC 4.06 Hgb 13.1 Hct 38.7 MCV 95 H MCH 32 MCHC 34 RDW 14.5 Plt Count 269 Lymph % (Auto) 18.8 [place] % (Auto) 9.6 H Eos % (Auto) 3.4 Baso % (Auto) 0.4 Lymph # (Auto) 2.4 [place] # (Auto) 1.2 H Eos # (Auto) 0.4 Baso # (Auto) 0.0 Seg Neutrophils % 67.8 Seg Neutrophils # 8.5 H Sodium 142 Potassium 4.9 Chloride 106.4 Carbon Dioxide 27 Anion Gap 14 BUN 27 H Creatinine 1.5 H Estimated GFR 44 BUN/Creatinine Ratio 18 Glucose 106 H Calcium 8.7 Total Bilirubin 0.60 Direct Bilirubin < 0.2 Indirect Bilirubin 0.4 AST 13 ALT 12 Alkaline Phosphatase 86 Total Protein 6.2 L Albumin 3.7 L Albumin/Globulin Ratio 1.5 Lipase 69 H Assessment and Plan - Patient Problems (1) Abnormal CT scan, colon Current Visit: Yes Status: Acute Plan to address problem: - Chronic constipation on serial CT scans; the patient will be placed on a bowel regimen, not PRN therapy. (2) Fecal impaction in rectum Current Visit: Yes Status: Acute Plan to address problem: - Resolving with PO medication, and no need for further enemas. - Since not vomiting and no bowel dilation, OK to continue PO meds/feeds. (3) Stercoral colitis Current Visit: Yes Status: Acute Plan to address problem: - Mild, and no signs of abscess or deep infection on CT/labs/physical exam. - No need for antibiotics at discharge.
[2020-10-03] MEDS ORDERED: LORazepam 2 MG/ML VIAL IV STA (22:30)
[2020-10-03] MEDS: SENNOSIDES 8.6 MG TAB PO SCH (23:26)
[2020-10-04] MEDS ORDERED: ZIPRASIDONE MESYLATE 20 MG VIAL IM ONE ×2 (00:26→08:30)
[2020-10-04] MEDS ORDERED: WATER FOR INJ Sterile (PF) 10 ML ONE (01:10)
[2020-10-04] MEDS: metroNIDAZOLE 500 MG TAB PO SCH ×3 (06:19→22:19)
[2020-10-04] MEDS: HEPARIN 5,000 UNIT/1 ML VIAL SUB-Q SCH ×3 (06:36→21:25)
[2020-10-04] MEDS ORDERED: WATER FOR INJ Sterile (PF) 10 ML IM ONE (08:30)
[2020-10-04 08:47] LABS: Hematocrit 38.9 % (35.5-45.6); Hemoglobin 13.4 gm/dl (11.8-15.2); Mean Corpuscular HGB Conc 34 % (32-34); Mean Corpuscular Volume 94 fl (84-94); Platelet Count 244 K/mm3 (140-440); Red Blood Count 4.14 M/mm3 (3.65-5.03); Red Cell Distribution Width 14.4 % (13.2-15.2)
[2020-10-04] MEDS: IPRATROPIUM/ALBUTEROL SULFATE 3 ML AMPUL.NEB IH SCH (08:50)
[2020-10-04 09:47] LABS: BUN/Creatinine Ratio 19; Blood Urea Nitrogen 19 mg/dL (9-20); Calcium 8.9 mg/dL (8.4-10.2); Hemolysis Index 15
[2020-10-04] MEDS: carvediloL 3.125 MG TAB PO SCH ×2 (10:10→18:39)
[2020-10-04] MEDS: LOSARTAN 25 MG TAB PO SCH (10:11)
[2020-10-04] MEDS: FAMOTIDINE 10 MG TAB PO SCH ×2 (10:12→22:20)
[2020-10-04] MEDS: ASPIRIN EC 81 MG TAB PO SCH (10:12)
[2020-10-04] MEDS: DONEPEZIL 5 MG TAB PO SCH (10:12)
[2020-10-04] MEDS: CLOPIDOGREL 75 MG TAB PO SCH (10:12)
[2020-10-04] MEDS: POLYETHYLENE GLYCOL 3350 17 GM POWDER PO SCH ×4 (10:12→22:20)
[2020-10-04] MEDS: levoFLOXacin 250 MG TAB PO SCH (10:12)
[2020-10-04] MEDS ORDERED: HALOPERIDOL LACTATE 5 MG/1 ML INJ IM PRN (12:02)
[2020-10-04] MEDS ORDERED: WATER FOR INJ Sterile (PF) 10 ML IM PRN (12:41)
[2020-10-04] MEDS: SODIUM CHLORIDE 0.45% 1000 ML 1,000 ML IV SCH ×2 (12:44→23:48)
[2020-10-04] MEDS ORDERED: ZIPRASIDONE MESYLATE 20 MG VIAL IM PRN (13:00)
--- NOTE | 2020-10-04 13:39 | Progress Note ---
Assessment and Plan Assessment and plan: 1) Abdominal pain Current Visit: Yes Status: Acute Qualifiers: Abdominal location: unspecified location Qualified Code(s): R10.9 - Unspecified abdominal pain Plan to address problem: Admit the patient to the medical floor. Put the patient on cardiac diet. Tylenol 650 mg p.o. every 6 hours as needed. Pepcid 20 mg IV twice daily. Colace 100 mg p.o. twice daily, lactulose 10 g per rectally daily Fleet Enema daily. Reconsult GI for evaluation (2) Stercoral colitis Current Visit: Yes Status: Acute Plan to address problem: Levaquin 500 mg p.o. daily. Metronidazole 500 mg p.o. every 8 hours. Pepcid 20 mg IV every 12 hours. Reconsult GI for evaluation and treatment. (3) Dementia Current Visit: Yes Status: Acute Plan to address problem: Stable. Aricept 5 mg p.o. daily. We will monitor the patient closely (4) CHF (congestive heart failure) Current Visit: Yes Status: Acute Plan to address problem: Stable. We will continue the home medication. (5) Constipation Current Visit: Yes Status: Acute Qualifiers: Constipation type: unspecified constipation type Plan to address problem: Colace 100 mg p.o. twice daily, lactulose 10 g per rectally daily .Fleet Enema daily. Reconsult GI for evaluation (6) Fecal impaction in rectum Current Visit: Yes Status: Acute Plan to address problem: Put the patient on cardiac diet. Tylenol 650 mg p.o. every 6 hours as needed. Pepcid 20 mg IV twice daily. Colace 100 mg p.o. twice daily, lactulose 10 g per rectally daily Fleet Enema daily. Reconsult GI for evaluation (7) Renal insufficiency Current Visit: Yes Status: Acute Plan to address problem: Abnormal saline at the rate of 100 cc/h. Avoid nephrotoxic drug. Recheck BMP in the morning (8) DVT prophylaxis Current Visit: Yes Status: Acute Plan to address problem: Heparin 5000 units subcu every 8 hours for DVT prophylaxis. Pepcid 20 mg IV every 12 hours for GI prophylaxis. Patient is a full code 10/04/2020 -Patient was seen by GI and recommend him to be on schedule educations for constipation. Patient had to be bowel movements. -Patient become agitated and more confused this morning likely due to delirium -Once his delirium resolved patient can be discharged back to personal home care. History Interval history: Patient was seen and evaluated this morning Patient was agitated Patient was severely demented Hospitalist Physical - Physical exam Narrative exam: Not in cardiopulmonary distress. The patient appeared well nourished and normally developed. Vital signs as documented. Head exam is unremarkable. No scleral icterus . Neck is without jugular venous distension, thyromegaly, or carotid bruits. Lungs are clear to auscultation. Cardiac exam reveals regular rate and Rhythm. Abdominal exam reveals normal bowel sounds, nontender, no organomegaly. Extremities are nonedematous and both femoral and pedal pulses are normal. 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 - Constitutional Vitals: Temp Pulse Resp BP Pulse Ox 97.6 F 86 18 98/47 99 10/04/20 04:47 10/04/20 10:10 10/04/20 08:50 10/04/20 10:10 10/04/20 10:00 General appearance: Present: no acute distress, well-nourished Results - Labs CBC & Chem 7: 10/04/20 08:26 10/04/20 08:26 Labs: Laboratory Last Values WBC 24.1 K/mm3 (4.5-11.0) H 10/04/20 08:26 RBC 4.14 M/mm3 (3.65-5.03) 10/04/20 08:26 Hgb 13.4 gm/dl (11.8-15.2) 10/04/20 08:26 Hct 38.9 % (35.5-45.6) 10/04/20 08:26 MCV 94 fl (84-94) 10/04/20 08:26 MCH 32 pg (28-32) 10/04/20 08:26 MCHC 34 % (32-34) 10/04/20 08:26 RDW 14.4 % (13.2-15.2) 10/04/20 08:26 Plt Count 244 K/mm3 (140-440) 10/04/20 08:26 Lymph % (Auto) 18.8 % (13.4-35.0) 10/02/20 22:39 [place] % (Auto) 9.6 % (0.0-7.3) H 10/02/20 22:39 Eos % (Auto) 3.4 % (0.0-4.3) 10/02/20 22:39 Baso % (Auto) 0.4 % (0.0-1.8) 10/02/20 22:39 Lymph # (Auto) 2.4 K/mm3 (1.2-5.4) 10/02/20 22:39 [place] # (Auto) 1.2 K/mm3 (0.0-0.8) H 10/02/20 22:39 Eos # (Auto) 0.4 K/mm3 (0.0-0.4) 10/02/20 22:39 Baso # (Auto) 0.0 K/mm3 (0.0-0.1) 10/02/20 22:39 Seg Neutrophils % 67.8 % (40.0-70.0) 10/02/20 22:39 Seg Neutrophils # 8.5 K/mm3 (1.8-7.7) H 10/02/20 22:39 Sodium 140 mmol/L (137-145) 10/04/20 08:26 Potassium 4.6 mmol/L (3.6-5.0) 10/04/20 08:26 Chloride 104.2 mmol/L (98-107) 10/04/20 08:26 Carbon Dioxide 28 mmol/L (22-30) 10/04/20 08:26 Anion Gap 12 mmol/L 10/04/20 08:26 BUN 19 mg/dL (9-20) 10/04/20 08:26 Creatinine 1.0 mg/dL (0.8-1.3) 10/04/20 08:26 Estimated GFR > 60 ml/min 10/04/20 08:26 BUN/Creatinine Ratio 19 % 10/04/20 08:26 Glucose 90 mg/dL (75-100) 10/04/20 08:26 POC Glucose 104 mg/dL (70-105) 10/04/20 10:50 Calcium 8.9 mg/dL (8.4-10.2) 10/04/20 08:26 Total Bilirubin 0.60 mg/dL (0.1-1.2) 10/02/20 22:39 Direct Bilirubin < 0.2 mg/dL (0-0.2) 10/02/20 22:39 Indirect Bilirubin 0.4 mg/dL 10/02/20 22:39 AST 13 units/L (5-40) 10/02/20 22:39 ALT 12 units/L (7-56) 10/02/20 22:39 Alkaline Phosphatase 86 units/L (35-129) 10/02/20 22:39 Total Protein 6.2 g/dL (6.3-8.2) L 10/02/20 22:39 Albumin 3.7 g/dL (3.9-5) L 10/02/20 22:39 Albumin/Globulin Ratio 1.5 % 10/02/20 22:39 Lipase 69 units/L (13-60) H 10/02/20 22:39 Yanez/IV: Voiding Method Incontinent Active Medications - Current Medications Current Medications: Generic Name Dose Route Start Last Admin Trade Name Freq PRN Reason Stop Dose Admin Acetaminophen 650 mg 10/03/20 03:59 Acetaminophen 325 Mg Tab PO Q4H PRN Pain MILD(1-3)/Fever >100.5/HAMLIN Albuterol 2.5 mg 10/03/20 04:03 Albuterol 2.5 Mg/3 Ml Nebu IH Q3HRT PRN Shortness Of Breath Albuterol/Ipratropium 1 ampul 10/03/20 10:00 10/04/20 08:50 Ipratropium/Albuterol Sulfate 3 Ml Ampul.Neb IH 1 ampul DAILY NILDA Administration Aspirin 81 mg 10/03/20 10:00 10/04/20 10:12 Aspirin Ec 81 Mg Tab PO 81 mg QDAY NILDA Administration Atorvastatin Calcium 40 mg 10/03/20 22:00 10/03/20 23:25 Atorvastatin 40 Mg Tab PO Not Given QHS NILDA Carvedilol 3.125 mg 10/03/20 10:00 10/04/20 10:10 Carvedilol 3.125 Mg Tab PO Not Given BID@0800,1700 [facility] Clopidogrel Bisulfate 75 mg 10/03/20 10:00 10/04/20 10:12 Clopidogrel 75 Mg Tab PO 75 mg QDAY NILDA Administration Donepezil HCl 5 mg 10/03/20 10:00 10/04/20 10:12 Donepezil 5 Mg Tab PO 5 mg DAILY [facility] Administration Ergocalciferol 50,000 unit 10/06/20 10:00 Ergocalciferol (Vit D2) 50,000 Unit Cap PO Stewart@1000 NILDA Famotidine 10 mg 10/04/20 10:00 10/04/20 10:12 Famotidine 10 Mg Tab PO 10 mg BID NILDA Administration Heparin Sodium (Porcine) 5,000 unit 10/03/20 06:00 10/04/20 06:36 Heparin 5,000 Unit/1 Ml Vial SUB-Q 5,000 unit Q8HR NILDA Administration Sodium Chloride 1,000 mls @ 100 mls/hr 10/03/20 04:00 10/04/20 12:44 Nacl 0.45% 1000 Ml IV 100 mls/hr DIRECT NILDA Administration Isosorbide Mononitrate 30 mg 10/03/20 10:00 10/04/20 10:11 Isosorbide Mononitrate Er 30 Mg Tab PO Not Given QDAY [facility] Lactulose 10 gm 10/03/20 04:03 Lactulose 20 Gm/30 Ml Oral Liqd PO DAILY PRN Constipation Levofloxacin 250 mg 10/04/20 10:00 10/04/20 10:12 Levofloxacin 250 Mg Tab PO 250 mg Q24HR [facility] Administration Protocol Losartan Potassium 25 mg 10/03/20 10:00 10/04/20 10:11 Losartan 25 Mg Tab PO Not Given QDAY [facility] Metronidazole 500 mg 10/03/20 06:00 10/04/20 06:19 Metronidazole 500 Mg Tab PO Not Given Q8HR [facility] Protocol Mirtazapine 30 mg 10/03/20 04:03 10/03/20 23:25 Mirtazapine 30 Mg Tab PO 30 mg QHS PRN Administration Sleep Ondansetron HCl 4 mg 10/03/20 03:59 Ondansetron 4 Mg/2 Ml Inj IV Q8H PRN Nausea And Vomiting Polyethylene Glycol 17 gm 10/03/20 12:00 10/04/20 12:44 Polyethylene Glycol 3350 17 Gm Powder PO 10/05/20 22:01 17 gm BID NILDA Administration Senna 17.2 mg 10/03/20 22:00 10/03/20 23:26 Sennosides 8.6 Mg Tab PO Not Given QHS NILDA Sodium Chloride 10 ml 10/03/20 10:00 10/04/20 10:11 Sodium Chloride 0.9% 10 Ml Flush Syringe IV 10 ml BID NILDA Administration Sodium Chloride 10 ml 10/03/20 03:59 Sodium Chloride 0.9% 10 Ml Flush Syringe IV PRN PRN LINE FLUSH Sterile Water 1.2 ml 10/04/20 12:41 Water For Inj Sterile (Pf) 10 Ml IM Q4H PRN GEODON DILUTION Ziprasidone 10 mg 10/04/20 13:00 Ziprasidone Mesylate 20 Mg Vial IM Q4H PRN AGITATION Nutrition/Malnutrition Assess - Dietary Evaluation Nutrition/Malnutrition Findings: Nutrition Notes Start: 10/04/20 12:44 Freq: Status: Active Protocol: Document 10/04/20 12:44 (Rec: 10/04/20 12:51 MK [email or web address]) Nutrition Notes Need for Assessment generated from: MD 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 RN screen for MST. Pt unable to communicate well. Per RN, pt refused breakfast and lunch. Burn Absent Trauma Absent GI Symptoms Constipation Current % PO Negligible Minimum of two criteria No physical signs of malnutrition #1 Nutrition Diagnosis Inadequate oral intake Etiology fecal impaction, dementia As Evidenced by Signs and Symptoms pt refusing meals Is patient on ventilator? No Is Patient Ambulatory and/or Out of Bed No REE-([facility]-confined to bed) 1983.132 Kcal/Kg value to use for calculation 16 Approximate Energy Requirements Using 1560 kcal/Kg Calculation Used for Recommendations Kcal/kg Additional Notes Protein: (1-1.2g/kg AdjBW: 86kg) 86-103g Fluid: (30 ml/kg) 2.9L Nutrition Intervention Change Diet Order: Continue Add Supplement/Snack (indicate name/kcal Ensure Enlive TID /protein ) Provides kCal: 1,050 Provides Protein (gm) 60 Goal #1 Meet at least 75% of energy and protein needs via PO and ONS Anticipated Discharge Needs: cardiac Follow-Up By: 10/07/20 Additional Comments FU for intakes and ONS tolerance
--- NOTE | 2020-10-04 13:47 | Gastroenterology Progress Note ---
Assessment and Plan - Patient Problems (1) Abnormal CT scan, colon Current Visit: Yes Status: Acute Plan to address problem: - Chronic constipation on serial CT scans; the patient will be placed on a bowel regimen, not PRN therapy. (2) Fecal impaction in rectum Current Visit: Yes Status: Acute Plan to address problem: - Resolving with PO medication, and no need for further enemas. - Since not vomiting and no bowel dilation, OK to continue PO meds/feeds. - We will sign off; please call if needed. (3) Stercoral colitis Current Visit: Yes Status: Acute Plan to address problem: - Mild, and no signs of abscess or deep infection on CT/physical exam. - No need for antibiotics at discharge if WBC is resolved. - We will sign off; please call if needed. Subjective Date of service: 10/04/20 Principal diagnosis: Fecal impaction Interval history: The patient has has had multiple non-bloody BMs, and no N/V, and confused but no obvious stomach pain. Objective - Constitutional Vitals: Temp Pulse Resp BP Pulse Ox 97.6 F 86 18 98/47 99 10/04/20 04:47 10/04/20 10:10 10/04/20 08:50 10/04/20 10:10 10/04/20 10:00 General appearance: no acute distress - EENT Eyes: PERRL, EOM intact - Respiratory Respiratory effort: normal Respiratory: bilateral: CTA - Cardiovascular Rhythm: regular Heart Sounds: Present: S1 & S2 - Gastrointestinal General gastrointestinal: Present: soft, non-tender, non-distended - Labs CBC & Chem 7: 10/04/20 08:26 10/04/20 08:26 Labs: Laboratory Results - last 24 hr 10/04/20 10/04/20 10/04/20 07:49 08:26 08:26 WBC 24.1 H RBC 4.14 Hgb 13.4 Hct 38.9 MCV 94 MCH 32 MCHC 34 RDW 14.4 Plt Count 244 Sodium 140 Potassium 4.6 Chloride 104.2 Carbon Dioxide 28 Anion Gap 12 BUN 19 Creatinine 1.0 Estimated GFR > 60 BUN/Creatinine Ratio 19 Glucose 90 POC Glucose 103 Calcium 8.9 10/04/20 10:50 WBC RBC Hgb Hct MCV MCH MCHC RDW Plt Count Sodium Potassium Chloride Carbon Dioxide Anion Gap BUN Creatinine Estimated GFR BUN/Creatinine Ratio Glucose POC Glucose 104 Calcium
[2020-10-04 13:57] LABS: RBC Morphology Normal; Total Cells Counted 100
[2020-10-04 13:58] LABS: Platelet Estimate Consistent w Auto
[2020-10-04] MEDS: SENNOSIDES 8.6 MG TAB PO SCH (22:21)
[2020-10-05] MEDS: HEPARIN 5,000 UNIT/1 ML VIAL SUB-Q SCH ×3 (05:48→22:23)
[2020-10-05] MEDS: metroNIDAZOLE 500 MG TAB PO SCH ×3 (06:31→22:31)
[2020-10-05 09:15] LABS: BUN/Creatinine Ratio 16; Blood Urea Nitrogen 14 mg/dL (9-20); Calcium 8.7 mg/dL (8.4-10.2); Hemolysis Index 5
[2020-10-05] MEDS: IPRATROPIUM/ALBUTEROL SULFATE 3 ML AMPUL.NEB IH SCH (09:19)
[2020-10-05] MEDS: carvediloL 3.125 MG TAB PO SCH ×2 (10:00→16:42)
[2020-10-05] MEDS: ASPIRIN EC 81 MG TAB PO SCH (10:00)
[2020-10-05] MEDS: LOSARTAN 25 MG TAB PO SCH (10:00)
[2020-10-05] MEDS: levoFLOXacin 250 MG TAB PO SCH (10:00)
[2020-10-05] MEDS: CLOPIDOGREL 75 MG TAB PO SCH (10:00)
[2020-10-05] MEDS: FAMOTIDINE 10 MG TAB PO SCH ×2 (10:00→22:22)
[2020-10-05] MEDS: POLYETHYLENE GLYCOL 3350 17 GM POWDER PO SCH ×2 (10:00→22:23)
[2020-10-05] MEDS: DONEPEZIL 5 MG TAB PO SCH (10:00)
--- NOTE | 2020-10-05 11:16 | Progress Note ---
Assessment and Plan Assessment and plan: 1) Abdominal pain Current Visit: Yes Status: Acute Qualifiers: Abdominal location: unspecified location Qualified Code(s): R10.9 - Unspecified abdominal pain Plan to address problem: Admit the patient to the medical floor. Put the patient on cardiac diet. Tylenol 650 mg p.o. every 6 hours as needed. Pepcid 20 mg IV twice daily. Colace 100 mg p.o. twice daily, lactulose 10 g per rectally daily Fleet Enema daily. Reconsult GI for evaluation (2) Stercoral colitis Current Visit: Yes Status: Acute Plan to address problem: Levaquin 500 mg p.o. daily. Metronidazole 500 mg p.o. every 8 hours. Pepcid 20 mg IV every 12 hours. Reconsult GI for evaluation and treatment. (3) Dementia Current Visit: Yes Status: Acute Plan to address problem: Stable. Aricept 5 mg p.o. daily. We will monitor the patient closely (4) CHF (congestive heart failure) Current Visit: Yes Status: Acute Plan to address problem: Stable. We will continue the home medication. (5) Constipation Current Visit: Yes Status: Acute Qualifiers: Constipation type: unspecified constipation type Plan to address problem: Colace 100 mg p.o. twice daily, lactulose 10 g per rectally daily .Fleet Enema daily. Reconsult GI for evaluation (6) Fecal impaction in rectum Current Visit: Yes Status: Acute Plan to address problem: Put the patient on cardiac diet. Tylenol 650 mg p.o. every 6 hours as needed. Pepcid 20 mg IV twice daily. Colace 100 mg p.o. twice daily, lactulose 10 g per rectally daily Fleet Enema daily. Reconsult GI for evaluation (7) Renal insufficiency Current Visit: Yes Status: Acute Plan to address problem: Abnormal saline at the rate of 100 cc/h. Avoid nephrotoxic drug. Recheck BMP in the morning (8) DVT prophylaxis Current Visit: Yes Status: Acute Plan to address problem: Heparin 5000 units subcu every 8 hours for DVT prophylaxis. Pepcid 20 mg IV every 12 hours for GI prophylaxis. Patient is a full code 10/04/2020 -Patient was seen by GI and recommend him to be on schedule educations for constipation. Patient had to be bowel movements. -Patient become agitated and more confused this morning likely due to delirium -Once his delirium resolved patient can be discharged back to personal home care. 10/05/2020 Patient with colitis. Continue Levaquin and Flagyl. WBC was 24.1 yesterday. Repeat ordered for today, pending. History Interval history: patient has dementia, cannot give much history, No fever Hospitalist Physical - Physical exam Narrative exam: Not in cardiopulmonary distress. The patient appeared well nourished and normally developed. Vital signs as documented. Head exam is unremarkable. No scleral icterus . Neck is without jugular venous distension, thyromegaly, or carotid bruits. Lungs are clear to auscultation. Cardiac exam reveals regular rate and Rhythm. Abdominal exam reveals normal bowel sounds, nontender, no organomegaly. Extremities are nonedematous and both femoral and pedal pulses are normal. 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 on and off - Constitutional Vitals: Temp Pulse Resp BP Pulse Ox 97.4 F L 48 L 19 142/60 97 10/04/20 23:50 10/04/20 18:49 10/04/20 18:49 10/05/20 00:04 10/04/20 23:50 General appearance: Present: no acute distress, obese Results - Labs CBC & Chem 7: 10/04/20 08:26 10/05/20 06:50 Labs: Laboratory Last Values WBC 24.1 K/mm3 (4.5-11.0) H 10/04/20 08:26 RBC 4.14 M/mm3 (3.65-5.03) 10/04/20 08:26 Hgb 13.4 gm/dl (11.8-15.2) 10/04/20 08:26 Hct 38.9 % (35.5-45.6) 10/04/20 08:26 MCV 94 fl (84-94) 10/04/20 08:26 MCH 32 pg (28-32) 10/04/20 08:26 MCHC 34 % (32-34) 10/04/20 08:26 RDW 14.4 % (13.2-15.2) 10/04/20 08:26 Plt Count 244 K/mm3 (140-440) 10/04/20 08:26 Lymph % (Auto) 18.8 % (13.4-35.0) 10/02/20 22:39 [place] % (Auto) 9.6 % (0.0-7.3) H 10/02/20 22:39 Eos % (Auto) 3.4 % (0.0-4.3) 10/02/20 22:39 Baso % (Auto) 0.4 % (0.0-1.8) 10/02/20 22:39 Lymph # (Auto) 2.4 K/mm3 (1.2-5.4) 10/02/20 22:39 [place] # (Auto) 1.2 K/mm3 (0.0-0.8) H 10/02/20 22:39 Eos # (Auto) 0.4 K/mm3 (0.0-0.4) 10/02/20 22:39 Baso # (Auto) 0.0 K/mm3 (0.0-0.1) 10/02/20 22:39 Add Manual Diff Complete 10/04/20 08:26 Total Counted 100 10/04/20 08:26 Seg Neutrophils % 67.8 % (40.0-70.0) 10/02/20 22:39 Seg Neuts % (Manual) 89.0 % (40.0-70.0) H 10/04/20 08:26 Lymphocytes % (Manual) 1.0 % (13.4-35.0) L 10/04/20 08:26 Monocytes % (Manual) 10.0 % (0.0-7.3) H 10/04/20 08:26 Nucleated RBC % Not Reportable 10/04/20 08:26 Seg Neutrophils # 8.5 K/mm3 (1.8-7.7) H 10/02/20 22:39 Seg Neutrophils # Man 21.4 K/mm3 (1.8-7.7) H 10/04/20 08:26 Band Neutrophils # 0.0 K/mm3 10/04/20 08:26 Lymphocytes # (Manual) 0.2 K/mm3 (1.2-5.4) L 10/04/20 08:26 Abs React Lymphs (Man) 0.0 K/mm3 10/04/20 08:26 Monocytes # (Manual) 2.4 K/mm3 (0.0-0.8) H 10/04/20 08:26 Eosinophils # (Manual) 0.0 K/mm3 (0.0-0.4) 10/04/20 08:26 Basophils # (Manual) 0.0 K/mm3 (0.0-0.1) 10/04/20 08:26 Metamyelocytes # 0.0 K/mm3 10/04/20 08:26 Myelocytes # 0.0 K/mm3 10/04/20 08:26 Promyelocytes # 0.0 K/mm3 10/04/20 08:26 Blast Cells # 0.0 K/mm3 10/04/20 08:26 WBC Morphology Not Reportable 10/04/20 08:26 Hypersegmented Neuts Not Reportable 10/04/20 08:26 Hyposegmented Neuts Not Reportable 10/04/20 08:26 Hypogranular Neuts Not Reportable 10/04/20 08:26 Smudge Cells Not Reportable 10/04/20 08:26 Toxic Granulation Not Reportable 10/04/20 08:26 Toxic Vacuolation Not Reportable 10/04/20 08:26 Dohle Bodies Not Reportable 10/04/20 08:26 Pelger-Huet Anomaly Not Reportable 10/04/20 08:26 Vincenzo Rods Not Reportable 10/04/20 08:26 Platelet Estimate Consistent w auto 10/04/20 08:26 Clumped Platelets Not Reportable 10/04/20 08:26 Plt Clumps, EDTA Not Reportable 10/04/20 08:26 Large Platelets Not Reportable 10/04/20 08:26 Giant Platelets Not Reportable 10/04/20 08:26 Platelet Satelliting Not Reportable 10/04/20 08:26 Plt Morphology Comment Not Reportable 10/04/20 08:26 RBC Morphology Normal 10/04/20 08:26 Dimorphic RBCs Not Reportable 10/04/20 08:26 Polychromasia Not Reportable 10/04/20 08:26 Hypochromasia Not Reportable 10/04/20 08:26 Poikilocytosis Not Reportable 10/04/20 08:26 Anisocytosis Not Reportable 10/04/20 08:26 Microcytosis Not Reportable 10/04/20 08:26 Macrocytosis Not Reportable 10/04/20 08:26 Spherocytes Not Reportable 10/04/20 08:26 Pappenheimer Bodies Not Reportable 10/04/20 08:26 Sickle Cells Not Reportable 10/04/20 08:26 Target Cells Not Reportable 10/04/20 08:26 Tear Drop Cells Not Reportable 10/04/20 08:26 Ovalocytes Not Reportable 10/04/20 08:26 Helmet Cells Not Reportable 10/04/20 08:26 [place] Bodies Not Reportable 10/04/20 08:26 [place] Rings Not Reportable 10/04/20 08:26 [place] Cells Not Reportable 10/04/20 08:26 Bite Cells Not Reportable 10/04/20 08:26 Crenated Cell Not Reportable 10/04/20 08:26 Elliptocytes Not Reportable 10/04/20 08:26 Acanthocytes (Spur) Not Reportable 10/04/20 08:26 Rouleaux Not Reportable 10/04/20 08:26 Hemoglobin C Crystals Not Reportable 10/04/20 08:26 Schistocytes Not Reportable 10/04/20 08:26 Malaria parasites Not Reportable 10/04/20 08:26 [place] Bodies Not Reportable 10/04/20 08:26 Hem Pathologist Commnt No 10/04/20 08:26 Sodium 142 mmol/L (137-145) 10/05/20 06:50 Potassium 4.1 mmol/L (3.6-5.0) 10/05/20 06:50 Chloride 105.0 mmol/L (98-107) 10/05/20 06:50 Carbon Dioxide 26 mmol/L (22-30) 10/05/20 06:50 Anion Gap 15 mmol/L 10/05/20 06:50 BUN 14 mg/dL (9-20) 10/05/20 06:50 Creatinine 0.9 mg/dL (0.8-1.3) 10/05/20 06:50 Estimated GFR > 60 ml/min 10/05/20 06:50 BUN/Creatinine Ratio 16 % 10/05/20 06:50 Glucose 50 mg/dL (75-100) L 10/05/20 06:50 POC Glucose 91 mg/dL (70-105) 10/04/20 16:30 Calcium 8.7 mg/dL (8.4-10.2) 10/05/20 06:50 Total Bilirubin 0.60 mg/dL (0.1-1.2) 10/02/20 22:39 Direct Bilirubin < 0.2 mg/dL (0-0.2) 10/02/20 22:39 Indirect Bilirubin 0.4 mg/dL 10/02/20 22:39 AST 13 units/L (5-40) 10/02/20 22:39 ALT 12 units/L (7-56) 10/02/20 22:39 Alkaline Phosphatase 86 units/L (35-129) 10/02/20 22:39 Total Protein 6.2 g/dL (6.3-8.2) L 10/02/20 22:39 Albumin 3.7 g/dL (3.9-5) L 10/02/20 22:39 Albumin/Globulin Ratio 1.5 % 10/02/20 22:39 Lipase 69 units/L (13-60) H 10/02/20 22:39 Yanez/IV: Voiding Method Incontinent Active Medications - Current Medications Current Medications: Generic Name Dose Route Start Last Admin Trade Name Freq PRN Reason Stop Dose Admin Acetaminophen 650 mg 10/03/20 03:59 Acetaminophen 325 Mg Tab PO Q4H PRN Pain MILD(1-3)/Fever >100.5/[place] Albuterol 2.5 mg 10/03/20 04:03 Albuterol 2.5 Mg/3 Ml Nebu IH Q3HRT PRN Shortness Of Breath Albuterol/Ipratropium 1 ampul 10/03/20 10:00 10/05/20 09:19 Ipratropium/Albuterol Sulfate 3 Ml Ampul.Neb IH 1 ampul DAILY NILDA Administration Aspirin 81 mg 10/03/20 10:00 10/04/20 10:12 Aspirin Ec 81 Mg Tab PO 81 mg QDAY NILDA Administration Atorvastatin Calcium 40 mg 10/03/20 22:00 10/04/20 22:19 Atorvastatin 40 Mg Tab PO Not Given QHS NILDA Carvedilol 3.125 mg 10/03/20 10:00 10/04/20 18:39 Carvedilol 3.125 Mg Tab PO Not Given BID@0800,1700 [facility] Clopidogrel Bisulfate 75 mg 10/03/20 10:00 10/04/20 10:12 Clopidogrel 75 Mg Tab PO 75 mg QDAY NILDA Administration Donepezil HCl 5 mg 10/03/20 10:00 10/04/20 10:12 Donepezil 5 Mg Tab PO 5 mg DAILY NILDA Administration Ergocalciferol 50,000 unit 10/06/20 10:00 Ergocalciferol (Vit D2) 50,000 Unit Cap PO Stewart@1000 [facility] Famotidine 10 mg 10/04/20 10:00 10/04/20 22:20 Famotidine 10 Mg Tab PO Not Given BID [facility] Heparin Sodium (Porcine) 5,000 unit 10/03/20 06:00 10/05/20 05:48 Heparin 5,000 Unit/1 Ml Vial SUB-Q 5,000 unit Q8HR NILDA Administration Sodium Chloride 1,000 mls @ 100 mls/hr 10/03/20 04:00 10/04/20 23:48 Nacl 0.45% 1000 Ml IV 100 mls/hr DIRECT NILDA Administration Isosorbide Mononitrate 30 mg 10/03/20 10:00 10/04/20 10:11 Isosorbide Mononitrate Er 30 Mg Tab PO Not Given QDAY [facility] Lactulose 10 gm 10/03/20 04:03 Lactulose 20 Gm/30 Ml Oral Liqd PO DAILY PRN Constipation Levofloxacin 250 mg 10/04/20 10:00 10/04/20 10:12 Levofloxacin 250 Mg Tab PO 250 mg Q24HR [facility] Administration Protocol Losartan Potassium 25 mg 10/03/20 10:00 10/04/20 10:11 Losartan 25 Mg Tab PO Not Given QDAY [facility] Metronidazole 500 mg 10/03/20 06:00 10/05/20 06:31 Metronidazole 500 Mg Tab PO Not Given Q8HR [facility] Protocol Mirtazapine 30 mg 10/03/20 04:03 10/03/20 23:25 Mirtazapine 30 Mg Tab PO 30 mg QHS PRN Administration Sleep Ondansetron HCl 4 mg 10/03/20 03:59 Ondansetron 4 Mg/2 Ml Inj IV Q8H PRN Nausea And Vomiting Polyethylene Glycol 17 gm 10/03/20 12:00 10/04/20 22:20 Polyethylene Glycol 3350 17 Gm Powder PO 10/05/20 22:01 Not Given BID [facility] Senna 17.2 mg 10/03/20 22:00 10/04/20 22:21 Sennosides 8.6 Mg Tab PO Not Given QHS [facility] Sodium Chloride 10 ml 10/03/20 10:00 10/04/20 22:15 Sodium Chloride 0.9% 10 Ml Flush Syringe IV 10 ml BID NILDA Administration Sodium Chloride 10 ml 10/03/20 03:59 Sodium Chloride 0.9% 10 Ml Flush Syringe IV PRN PRN LINE FLUSH Sterile Water 1.2 ml 10/04/20 12:41 Water For Inj Sterile (Pf) 10 Ml IM Q4H PRN GEODON DILUTION Ziprasidone 10 mg 10/04/20 13:00 10/05/20 05:21 Ziprasidone Mesylate 20 Mg Vial IM 10 mg Q4H PRN Administration AGITATION Nutrition/Malnutrition Assess - Dietary Evaluation Nutrition/Malnutrition Findings: Nutrition Notes Start: 10/04/20 12:44 Freq: Status: Active Protocol: Document 10/04/20 12:44 ANATOLIY (Rec: 10/04/20 12:51 ANATOLIY [id number]) Nutrition Notes Need for Assessment generated from: MD Order,section leader,MST Initial or Follow up Assessment Current Diagnosis Acute Kidney Injury,COPD, Hypertension,Heart Failure Other Pertinent Diagnosis fecal impaction, dehydration, dementia Current Diet Cardiac Labs/Tests Reviewed Pertinent Medications 1/2 NS at 100 ml/hr Miralax Height 5 ft 10 in Weight 97.522 kg [place] Body Weight (kg) 75.45 BMI 30.8 Weight change and time frame Per previous admissions, pt has gained wt Weight Status Obese Subjective/Other Information MD order for ONS. RN screen for MST. Pt unable to communicate well. Per RN, pt refused breakfast and lunch. Burn Absent Trauma Absent GI Symptoms Constipation Current % PO Negligible Minimum of two criteria No physical signs of malnutrition #1 Nutrition Diagnosis Inadequate oral intake Etiology fecal impaction, dementia As Evidenced by Signs and Symptoms pt refusing meals Is patient on ventilator? No Is Patient Ambulatory and/or Out of Bed No REE-([facility]-confined to bed) 1982.132 Kcal/Kg value to use for calculation 16 Approximate Energy Requirements Using 1560 kcal/Kg Calculation Used for Recommendations Kcal/kg Additional Notes Protein: (1-1.2g/kg AdjBW: 86kg) 86-103g Fluid: (30 ml/kg) 2.9L Nutrition Intervention Change Diet Order: Continue Add Supplement/Snack (indicate name/kcal Ensure Enlive TID /protein ) Provides kCal: 1,050 Provides Protein (gm) 60 Goal #1 Meet at least 75% of energy and protein needs via PO and ONS Anticipated Discharge Needs: cardiac Follow-Up By: 10/07/20 Additional Comments FU for intakes and ONS tolerance
[2020-10-05 15:22] LABS: Basophils # (Auto) 0.1 K/mm3 (0.0-0.1); Basophils % (Auto) 0.5 % (0.0-1.8); Eosinophils # (Auto) 0.6 K/mm3 (0.0-0.4); Eosinophils % (Auto) 5.3 % (0.0-4.3); Hematocrit 38.4 % (35.5-45.6); Hemoglobin 13.1 gm/dl (11.8-15.2); Lymphocytes # (Auto) 1.3 K/mm3 (1.2-5.4); Lymphocytes % (Auto) 11.6 % (13.4-35.0); Mean Corpuscular HGB Conc 34 % (32-34); Mean Corpuscular Volume 95 fl (84-94); Monocytes # (Auto) 0.6 K/mm3 (0.0-0.8); Monocytes % (Auto) 5.5 % (0.0-7.3); Platelet Count 228 K/mm3 (140-440); Red Blood Count 4.03 M/mm3 (3.65-5.03); Red Cell Distribution Width 14.1 % (13.2-15.2)
[2020-10-05] MEDS: SODIUM CHLORIDE 0.45% 1000 ML 1,000 ML IV SCH (18:25)
[2020-10-05] MEDS: SENNOSIDES 8.6 MG TAB PO SCH (22:22)
[2020-10-06] MEDS: metroNIDAZOLE 500 MG TAB PO SCH ×3 (06:07→21:51)
[2020-10-06] MEDS: HEPARIN 5,000 UNIT/1 ML VIAL SUB-Q SCH ×3 (06:07→21:51)
[2020-10-06 06:42] LABS: Hematocrit 35.2 % (35.5-45.6); Hemoglobin 12.1 gm/dl (11.8-15.2); Mean Corpuscular HGB Conc 34 % (32-34); Mean Corpuscular Volume 95 fl (84-94); Platelet Count 206 K/mm3 (140-440); Red Blood Count 3.69 M/mm3 (3.65-5.03); Red Cell Distribution Width 14.4 % (13.2-15.2)
[2020-10-06] MEDS: carvediloL 3.125 MG TAB PO SCH ×2 (08:00→17:00)
[2020-10-06] MEDS: IPRATROPIUM/ALBUTEROL SULFATE 3 ML AMPUL.NEB IH SCH (09:13)
[2020-10-06] MEDS: DONEPEZIL 5 MG TAB PO SCH (09:18)
[2020-10-06] MEDS: CLOPIDOGREL 75 MG TAB PO SCH (09:19)
[2020-10-06] MEDS: LOSARTAN 25 MG TAB PO SCH (09:20)
[2020-10-06] MEDS: FAMOTIDINE 10 MG TAB PO SCH ×2 (09:20→21:51)
[2020-10-06] MEDS: ASPIRIN EC 81 MG TAB PO SCH (09:20)
[2020-10-06] MEDS: levoFLOXacin 500 MG TAB PO SCH (09:20)
[2020-10-06] MEDS ORDERED: ERGOCALCIFEROL (VIT D2) 50,000 UNIT CAP PO SCH (10:00)
--- NOTE | 2020-10-06 10:40 | Progress Note ---
Assessment and Plan Assessment and plan: 1) Abdominal pain Current Visit: Yes Status: Acute Qualifiers: Abdominal location: unspecified location Qualified Code(s): R10.9 - Unspecified abdominal pain Plan to address problem: Admit the patient to the medical floor. Put the patient on cardiac diet. Tylenol 650 mg p.o. every 6 hours as needed. Pepcid 20 mg IV twice daily. Colace 100 mg p.o. twice daily, lactulose 10 g per rectally daily Fleet Enema daily. Reconsult GI for evaluation (2) Stercoral colitis Current Visit: Yes Status: Acute Plan to address problem: Levaquin 500 mg p.o. daily. Metronidazole 500 mg p.o. every 8 hours. Pepcid 20 mg IV every 12 hours. Reconsult GI for evaluation and treatment. (3) Dementia Current Visit: Yes Status: Acute Plan to address problem: Stable. Aricept 5 mg p.o. daily. We will monitor the patient closely (4) CHF (congestive heart failure) Current Visit: Yes Status: Acute Plan to address problem: Stable. We will continue the home medication. (5) Constipation Current Visit: Yes Status: Acute Qualifiers: Constipation type: unspecified constipation type Plan to address problem: Colace 100 mg p.o. twice daily, lactulose 10 g per rectally daily .Fleet Enema daily. Reconsult GI for evaluation (6) Fecal impaction in rectum Current Visit: Yes Status: Acute Plan to address problem: Put the patient on cardiac diet. Tylenol 650 mg p.o. every 6 hours as needed. Pepcid 20 mg IV twice daily. Colace 100 mg p.o. twice daily, lactulose 10 g per rectally daily Fleet Enema daily. Reconsult GI for evaluation (7) Renal insufficiency Current Visit: Yes Status: Acute Plan to address problem: Abnormal saline at the rate of 100 cc/h. Avoid nephrotoxic drug. Recheck BMP in the morning (8) DVT prophylaxis Current Visit: Yes Status: Acute Plan to address problem: Heparin 5000 units subcu every 8 hours for DVT prophylaxis. Pepcid 20 mg IV every 12 hours for GI prophylaxis. Patient is a full code 10/04/2020 -Patient was seen by GI and recommend him to be on schedule educations for constipation. Patient had to be bowel movements. -Patient become agitated and more confused this morning likely due to delirium -Once his delirium resolved patient can be discharged back to personal home care. 10/05/2020 Patient with colitis. Continue Levaquin and Flagyl. WBC was 24.1 yesterday. Repeat ordered for today, pending. 10/06/20 Patient with colitis. Continue iv Antibiotics. WBC improving now 11.2. Will obtain CXR History Interval history: patient has dementia, cannot give much history, No fever Hospitalist Physical - Physical exam Narrative exam: Not in cardiopulmonary distress. The patient appeared well nourished and normally developed. Vital signs as documented. Head exam is unremarkable. No scleral icterus . Neck is without jugular venous distension, thyromegaly, or carotid bruits. Lungs are clear to auscultation. Cardiac exam reveals regular rate and Rhythm. Abdominal exam reveals normal bowel sounds, nontender, no organomegaly. Extremities are nonedematous and both femoral and pedal pulses are normal. 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 - Constitutional Vitals: Temp Pulse Resp BP Pulse Ox 98.0 F 57 L 18 119/73 98 10/06/20 05:26 10/06/20 05:26 10/06/20 05:26 10/06/20 05:26 10/06/20 05:26 General appearance: Present: no acute distress, obese Results - Labs CBC & Chem 7: 10/06/20 05:54 10/05/20 06:50 Labs: Laboratory Last Values WBC 11.2 K/mm3 (4.5-11.0) H 10/06/20 05:54 RBC 3.69 M/mm3 (3.65-5.03) 10/06/20 05:54 Hgb 12.1 gm/dl (11.8-15.2) 10/06/20 05:54 Hct 35.2 % (35.5-45.6) L 10/06/20 05:54 MCV 95 fl (84-94) H 10/06/20 05:54 MCH 33 pg (28-32) H 10/06/20 05:54 MCHC 34 % (32-34) 10/06/20 05:54 RDW 14.4 % (13.2-15.2) 10/06/20 05:54 Plt Count 206 K/mm3 (140-440) 10/06/20 05:54 Lymph % (Auto) 11.6 % (13.4-35.0) L 10/05/20 14:00 [place] % (Auto) 5.5 % (0.0-7.3) 10/05/20 14:00 Eos % (Auto) 5.3 % (0.0-4.3) H 10/05/20 14:00 Baso % (Auto) 0.5 % (0.0-1.8) 10/05/20 14:00 Lymph # (Auto) 1.3 K/mm3 (1.2-5.4) 10/05/20 14:00 [place] # (Auto) 0.6 K/mm3 (0.0-0.8) 10/05/20 14:00 Eos # (Auto) 0.6 K/mm3 (0.0-0.4) H 10/05/20 14:00 Baso # (Auto) 0.1 K/mm3 (0.0-0.1) 10/05/20 14:00 Add Manual Diff Complete 10/04/20 08:26 Total Counted 100 10/04/20 08:26 Seg Neutrophils % 77.1 % (40.0-70.0) H 10/05/20 14:00 Seg Neuts % (Manual) 89.0 % (40.0-70.0) H 10/04/20 08:26 Lymphocytes % (Manual) 1.0 % (13.4-35.0) L 10/04/20 08:26 Monocytes % (Manual) 10.0 % (0.0-7.3) H 10/04/20 08:26 Nucleated RBC % Not Reportable 10/04/20 08:26 Seg Neutrophils # 8.9 K/mm3 (1.8-7.7) H 10/05/20 14:00 Seg Neutrophils # Man 21.4 K/mm3 (1.8-7.7) H 10/04/20 08:26 Band Neutrophils # 0.0 K/mm3 10/04/20 08:26 Lymphocytes # (Manual) 0.2 K/mm3 (1.2-5.4) L 10/04/20 08:26 Abs React Lymphs (Man) 0.0 K/mm3 10/04/20 08:26 Monocytes # (Manual) 2.4 K/mm3 (0.0-0.8) H 10/04/20 08:26 Eosinophils # (Manual) 0.0 K/mm3 (0.0-0.4) 10/04/20 08:26 Basophils # (Manual) 0.0 K/mm3 (0.0-0.1) 10/04/20 08:26 Metamyelocytes # 0.0 K/mm3 10/04/20 08:26 Myelocytes # 0.0 K/mm3 10/04/20 08:26 Promyelocytes # 0.0 K/mm3 10/04/20 08:26 Blast Cells # 0.0 K/mm3 10/04/20 08:26 WBC Morphology Not Reportable 10/04/20 08:26 Hypersegmented Neuts Not Reportable 10/04/20 08:26 Hyposegmented Neuts Not Reportable 10/04/20 08:26 Hypogranular Neuts Not Reportable 10/04/20 08:26 Smudge Cells Not Reportable 10/04/20 08:26 Toxic Granulation Not Reportable 10/04/20 08:26 Toxic Vacuolation Not Reportable 10/04/20 08:26 Dohle Bodies Not Reportable 10/04/20 08:26 Pelger-Huet Anomaly Not Reportable 10/04/20 08:26 Vincenzo Rods Not Reportable 10/04/20 08:26 Platelet Estimate Consistent w auto 10/04/20 08:26 Clumped Platelets Not Reportable 10/04/20 08:26 Plt Clumps, EDTA Not Reportable 10/04/20 08:26 Large Platelets Not Reportable 10/04/20 08:26 Giant Platelets Not Reportable 10/04/20 08:26 Platelet Satelliting Not Reportable 10/04/20 08:26 Plt Morphology Comment Not Reportable 10/04/20 08:26 RBC Morphology Normal 10/04/20 08:26 Dimorphic RBCs Not Reportable 10/04/20 08:26 Polychromasia Not Reportable 10/04/20 08:26 Hypochromasia Not Reportable 10/04/20 08:26 Poikilocytosis Not Reportable 10/04/20 08:26 Anisocytosis Not Reportable 10/04/20 08:26 Microcytosis Not Reportable 10/04/20 08:26 Macrocytosis Not Reportable 10/04/20 08:26 Spherocytes Not Reportable 10/04/20 08:26 Pappenheimer Bodies Not Reportable 10/04/20 08:26 Sickle Cells Not Reportable 10/04/20 08:26 Target Cells Not Reportable 10/04/20 08:26 Tear Drop Cells Not Reportable 10/04/20 08:26 Ovalocytes Not Reportable 10/04/20 08:26 Helmet Cells Not Reportable 10/04/20 08:26 [place] Bodies Not Reportable 10/04/20 08:26 [place] Rings Not Reportable 10/04/20 08:26 [place] Cells Not Reportable 10/04/20 08:26 Bite Cells Not Reportable 10/04/20 08:26 Crenated Cell Not Reportable 10/04/20 08:26 Elliptocytes Not Reportable 10/04/20 08:26 Acanthocytes (Spur) Not Reportable 10/04/20 08:26 Rouleaux Not Reportable 10/04/20 08:26 Hemoglobin C Crystals Not Reportable 10/04/20 08:26 Schistocytes Not Reportable 10/04/20 08:26 Malaria parasites Not Reportable 10/04/20 08:26 Maverick Bodies Not Reportable 10/04/20 08:26 Hem Pathologist Commnt No 10/04/20 08:26 Sodium 142 mmol/L (137-145) 10/05/20 06:50 Potassium 4.1 mmol/L (3.6-5.0) 10/05/20 06:50 Chloride 105.0 mmol/L (98-107) 10/05/20 06:50 Carbon Dioxide 26 mmol/L (22-30) 10/05/20 06:50 Anion Gap 15 mmol/L 10/05/20 06:50 BUN 14 mg/dL (9-20) 10/05/20 06:50 Creatinine 0.9 mg/dL (0.8-1.3) 10/05/20 06:50 Estimated GFR > 60 ml/min 10/05/20 06:50 BUN/Creatinine Ratio 16 % 10/05/20 06:50 Glucose 50 mg/dL (75-100) L 10/05/20 06:50 POC Glucose 91 mg/dL (70-105) 10/04/20 16:30 Calcium 8.7 mg/dL (8.4-10.2) 10/05/20 06:50 Total Bilirubin 0.60 mg/dL (0.1-1.2) 10/02/20 22:39 Direct Bilirubin < 0.2 mg/dL (0-0.2) 10/02/20 22:39 Indirect Bilirubin 0.4 mg/dL 10/02/20 22:39 AST 13 units/L (5-40) 10/02/20 22:39 ALT 12 units/L (7-56) 10/02/20 22:39 Alkaline Phosphatase 86 units/L (35-129) 10/02/20 22:39 Total Protein 6.2 g/dL (6.3-8.2) L 10/02/20 22:39 Albumin 3.7 g/dL (3.9-5) L 10/02/20 22:39 Albumin/Globulin Ratio 1.5 % 10/02/20 22:39 Lipase 69 units/L (13-60) H 10/02/20 22:39 Yanez/IV: Voiding Method Incontinent Active Medications - Current Medications Current Medications: Generic Name Dose Route Start Last Admin Trade Name Freq PRN Reason Stop Dose Admin Acetaminophen 650 mg 10/03/20 03:59 Acetaminophen 325 Mg Tab PO Q4H PRN Pain MILD(1-3)/Fever >100.5/HAMLIN Albuterol 2.5 mg 10/03/20 04:03 Albuterol 2.5 Mg/3 Ml Nebu IH Q3HRT PRN Shortness Of Breath Albuterol/Ipratropium 1 ampul 10/03/20 10:00 10/06/20 09:13 Ipratropium/Albuterol Sulfate 3 Ml Ampul.Neb IH 1 ampul DAILY NILDA Administration Aspirin 81 mg 10/03/20 10:00 10/06/20 09:20 Aspirin Ec 81 Mg Tab PO 81 mg QDAY NILDA Administration Atorvastatin Calcium 40 mg 10/03/20 22:00 10/05/20 22:23 Atorvastatin 40 Mg Tab PO 40 mg QHS NILDA Administration Carvedilol 3.125 mg 10/03/20 10:00 10/06/20 08:00 Carvedilol 3.125 Mg Tab PO 3.125 mg BID@0800,1700 NILDA Administration Clopidogrel Bisulfate 75 mg 10/03/20 10:00 10/06/20 09:19 Clopidogrel 75 Mg Tab PO 75 mg QDAY NILDA Administration Donepezil HCl 5 mg 10/03/20 10:00 10/06/20 09:18 Donepezil 5 Mg Tab PO 5 mg DAILY NILDA Administration Ergocalciferol 50,000 unit 10/06/20 10:00 10/06/20 09:18 Ergocalciferol (Vit D2) 50,000 Unit Cap PO 50,000 unit Stewart@1000 NILDA Administration Famotidine 10 mg 10/04/20 10:00 10/06/20 09:20 Famotidine 10 Mg Tab PO 10 mg BID NILDA Administration Heparin Sodium (Porcine) 5,000 unit 10/03/20 06:00 10/06/20 06:07 Heparin 5,000 Unit/1 Ml Vial SUB-Q 5,000 unit Q8HR NILDA Administration Isosorbide Mononitrate 30 mg 10/03/20 10:00 10/06/20 09:19 Isosorbide Mononitrate Er 30 Mg Tab PO 30 mg QDAY NILDA Administration Lactulose 10 gm 10/03/20 04:03 Lactulose 20 Gm/30 Ml Oral Liqd PO DAILY PRN Constipation Levofloxacin 500 mg 10/06/20 10:00 10/06/20 09:20 Levofloxacin 500 Mg Tab PO 500 mg Q24HR NILDA Administration Losartan Potassium 25 mg 10/03/20 10:00 10/06/20 09:20 Losartan 25 Mg Tab PO 25 mg QDAY NILDA Administration Metronidazole 500 mg 10/03/20 06:00 10/06/20 06:07 Metronidazole 500 Mg Tab PO 500 mg Q8HR NILDA Administration Protocol Mirtazapine 30 mg 10/03/20 04:03 10/03/20 23:25 Mirtazapine 30 Mg Tab PO 30 mg QHS PRN Administration Sleep Ondansetron HCl 4 mg 10/03/20 03:59 Ondansetron 4 Mg/2 Ml Inj IV Q8H PRN Nausea And Vomiting Senna 17.2 mg 10/03/20 22:00 10/05/20 22:22 Sennosides 8.6 Mg Tab PO 17.2 mg QHS NILDA Administration Sodium Chloride 10 ml 10/03/20 10:00 10/06/20 09:20 Sodium Chloride 0.9% 10 Ml Flush Syringe IV 10 ml BID NILDA Administration Sodium Chloride 10 ml 10/03/20 03:59 Sodium Chloride 0.9% 10 Ml Flush Syringe IV PRN PRN LINE FLUSH Sterile Water 1.2 ml 10/04/20 12:41 Water For Inj Sterile (Pf) 10 Ml IM Q4H PRN GEODON DILUTION Ziprasidone 10 mg 10/04/20 13:00 10/05/20 05:21 Ziprasidone Mesylate 20 Mg Vial IM 10 mg Q4H PRN Administration AGITATION Nutrition/Malnutrition Assess - Dietary Evaluation Nutrition/Malnutrition Findings: Nutrition Notes Start: 10/04/20 12:44 Freq: Status: Active Protocol: Document 10/04/20 12:44 (Rec: 10/04/20 12:51 [id number]) Nutrition Notes Need for Assessment generated from: MD Order,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 RN screen for MST. Pt unable to communicate well. Per RN, pt refused breakfast and lunch. Burn Absent Trauma Absent GI Symptoms Constipation Current % PO Negligible Minimum of two criteria No physical signs of malnutrition #1 Nutrition Diagnosis Inadequate oral intake Etiology fecal impaction, dementia As Evidenced by Signs and Symptoms pt refusing meals Is patient on ventilator? No Is Patient Ambulatory and/or Out of Bed No REE-([facility]-confined to bed) 1982.132 Kcal/Kg value to use for calculation 16 Approximate Energy Requirements Using 1560 kcal/Kg Calculation Used for Recommendations Kcal/kg Additional Notes Protein: (1-1.2g/kg AdjBW: 86kg) 86-103g Fluid: (30 ml/kg) 2.9L Nutrition Intervention Change Diet Order: Continue Add Supplement/Snack (indicate name/kcal Ensure Enlive TID /protein ) Provides kCal: 1,050 Provides Protein (gm) 60 Goal #1 Meet at least 75% of energy and protein needs via PO and ONS Anticipated Discharge Needs: cardiac Follow-Up By: 10/07/20 Additional Comments FU for intakes and ONS tolerance
--- NOTE | 2020-10-06 11:05 | XRay Report ---
CHEST 1 VIEW 10/06/2020 10:37 AM INDICATION / CLINICAL INFORMATION: leukocytosis. COMPARISON: 08/26/2020 FINDINGS: SUPPORT DEVICES: None. HEART / MEDIASTINUM: Stable. LUNGS / PLEURA: Stable chronic scarring in the lateral right lung. No acute findings. No pneumothorax . ADDITIONAL FINDINGS: No significant additional findings. IMPRESSION: 1. No acute findings. No adverse change from the prior exam. Signer Name: Abe Feng MD Signed: 10/06/2020 11:01 AM Workstation Name: [id number]
[2020-10-06] MEDS: SENNOSIDES 8.6 MG TAB PO SCH (21:51)
[2020-10-07] MEDS: HEPARIN 5,000 UNIT/1 ML VIAL SUB-Q SCH (05:25)
[2020-10-07] MEDS: metroNIDAZOLE 500 MG TAB PO SCH (05:26)
[2020-10-07] MEDS: IPRATROPIUM/ALBUTEROL SULFATE 3 ML AMPUL.NEB IH SCH (09:01)
[2020-10-07] MEDS: ASPIRIN EC 81 MG TAB PO SCH (09:33)
[2020-10-07] MEDS: levoFLOXacin 500 MG TAB PO SCH (09:34)
[2020-10-07] MEDS: carvediloL 3.125 MG TAB PO SCH (09:34)
[2020-10-07] MEDS: FAMOTIDINE 10 MG TAB PO SCH (09:34)
[2020-10-07] MEDS: DONEPEZIL 5 MG TAB PO SCH (09:35)
[2020-10-07] MEDS: CLOPIDOGREL 75 MG TAB PO SCH (09:35)
--- NOTE | 2020-10-07 10:54 | Discharge Summary ---
Providers - Providers Date of Admission: 10/03/20 11:47 Date of discharge: 10/07/20 Attending physician: KULDEEP MCKENZIE 10/03/20 03:59 Consult to Physician [CONS] Routine Comment: Consulting Provider: RIKA SHERMAN Physician Instructions: Reason For Exam: Fecal impaction 10/03/20 16:10 Consult to Dietitian/Nutrition [CONS] Routine Physician Instructions: Reason For Exam: Reason for Consult: Pt needs oral supplement 10/04/20 08:03 Physical Therapy Evaluation and Treat [CONS] Routine Comment: Reason For Exam: need placement 10/04/20 08:04 Occupational Therapy Evaluate and Treat [CONS] Routine Comment: Reason For Exam: Evaluate and treat 10/04/20 13:25 Consult to Wound/ET Nurse [CONS] Routine Reason For Exam: wound eval Primary care physician: INSIDE ACCOUNT EXECUTIVE Hospitalization Condition: Fair Hospital course: 89-year-old male with history of dementia hypertension congestive heart failure depression and COPD was brought to the emergency room because of abdominal pain. Patient is a [facility] a local [facility] and was transferred here via EMS to be evaluated for abdominal pain and constipation. EMS states that the staff at his personal fdc states that he is in pain and has had a bowel movement for 3 or 4 days. EMS states there has not been any reported nausea or vomiting. EMS states there is not any other symptoms. EMS states that the patient is at his neurologic baseline and baseline mentation..Patient is on 2 L of oxygen at home. In the emergency room CT scan of the abdomen shows moderate colonic stool burden, compatible with constipation with distention of the rectal vault, which may reflect fecal impaction. There is mural thickening of the distal rectum and and asked with mild presacral inflammatory stranding, may reflect developing stercoral colitis. He was started on iv [id number], admitted and seen by Gi Physician. Abdominal pain Current Visit: Yes Status: Acute Qualifiers: Abdominal location: unspecified location Qualified Code(s): R10.9 - Unspecified abdominal pain Plan to address problem: Admit the patient to the medical floor. Put the patient on cardiac diet. Tylenol 650 mg p.o. every 6 hours as needed. Pepcid 20 mg IV twice daily. Colace 100 mg p.o. twice daily, lactulose 10 g per rectally daily Fleet Enema daily. Reconsult GI for evaluation (2) Stercoral colitis Current Visit: Yes Status: Acute Plan to address problem: Levaquin 500 mg p.o. daily. Metronidazole 500 mg p.o. every 8 hours. Pepcid 20 mg IV every 12 hours. Reconsult GI for evaluation and treatment. (3) Dementia Current Visit: Yes Status: Acute Plan to address problem: Stable. Aricept 5 mg p.o. daily. We will monitor the patient closely (4) Chronic diastolic CHF (congestive heart failure) Current Visit: Yes Status: Acute Plan to address problem: Stable. We will continue the home medication. (5) Constipation Current Visit: Yes Status: Acute Qualifiers: Constipation type: unspecified constipation type Plan to address problem: Colace 100 mg p.o. twice daily, lactulose 10 g per rectally daily .Fleet Enema daily. Reconsult GI for evaluation (6) Fecal impaction in rectum Current Visit: Yes Status: Acute Plan to address problem: Put the patient on cardiac diet. Tylenol 650 mg p.o. every 6 hours as needed. P epcid 20 mg IV twice daily. Colace 100 mg p.o. twice daily, lactulose 10 g per rectally daily Fleet Enema daily. Reconsult GI for evaluation (7)Acute kidney injury due to vasomotor nephropathy Current Visit: Yes Status: Acute Plan to address problem: Abnormal saline at the rate of 100 cc/h. Avoid nephrotoxic drug. Recheck BMP in the morning (8) DVT prophylaxis Current Visit: Yes Status: Acute Plan to address problem: Heparin 5000 units subcu every 8 hours for DVT prophylaxis. Pepcid 20 mg IV every 12 hours for GI prophylaxis. Patient is a full code 10/04/2020 -Patient was seen by GI and recommend him to be on schedule educations for constipation. Patient had to be bowel movements. -Patient become agitated and more confused this morning likely due to delirium -Once his delirium resolved patient can be discharged back to personal home care. 10/05/2020 Patient with colitis. Continue Levaquin and Flagyl. WBC was 24.1 yesterday. Repeat ordered for today, pending. 10/06/20 Patient with colitis. Continue iv Antibiotics. WBC improving now 11.2. Will obtain CXR 10/07/20 Patient with colitis. He is medically stable to discharge home. Disposition: - TO HOME OR SELFCARE Final Discharge Diagnosis (Prints w/discharge instructions): 1.Colitis Time spent for discharge: 42 mins - Discharge Diagnoses (1) Stercoral colitis Status: Acute (2) Acute abdominal pain Status: Acute (3) RONEN (acute kidney injury) Status: Acute Comment: vasomotor nephropathy (4) Chronic diastolic CHF (congestive heart failure) Status: Acute (5) Vasomotor nephropathy Status: Acute Core Measure Documentation - Palliative Care Palliative Care/ Comfort Measures: Not Applicable - Core Measures Any of the following diagnoses?: none - Heart Failure Discharge Requirements IRMA/ARB for LVSD if EF <40%: Not Applicable Beta janine at discharge: Yes Exam - Constitutional Vitals: Temp Pulse Resp BP Pulse Ox 97.9 F 69 18 126/68 93 10/07/20 05:12 10/07/20 09:34 10/07/20 09:00 10/07/20 09:34 10/07/20 05:12 Plan Activity: advance as tolerated Diet: low fat, low cholesterol, low salt Plan of Treatment: 1.Follow up with PCP in 1 week Follow up with: PRIMARY MD REENA [Primary Care Provider] - 7 Days Prescriptions: metroNIDAZOLE [Flagyl TAB] 500 mg PO Q8HR 5 Days #15 tablet levoFLOXacin [Levaquin TAB] 500 mg PO QDAY 5 Days #5 tablet
[2020-10-07] MEDS: LOSARTAN 25 MG TAB PO SCH (11:15)
[2020-10-07 14:56] VITALS: BP 99/50
== END 2020-10-07 15:40 | disposition home or self-care (01) | DRG 391 ==
LOC: ED 22:11 → 3A 10-03 01:31 → OBSVTOIN 10-03 11:47
PROVIDERS: ADMIT Hospitalist; ATTEND Internal Medicine
DX: K52.89 Other specified noninfective gastroenteritis and colitis (principal); N17.0 Acute kidney failure with tubular necrosis; I50.32 Chronic diastolic (congestive) heart failure; K56.41 Fecal impaction; E86.0 Dehydration; I11.0 Hypertensive heart disease with heart failure; F03.90 Unspecified dementia, unspecified severity, without behavioral disturbance, psychotic disturbance, mood disturbance, and anxiety; J44.9 Chronic obstructive pulmonary disease, unspecified; F32.9 Major depressive disorder, single episode, unspecified; Z88.8 Allergy status to other drugs, medicaments and biological substances; Z88.0 Allergy status to penicillin; Z91.013 Allergy to seafood; Z79.82 Long term (current) use of aspirin; Z79.899 Other long term (current) drug therapy
CPT/HCPCS: 36415; 71045; 74177; 80048; 80076; 82962; 83690; 85007; 85025; 85027; 87641; 94640; G0378; A9270-GY; J1644; J1956; J2060; J3486; J7030; J7512; Q9967